=== PATIENT | male | born 1955 | race Caucasian/White ===

== ENCOUNTER 2018-02-09 20:05 | Observation (INO) | payer MEDICAID, SELFPAY ==
[2018-02-09] VITALS (25 sets, daily range): BP systolic 122–152; BP diastolic 63–101; PULSE 97–126; RESP 4–54; TEMP 36.3–37.6; O2SAT 81–98
[2018-02-09] MEDS: Albuterol/Ipratropium 3 ML UPD VIAL UPD (20:19)
[2018-02-09] MEDS: Albuterol 2.5 MG/3 ML INH SOLN VIAL 7.5 MG UPD (20:19)
--- NOTE | 2018-02-09 20:19 | DI.RAD_ITS ---
SYMPTOM/DIAGNOSIS: SHORTNESS OF BREATH PORTABLE AP CHEST: 2043 HOURS 02/09 The heart is not enlarged. There is question of increased radiodensity projected in right lower lung field , question of acute consolidation raised. Follow up PA and lateral chest requested for further evaluation. Otherwise, lungs appear clear. No gross pleural effusion seen on this frontal film. CONCLUSION: Question right lower lobe infiltrate. PA and lateral chest suggested for further evaluation.
--- NOTE | 2018-02-09 20:19 | ED.GENADUL_ITS ---
Discharge Plan Disposition Patient Disposition: [facility] INPATIENT Condition: Poor Discharge Details Chief Complaint: SOB Clinical Impression: Acute exacerbation of chronic obstructive pulmonary disease (COPD), Right lower lobe pneumonia Primary Care Provider: Wyatt Arnett ED Provider: Sameer Ledbetter [place] Meds and New Rx's Prescriptions: No Action aspirin [Aspirin Low-Strength] 81 MG tablet,chewable 81 mg PO DAILY RF: 0 Oxygen EACH Inhalation IN THE DAYTIME Qty: 0.5 RF: 0 Oxygen EACH Inhalation NIGHTLY Qty: 1 RF: 0 albuterol sulfate [ProAir HFA] 8.5 GM HFA aerosol inhaler 2 puff Inhalation Q6H PRN Qty: 3 RF: 3 fluticasone-salmeterol [Advair HFA] 8 GM HFA aerosol inhaler 2 puff Inhalation BID Qty: 3 RF: 4 ipratropium-albuterol [Combivent Respimat] 4 GM mist 1 puff Inhalation QID Qty: 3 RF: 3 ipratropium-albuterol 3 ML solution for nebulization 3 ml UPD QID Qty: 50 RF: 2 omeprazole 20 MG capsule,delayed release(DR/EC) 20 mg PO DAILY Qty: 90 RF: 4 Medical Decision Making Patient arrives in respiratory distress with markedly diminished breath sounds bilaterally and some very faint wheezing. Has history of COPD. Is reporting some streaks of blood in his sputum. He is ordered for a DuoNeb treatment followed by 7.5 mg of albuterol given over an hour. EKG is obtained and shows no acute ischemia. Chest x-ray and laboratory studies ordered. Solu-Medrol ordered. Patient is responding to treatments. His breathing rate is coming down. He is less distressed. He is having increased air movement and wheezes are louder. Laboratory studies are unremarkable. Troponin is negative. Chest x-ray shows COPD changes as well as a right lower infiltrate. Patient has not had a recent hospitalization. He was admitted in the spring of this year for similar presentation. He will be started on cefepime and Levaquin IV here. I have continued albuterol every hour. Case discussed with hospitalist. Patient at this point is doing much better and is lying at a 45 degree angle as opposed to sitting upright. Respiratory rate still a little fast but he is no longer labored. He has been seen by the hospitalist and is admitted for further management of COPD exacerbation and pneumonia. Medical Records Medical records reviewed: Yes I reviewed the patient's medical records. Lab Data Lab results reviewed: Yes I reviewed the patient's lab results. ECG Data Attestation: I personally reviewed and interpreted this ECG (s) as follows: Interpretation: Sinus tachycardia at a rate of 112. Normal axis and intervals. No acute ST elevations or depressions. HPI General Mode of arrival: wheelchair . Date/Time Provider Initiated Documentation: 02/09/18 20:17 . Information obtained by: patient, family and old records reviewed . HPI Narrative: Patient presents with difficulty breathing as well as complaint of coughing up blood. Patient has an old tracheostomy stoma status post laryngectomy. He reports having increasing shortness of breath, cough, hemoptysis since yesterday. He has some left-sided chest discomfort as well as left neck discomfort. He had no fever that he is aware of. He has been using his nebulizer machine at home with some relief. He has gotten progressively worse and presents now for evaluation. Related Data Home Medications Medication Instructions Recorded Confirmed Oxygen l INHALATION IN THE DAYTIME #0.5 05/13/13 08/30/13 Oxygen l INHALATION NIGHTLY #1 05/13/13 08/30/13 aspirin [Aspirin Low-Strength] 81 mg PO DAILY tab-cap 05/13/13 09/08/17 albuterol sulfate [ProAir HFA] 2 puff INHALATION Q6H PRN #3 02/13/17 inhaler fluticasone-salmeterol [Advair HFA] 2 puff INHALATION BID #3 inhaler 05/05/17 ipratropium-albuterol [Combivent 1 puff INHALATION QID #3 inhaler 08/08/17 Respimat] ipratropium-albuterol 3 ml UPD QID #50 vial 11/16/17 omeprazole 20 mg PO DAILY #90 tab-cap 11/16/17 Previous Rx's Medication Instructions Recorded albuterol sulfate [ProAir HFA] 2 puff INHALATION Q6H PRN #3 02/13/17 inhaler fluticasone-salmeterol [Advair HFA] 2 puff INHALATION BID #3 inhaler 05/05/17 ipratropium-albuterol [Combivent 1 puff INHALATION QID #3 inhaler 08/08/17 Respimat] ipratropium-albuterol 3 ml UPD QID #50 vial 11/16/17 omeprazole 20 mg PO DAILY #90 tab-cap 11/16/17 Allergies Allergy/AdvReac Type Severity Reaction Status Date / Time Influenza Virus Vaccines Allergy Severe Unverified 02/09/18 23:03 pneumococcal vaccine Allergy Severe swells up Unverified 02/09/18 23:03 Review of Systems Review of Systems Unobtainable due to (unable to obtain to acuity of situation/respiratory distress) PFSH Family History Mother Neoplasm Cerebrovascular accident Father Diabetes Heart disease Myocardial infarction Cerebrovascular accident Sister Neoplasm Brother Heart disease Asthma Grandfather No problems noted. Grandfather No problems noted. Grandmother Neoplasm Grandmother No problems noted. Brother No problems noted. Sister No problems noted. Sister No problems noted. Son No problems noted. Daughter No problems noted. Medical History GERD (gastroesophageal reflux disease) (Chronic) COPD (chronic obstructive pulmonary disease) Malignant neoplasm of hypopharynx Pulmonary HTN Social History Smoking/Tobacco Use Status: Former Tobacco Use Surgical History History of esophageal surgery (Inactive) Colonoscopy - MAC Status post laryngectomy Exam Const General: acute distress and anxious Nutritional Appearance: obese Orientation: alert and oriented x3 HENMT Head: normocephalic and atraumatic Eyes Conjunctivae: conjunctivae normal Neck Neck: supple and other (trach stoma present) Resp Effort & Inspection: respiratory distress, tachypneic and uses accessory muscles Auscultation: diminished lung sounds (very decreased) bilaterally and wheezes ( very faint) Cardio Rate: tachycardic Rhythm: regular rhythm Heart Sounds: S1 normal and S2 normal GI Palpation: soft and nontender Skin General skin exam: no rashes or lesions noted Neuro General: alert, oriented x3, no focal motor deficits and CN's II-XI intact bilaterally Extrem General: normal to inspection and no edema Critical Care Time Critical Care Time: Yes Total Critical Care Time: 60
[2018-02-09 20:31] LABS: Abs Immature Grans 0.04 k/cumm (0.0-0.09); Absolute Basophil Count 0.01 k/cumm (0.0-0.2); Absolute Lymphocyte Count 1.39 k/cumm (1.2-3.4); Absolute Monocyte Count 0.88 k/cumm (0.11-0.7); Absolute Neutrophil Count 7.75 k/cumm (1.2-6.7); Basophils % 0.1; HCT 44.2 % (40.0-50.0); HGB 14.7 g/dL (13.5-17.5); Immature Grans % 0.4; Lymphocytes % 13.7; Mean Corp. HGB Concentration 33.3 g/dL (32.0-36.0); Mean Corpuscular Hemoglobin 31.5 pg (27.0-33.0); Mean Corpuscular Volume 94.6 fL (80-95); Mean Platelet Volume 8.9 fL (8.0-11.0); Monocytes % 8.7; Neutrophils % 76.1; Platelet Count 264 x1000/uL (130-400); RBC 4.67 m/cumm (4.50-6.00); White Blood Cell Count 10.17 k/cumm (4.4-10.8)
[2018-02-09] MEDS: Normal Saline Flush 10 ML SYR IVP (20:42)
[2018-02-09] MEDS: methylPREDNISolone SUCC 125 MG VIAL IVP (20:42)
[2018-02-09 20:45] LABS: ALT 70 U/L (12-78); AST 36 U/L (15-37); Albumin 3.4 g/dL (3.4-5.0); Alkaline Phosphatase 157 U/L (46-116); Anion Gap 9.4 mmol/L (3-11); BUN 18 mg/dL (7-18); CO2 30.6 mmol/L (21.0-32.0); CREATININE 0.92 mg/dL (0.70-1.30); Calcium 8.9 mg/dL (8.5-10.1); Chloride 99 mmol/L (98-107); Glucose 112 mg/dL (70-100); Magnesium 2.4 mg/dL (1.8-2.4); Sodium 139 mmol/L (136-145)
--- NOTE | 2018-02-09 21:00 | DI.VRAD_ITS ---
EXAM: XR Chest, 1 View CLINICAL HISTORY: 62 years old, male; Signs and symptoms; Shortness of breath TECHNIQUE: Frontal view of the chest. COMPARISON: CR PORTABLE CHEST ONE VIEW 07/11/2017 12:29 PM FINDINGS: Lungs: Pulmonary hyperinflation is again seen consistent with emphysema. Patchy interstitial opacity in the right lung base. Pleural space: Slight blunting of the right costophrenic angle. No pneumothorax. Heart: No focal pathology. No cardiomegaly. Mediastinum: Unremarkable. Bones/joints: Unremarkable. IMPRESSION: 1. Pulmonary hyperinflation is again seen consistent with emphysema. 2. Patchy interstitial opacity in the right lung base. A new infiltrate or aspiration is possible. 3. Slight blunting of the right costophrenic angle. Consider trace effusion versus pleural thickening. Dictated and Authenticated by: Venita Guadarrama MD. Ordering:GABRIELLE ANDERSON MD
[2018-02-09 21:02] LABS: Bilirubin, Total 1.3 mg/dL (0.2-1.0); Total Protein 8.8 g/dL (6.4-8.2)
[2018-02-09 21:05] LABS: Troponin I < 0.02 ng/mL (0.00-0.06)
[2018-02-09] MEDS: CEFEPIME 1 GM in Normal Saline 50 ML IVPB (22:00)
--- NOTE | 2018-02-09 22:12 | W.PM.HP.N ---
Date of service: 02/09/18 Time of Service: 22:12 Assessment and Plan (1) COPD (chronic obstructive pulmonary disease): Current visit: Yes Status: Chronic COPD exacerbation. Unclear that there is in fact pneumonia but at a minimal amount certainly bronchitis. We will continue steroids, updrafts and antibiotics. I think that Levaquin alone is probably sufficient coverage here History of Present Illness Chief Complaint: cough and SOB Narrative: Patient is a 62-year-old male with COPD who comes in with a 2 days of cough and shortness of breath. In the emergency room he was noted to be wheezing and initial evaluation showed possible right lower lobe pneumonia. He was given updrafts, steroids and doses of cefepime and Levaquin. He states he feels much better. He is admitted for further evaluation and management Review of Systems Review of Systems All systems reviewed & are unremarkable except as noted in HPI and below PFSH Family History Mother Neoplasm Cerebrovascular accident Father Diabetes Heart disease Myocardial infarction Cerebrovascular accident Sister Neoplasm Brother Heart disease Asthma Grandfather No problems noted. Grandfather No problems noted. Grandmother Neoplasm Grandmother No problems noted. Brother No problems noted. Sister No problems noted. Sister No problems noted. Son No problems noted. Daughter No problems noted. Medical History COPD (chronic obstructive pulmonary disease) Malignant neoplasm of hypopharynx Pulmonary HTN Status post laryngectomy Social History Smoking/Tobacco Use Status: Former Tobacco Use Surgical History Colonoscopy - MAC Meds Home Medications Medication Instructions Recorded Confirmed Type Oxygen l INHALATION IN THE DAYTIME #0.5 05/13/13 08/30/13 History Oxygen l INHALATION NIGHTLY #1 05/13/13 08/30/13 History aspirin [Aspirin Low-Strength] 81 mg PO DAILY tab-cap 05/13/13 09/08/17 History albuterol sulfate [ProAir HFA] 2 puff INHALATION Q6H PRN #3 02/13/17 Rx inhaler fluticasone-salmeterol [Advair HFA] 2 puff INHALATION BID #3 inhaler 05/05/17 Rx ipratropium-albuterol [Combivent 1 puff INHALATION QID #3 inhaler 08/08/17 Rx Respimat] ipratropium-albuterol 3 ml UPD QID #50 vial 11/16/17 Rx magnesium oxide 400 mg PO HS #90 tab 11/16/17 Rx omeprazole 20 mg PO DAILY #90 tab-cap 11/16/17 Rx Allergies Allergy/AdvReac Type Severity Reaction Status Date / Time Influenza Virus Vaccines Allergy Severe Unverified 09/19/17 06:42 pneumococcal vaccine Allergy Severe swells up Unverified 09/19/17 06:42 Exam Narrative Exam Narrative: Blood pressure 132/73 pulse approximately 116 and record respirations at the time of my exam approximately 24. I am unable to locate a recorded temperature. Patient appears comfortable. HEENT unremarkable neck of note for a tracheostomy. Lungs show diminished breath sounds with faint wheezing. Heart is distant but tachycardic and regular abdomen is soft and nontender extremities without edema neurological patient is alert and oriented. He is unable to speak due to prior laryngectomy but he communicates lucidly with yes and no responses to questions and some hand signals. He moves all 4 extremities. Results Labs : 02/09/18 20:21 02/09/18 20:21 Laboratory Results - last 24 hr 02/09/18 02/09/18 20:21 20:21 WBC 10.17 RBC 4.67 Hgb 14.7 Hct 44.2 MCV 94.6 MCH 31.5 MCHC 33.3 RDW 13.0 Plt Count 264 MPV 8.9 Immature Gran % 0.4 Neutrophils % 76.1 Lymphocytes % 13.7 Monocytes % 8.7 Eosinophils % 1.0 Basophils % 0.1 Absolute Neutrophils 7.75 H Absolute Lymphocytes 1.39 Absolute Monocytes 0.88 H Absolute Eosinophils 0.10 Absolute Basophils 0.01 Sodium 139 Potassium 4.0 Chloride 99 Carbon Dioxide 30.6 Anion Gap 9.4 BUN 18 Creatinine 0.92 Estimated GFR/1.73 m2 >= 60.00 Glucose 112 H Calcium 8.9 Magnesium 2.4 Total Bilirubin 1.3 H AST 36 ALT 70 Alkaline Phosphatase 157 H Troponin I < 0.02 Total Protein 8.8 H Albumin 3.4
[2018-02-09] MEDS: LEVOFLOXACIN 500 MG/100 ML BAG 100 MG IVPB (22:25)
[2018-02-10] VITALS (9 sets, daily range): BP systolic 124–132; BP diastolic 67–79; PULSE 83–86; RESP 2–30; TEMP 36–36.1; O2SAT 93–96
[2018-02-10] MEDS: Albuterol/Ipratropium 3 ML UPD VIAL UPD ×5 (00:32→23:51)
[2018-02-10] MEDS: methylPREDNISolone SUCC 40 MG VIAL IVP ×3 (04:36→21:05)
[2018-02-10] MEDS: Normal Saline Flush 10 ML SYR IVP ×3 (04:37→21:06)
--- NOTE | 2018-02-10 07:06 | PDOC.CMIN ---
- If Service Date Differs Date of service: 02/10/18 Time of Service: 07:06 Care Management Initial Assess REASON FOR HOSPITALIZATION:: COPD. PAST MEDICAL HISTORY/PAST SURGICAL HISTORY:: COPD, GERD, malignant neoplasm of hypopharynx, pulmonary hypertension. Surgical hx: colonoscopy-MAC, esophageal surgery, laryngectomy. CURRENT FUNCTIONAL STATUS:: Hussein is sitting on the edge of his bed when CM visits this morning. Patient has a history of COPD s/p laryngectomy with tracheostomy for malignant neoplasm of the hypopharynx. Hussein does not have a 'voice box' so communicating is difficult. He is able to report that he feels better, is not in need of anything and is comfortable. ADVANCE DIRECTIVES:: On file at [facility]. Has patient been provided with information about the portal?: Yes Did the patient sign up for the portal?: No CODE STATUS:: Full Code INSURANCE COVERAGE / FINANCIAL ISSUES:: Medicaid. PRIMARY CARE PHYSICIAN:: Wyatt Arnett. POTENTIAL DISCHARGE NEEDS:: Follow up appointment with PCP. PATIENT/FAMILY EDUCATION NEEDS:: Discharge education, any limitations, and follow up plan of care. Ask Me Three discussion. ANTICIPATED BARRIERS TO DISCHARGE:: No anticipated barriers to discharge. PLAN:: Hussein will discharge home when medically ready per MD. Anticipate patient will discharge with no services and follow up with PCP. CM will continue to offer support to patient and care team regarding discharge planning and disposition.
--- NOTE | 2018-02-10 07:10 | INITIAL_ITS ---
- If Service Date Differs Date of service: 02/10/18 Time of Service: 07:06 Care Management Initial Assess REASON FOR HOSPITALIZATION:: COPD. PAST MEDICAL HISTORY/PAST SURGICAL HISTORY:: COPD, GERD, malignant neoplasm of hypopharynx, pulmonary hypertension. Surgical hx: colonoscopy-MAC, esophageal surgery, laryngectomy. CURRENT FUNCTIONAL STATUS:: Hussein is sitting on the edge of his bed when CM visits this morning. Patient has a history of COPD s/p laryngectomy with tracheostomy for malignant neoplasm of the hypopharynx. Hussein does not have a ' voice box' so communicating is difficult. He is able to report that he feels better, is not in need of anything and is comfortable. ADVANCE DIRECTIVES:: On file at [facility]. Has patient been provided with information about the portal?: Yes Did the patient sign up for the portal?: No CODE STATUS:: Full Code INSURANCE COVERAGE / FINANCIAL ISSUES:: Medicaid. PRIMARY CARE PHYSICIAN:: Wyatt Arnett. POTENTIAL DISCHARGE NEEDS:: Follow up appointment with PCP. PATIENT/FAMILY EDUCATION NEEDS:: Discharge education, any limitations, and follow up plan of care. Ask Me Three discussion. ANTICIPATED BARRIERS TO DISCHARGE:: No anticipated barriers to discharge. PLAN:: Hussein will discharge home when medically ready per MD. Anticipate patient will discharge with no services and follow up with PCP. CM will continue to offer support to patient and care team regarding discharge planning and disposition.
[2018-02-10] MEDS: Omeprazole 20 MG CAPCR PO (08:24)
[2018-02-10] MEDS: Aspirin 81 MG CHEW PO (08:24)
--- NOTE | 2018-02-10 11:23 | W.PM.PROGNOT ---
Assessment and Plan (1) COPD (chronic obstructive pulmonary disease): Current visit: Yes Status: Chronic Patient states he feels his respiratory status has improved overnight we will continue IV steroids levofloxacin daily scheduled duo nebs. Continue to closely monitor (2) Acute respiratory failure: Current visit: No Status: Acute Improved with oxygen saturations back to his baseline on his home oxygen delivery rate. Will continue to monitor (3) DVT prophylaxis: Current visit: Yes Status: Acute Enoxaparin daily KASIA stockings (4) Discharge planning issues: Current visit: Yes Status: Acute Will discharge to home with no new services once he is medically stable (5) GERD (gastroesophageal reflux disease): Current visit: Yes Status: Chronic Stable continue omeprazole daily (6) Pulmonary hypertension: Current visit: No Status: Chronic Continue oxygen continuous Subjective Patient reports: no new complaints and feels better Interval history since last seen: This is a 62-year-old male patient with a history of COPD 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 Workup in the emergency department was concerning for a possible right lower lobe pneumonia and COPD exacerbation. He has been started on steroids, updrafts and antibiotics. He was admitted to the hospitalist services for inpatient management. Today he states his breathing is slightly improved but not back to baseline. He states he is eating and drinking bowels and bladder are functioning, oxygen sats were in the low 90s on his home flow of oxygen. He denies fever or chills. There are no new complaints Exam Const General: cooperative, healthy appearing, comfortable and no acute distress Nutritional Appearance: average body habitus Orientation: alert, awake and oriented x3 HENMT Head: normal to inspection Mouth: moist mucous membranes abnormal Neck Neck: other (Trach site is intact, stoma edges clear no redness or purulent drainage. Patient self suctions without difficulty) Resp Effort & Inspection: normal respiratory effort, cough, not labored and no respiratory distress Auscultation: diminished lung sounds (Bilaterally no wheezing or coarse breath sounds noted) Cardio Rate: regular rate Rhythm: regular rhythm GI Inspection: normal to inspection Palpation: soft and nontender Skin General skin exam: no rashes or lesions noted Neuro General: alert, awake and oriented x3 Extrem General: normal to inspection and full ROM Objective Objective Clinical Data: Abnormal lab results 02/09/18 02/09/18 Range/Units 20:21 20:21 Absolute Neutrophils 7.75 H (1.2-6.7) k/cumm Absolute Monocytes 0.88 H (0.11-0.7) k/cumm Glucose 112 H (70-100) mg/dL Total Bilirubin 1.3 H (0.2-1.0) mg/dL Alkaline Phosphatase 157 H (46-116) U/L Total Protein 8.8 H (6.4-8.2) g/dL Vital Signs Temperature 36 C L 02/10/18 07:15 Temperature Source Tympanic 02/10/18 07:15 Pulse 86 02/10/18 07:15 Pulse Rhythm Regular 02/09/18 23:22 Pulse 108 H 02/09/18 22:20 Respiratory Rate 18 02/10/18 07:15 Respiratory Effort 02/09/18 23:22 Respiratory Depth Normal 02/09/18 23:22 Respiratory Pattern Normal 02/09/18 23:22 Blood Pressure 132/79 02/10/18 07:15 Blood Pressure Mean 85 02/09/18 22:01 Blood Pressure Position Sitting 02/09/18 20:10 Pulse Oximetry 93 L 02/10/18 07:15 Oxygen Delivery Method Room Air 02/10/18 07:15 Oxygen Flow Rate 0 02/10/18 07:15 Pain Level 3 02/09/18 20:35 Comment 02/09/18 20:10 Intake & Output 02/09/18 02/09/18 02/10/18 11:59 23:59 11:59 Intake Total 110 / 110 900 / 900 Balance 110 / 110 900 / 900 Weight 98.883 kg 98.883 kg Intake: IV 110 / 110 Oral 900 / 900 Laboratory Results WBC 10.17 k/cumm (4.4-10.8) 02/09/18 20:21 RBC 4.67 m/cumm (4.50-6.00) 02/09/18 20:21 Hgb 14.7 g/dL (13.5-17.5) 02/09/18 20:21 Hct 44.2 % (40.0-50.0) 02/09/18 20:21 MCV 94.6 fL (80-95) 02/09/18 20:21 MCH 31.5 pg (27.0-33.0) 02/09/18 20:21 MCHC 33.3 g/dL (32.0-36.0) 02/09/18 20:21 RDW 13.0 % (11.8-14.1) 02/09/18 20:21 Plt Count 264 x1000/uL (130-400) 02/09/18 20:21 MPV 8.9 fL (8.0-11.0) 02/09/18 20:21 Immature Gran % 0.4 02/09/18 20:21 Neutrophils % 76.1 02/09/18 20:21 Lymphocytes % 13.7 02/09/18 20:21 Monocytes % 8.7 02/09/18 20:21 Eosinophils % 1.0 02/09/18 20: Basophils % 0.1 02/09/18 20:21 Absolute Neutrophils 7.75 k/cumm (1.2-6.7) H 02/09/18 20:21 Absolute Lymphocytes 1.39 k/cumm (1.2-3.4) 02/09/18 20:21 Absolute Monocytes 0.88 k/cumm (0.11-0.7) H 02/09/18 20:21 Absolute Eosinophils 0.10 k/cumm (0.0-0.7) 02/09/18 20:21 Absolute Basophils 0.01 k/cumm (0.0-0.2) 02/09/18 20:21 Sodium 139 mmol/L (136-145) 02/09/18 20:21 Potassium 4.0 mmol/L (3.5-5.1) 02/09/18 20:21 Chloride 99 mmol/L (98-107) 02/09/18 20:21 Carbon Dioxide 30.6 mmol/L (21.0-32.0) 02/09/18 20:21 Anion Gap 9.4 mmol/L (3-11) 02/09/18 20:21 BUN 18 mg/dL (7-18) 02/09/18 20:21 Creatinine 0.92 mg/dL (0.70-1.30) 02/09/18 20:21 Estimated GFR/1.73 m2 >= 60.00 (mL/min/1.73m2) 02/09/18 20:21 Glucose 112 mg/dL (70-100) H 02/09/18 20:21 Calcium 8.9 mg/dL (8.5-10.1) 02/09/18 20:21 Magnesium 2.4 mg/dL (1.8-2.4) 02/09/18 20:21 Total Bilirubin 1.3 mg/dL (0.2-1.0) H 02/09/18 20:21 AST 36 U/L (15-37) 02/09/18 20:21 ALT 70 U/L (12-78) 02/09/18 20:21 Alkaline Phosphatase 157 U/L (46-116) H 02/09/18 20:21 Troponin I < 0.02 ng/mL (0.00-0.06) 02/09/18 20:21 Total Protein 8.8 g/dL (6.4-8.2) H 02/09/18 20:21 Albumin 3.4 g/dL (3.4-5.0) 02/09/18 20:21
[2018-02-10] MEDS: LEVOFLOXACIN 750 MG/150 ML BAG 150 MG IVPB (21:07)
[2018-02-11] MEDS: Normal Saline Flush 10 ML SYR IVP (05:00)
[2018-02-11] MEDS: methylPREDNISolone SUCC 40 MG VIAL IVP (05:00)
[2018-02-11] MEDS: Albuterol/Ipratropium 3 ML UPD VIAL UPD (07:13)
[2018-02-11 07:25] VITALS: BP 133/80; PULSE 78; RESP 16; TEMP 36.2; O2SAT 98
[2018-02-11] MEDS: Enoxaparin 40 MG/0.4 ML SYR SC (08:22)
[2018-02-11] MEDS: Aspirin 81 MG CHEW PO (08:22)
[2018-02-11] MEDS: Omeprazole 20 MG CAPCR PO (08:22)
--- NOTE | 2018-02-11 11:33 | PDOC.CMDIS ---
- If Service Date Differs Date of service: 02/11/18 Time of Service: 11:33 LACE Index Scoring Tool - Questions: Length of Stay (in days): 3 Acuity (Admit via E.D.?): Yes Comorbidities: Chronic Pulmonary Disease E.D. Visits: 3 - Answers: Total Score: 11 Risk of Readmission: High Risk Care Management Discharge Reason for Hospitalization: COPD. Discharge Plan: Hussein will discharge home when medically ready per MD. Anticipate patient will discharge with no services and follow up with his PCP. Hussein will need supplemental O2 for transport. Hussein will transport via private vehicle with his sister. Patient/Family Education Needs: Discharge education, any limitations and follow up plan of care. Ask Me Three discussion. Hussein will require supplemental O2 for transport.
--- NOTE | 2018-02-11 12:09 | DSE_ITS ---
Date of service: 02/11/18 DS: Diagnosis Discharge Diagnosis (1) COPD (chronic obstructive pulmonary disease): Status: Chronic (2) Acute respiratory failure: Status: Acute (3) DVT prophylaxis: Status: Acute (4) Discharge planning issues: Status: Acute (5) GERD (gastroesophageal reflux disease): Status: Chronic (6) Pulmonary hypertension: Status: Chronic Discharge Plan Disposition Patient Disposition: HOME Condition: Improving Discharge Details Reason For Visit: COPD Admit Date/Time: 02/09/18 22:21 Admit Provider: Onel Zuñiga Attending Provider: Onel Zuñiga Primary Care Provider: Wyatt Arnett [facility] Course Hospital Course: This is a 62-year-old male patient with a history of COPD 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 Workup in the emergency department was concerning for a possible right lower lobe pneumonia and COPD exacerbation. He has been started on steroids, updrafts and antibiotics. He was admitted to the hospitalist services for inpatient management. His symptoms have continued to improve. He states he is eating and drinking bowels and bladder are functioning, oxygen sats were in the low 90s on his home flow of oxygen. He denies fever or chills. There are no new complaints. Hemodynamically has been stable and is ready for discharge to home. He will be advised to follow-up with his primary care provider this week and to return sooner for new or worsening symptoms. His prescriptions will be called to [facility] [place]. He will complete a steroid taper and 3 more days of levofloxacin to complete a 5-day course Home Meds and New Rx's Prescriptions: New levofloxacin [Levaquin] 750 mg tablet 750 mg PO HS Qty: 3 RF: 0 prednisone 10 mg tablet 10 mg PO DAILY Qty: 40 RF: 0 Continue aspirin [Aspirin Low-Strength] 81 MG tablet,chewable 81 mg PO DAILY RF: 0 Oxygen EACH Inhalation IN THE DAYTIME Qty: 0.5 RF: 0 Oxygen EACH Inhalation NIGHTLY Qty: 1 RF: 0 albuterol sulfate [ProAir HFA] 8.5 GM HFA aerosol inhaler 2 puff Inhalation Q6H PRN Qty: 3 RF: 3 fluticasone-salmeterol [Advair HFA] 8 GM HFA aerosol inhaler 2 puff Inhalation BID Qty: 3 RF: 4 ipratropium-albuterol [Combivent Respimat] 4 GM mist 1 puff Inhalation QID Qty: 3 RF: 3 ipratropium-albuterol 3 ML solution for nebulization 3 ml UPD QID Qty: 50 RF: 2 omeprazole 20 MG capsule,delayed release(DR/EC) 20 mg PO DAILY Qty: 90 RF: 4 Discharge Instructions Instructions: COPD (Chronic Obstructive Pulmonary Disease) (DC) Additional Instructions: Continue your antibiotics Levaquin 750 mg starting tonight for 3 more nights to complete a 5-day course Steroid taper prednisone starting with 40 mg daily for 3 days then 30 mg daily for 3 days then 20 mg daily for 3 days then 10 mg daily for 3 days then 5 mg daily for 3 days then discontinue Stand Alone Forms: Nursing Discharge Form Referrals: Wyatt Arnett MD [Primary Care Provider] - (Please call your PCP on Monday to schedule a follow-up appointment for within two weeks. [phone]) Activity:: Activity as Tolerated Equipment/Supplies:: No Equipment Needed Diet:: As Tolerated Discharge Orders Discharge Orders: Discharge Order (Routine); Ordered 02/11/18 Ordered By: Mony Block Exam Const General: cooperative, healthy appearing, comfortable and no acute distress Nutritional Appearance: average body habitus Orientation: alert, awake and oriented x3 HENMT Head: normal to inspection, normocephalic and atraumatic Mouth: moist mucous membranes Neck Neck: other (trach site clear and intact and patent) Chest Chest: normal inspection of the chest Resp Effort & Inspection: normal respiratory effort Auscultation: diminished lung sounds bilaterally and wheezes expiratory wheezes (faint) Cardio Rate: regular rate Rhythm: regular rhythm GI Inspection: normal to inspection Palpation: soft Auscultation: normal bowel sounds Skin General skin exam: no rashes or lesions noted Neuro General: alert, awake and oriented x3 Extrem General: normal to inspection and full ROM DS: Data Vitals/I&O Vitals and I&O: Vital Signs Temperature 36.2 C L 02/11/18 07:25 Temperature Source Tympanic 02/11/18 07:25 Pulse 78 02/11/18 07:25 Pulse Rhythm Regular 02/11/18 10:05 Pulse 108 H 02/09/18 22:20 Respiratory Rate 16 02/11/18 07:25 Respiratory Effort Non-Labored 02/11/18 10:05 Respiratory Depth Normal 02/11/18 10:05 Respiratory Pattern Normal 02/11/18 10:05 Blood Pressure 133/80 02/11/18 07:25 Blood Pressure Mean 85 02/09/18 22:01 Blood Pressure Position Sitting 02/09/18 20:10 Pulse Oximetry 98 02/11/18 07:25 Oxygen Delivery Method Trach Collar 02/11/18 07:25 Oxygen Flow Rate 5 02/11/18 07:25 Fraction of Inspired Oxygen (FIO2) 02/10/18 23:37 Pain Level 3 02/09/18 20:35 Comment 02/09/18 20:10 Intake & Output 02/10/18 02/11/18 02/11/18 23:59 11:59 23:59 Intake Total 640 / 640 Balance 640 / 640 Intake: IV 150 / 150 Oral 490 / 490 Pending studies at discharge: Insertion of indwelling urinary catheter (07/01/13) Introduction of Other Therapeutic Substance into Respiratory Tract, Via Natural or Artificial Opening (07/11/17) Monitoring of Cardiac Electrical Activity, External Approach (07/11/17) Non-invasive mechanical ventilation (07/01/13) [Endoscopic] polypectomy of rectum (08/30/13) WBC 10.17 k/cumm (4.4-10.8) 02/09/18 20:21 RBC 4.67 m/cumm (4.50-6.00) 02/09/18 20:21 Hgb 14.7 g/dL (13.5-17.5) 02/09/18 20:21 Hct 44.2 % (40.0-50.0) 02/09/18 20:21 MCV 94.6 fL (80-95) 02/09/18 20:21 MCH 31.5 pg (27.0-33.0) 02/09/18 20:21 MCHC 33.3 g/dL (32.0-36.0) 02/09/18 20:21 RDW 13.0 % (11.8-14.1) 02/09/18 20:21 Plt Count 264 x1000/uL (130-400) 02/09/18 20:21 MPV 8.9 fL (8.0-11.0) 02/09/18 20:21 Immature Gran % 0.4 02/09/18 20:21 Neutrophils % 76.1 02/09/18 20:21 Lymphocytes % 13.7 02/09/18 20:21 Monocytes % 8.7 02/09/18 20:21 Eosinophils % 1.0 02/09/18 20:21 Basophils % 0.1 02/09/18 20:21 Absolute Neutrophils 7.75 k/cumm (1.2-6.7) H 02/09/18 20:21 Absolute Lymphocytes 1.39 k/cumm (1.2-3.4) 02/09/18 20:21 Absolute Monocytes 0.88 k/cumm (0.11-0.7) H 02/09/18 20:21 Absolute Eosinophils 0.10 k/cumm (0.0-0.7) 02/09/18 20:21 Absolute Basophils 0.01 k/cumm (0.0-0.2) 02/09/18 20:21 Sodium 139 mmol/L (136-145) 02/09/18 20:21 Potassium 4.0 mmol/L (3.5-5.1) 02/09/18 20:21 Chloride 99 mmol/L (98-107) 02/09/18 20:21 Carbon Dioxide 30.6 mmol/L (21.0-32.0) 02/09/18 20:21 Anion Gap 9.4 mmol/L (3-11) 02/09/18 20:21 BUN 18 mg/dL (7-18) 02/09/18 20:21 Creatinine 0.92 mg/dL (0.70-1.30) 02/09/18 20:21 Estimated GFR/1.73 m2 >= 60.00 (mL/min/1.73m2) 02/09/18 20:21 Glucose 112 mg/dL (70-100) H 02/09/18 20:21 Calcium 8.9 mg/dL (8.5-10.1) 02/09/18 20:21 Magnesium 2.4 mg/dL (1.8-2.4) 02/09/18 20:21 Total Bilirubin 1.3 mg/dL (0.2-1.0) H 02/09/18 20:21 AST 36 U/L (15-37) 02/09/18 20:21 ALT 70 U/L (12-78) 02/09/18 20:21 Alkaline Phosphatase 157 U/L (46-116) H 02/09/18 20:21 Troponin I < 0.02 ng/mL (0.00-0.06) 02/09/18 20:21 Total Protein 8.8 g/dL (6.4-8.2) H 02/09/18 20:21 Albumin 3.4 g/dL (3.4-5.0) 02/09/18 20:21 Labs on day of discharge: Preliminary micro results at discharge 02/09/18 22:48 Blood Culture - Preliminary Blood NO GROWTH 24 HOURS 02/09/18 22:23 Blood Culture - Preliminary Blood NO GROWTH 24 HOURS
== END 2018-02-11 13:44 | disposition home or self-care (01) ==
LOC: ER 23:10 → MS 02-10 07:14
PROVIDERS: Admitting Provider General Practice; Emergency Provider Emergency Medicine; PCP Family Medicine; Visit Provider Family Medicine
DX: J44.1 Chronic obstructive pulmonary disease with (acute) exacerbation (principal); J96.00 Acute respiratory failure, unspecified whether with hypoxia or hypercapnia; K21.9 Gastro-esophageal reflux disease without esophagitis; I27.20 Pulmonary hypertension, unspecified; Z87.891 Personal history of nicotine dependence; Z85.21 Personal history of malignant neoplasm of larynx; Z90.02 Acquired absence of larynx
CPT/HCPCS: 36415; 80053; 87040; 93005; 94640; 96365; 96367; 96375; 99222; 99232; 99238; 99291; J1650; 71045; 83735; 84484; 85025; 93010; 99217; 99219; 99225; G0378; J1956; J2930; J7613; J7620

== ENCOUNTER 2018-02-22 09:53 | Outpatient (CLI) | payer MEDICAID, SELFPAY ==
[2018-02-22 11:16] LABS: Abs Immature Grans 0.08 k/cumm (0.0-0.09); Absolute Basophil Count 0.02 k/cumm (0.0-0.2); Absolute Eosinophil Count 0.08 k/cumm (0.0-0.7); Absolute Lymphocyte Count 0.83 k/cumm (1.2-3.4); Absolute Monocyte Count 0.45 k/cumm (0.11-0.7); Basophils % 0.2; Eosinophils % 0.7; Immature Grans % 0.7; Lymphocytes % 6.9; Mean Corp. HGB Concentration 32.6 g/dL (32.0-36.0); Mean Corpuscular Hemoglobin 31.2 pg (27.0-33.0); Mean Corpuscular Volume 95.6 fL (80-95); Mean Platelet Volume 9.1 fL (8.0-11.0); Monocytes % 3.7; Neutrophils % 87.8; Platelet Count 265 x1000/uL (130-400); RBC 4.81 m/cumm (4.50-6.00); RBC Distribution Width 13.2 % (11.8-14.1); White Blood Cell Count 12.05 k/cumm (4.4-10.8)
[2018-02-22 11:25] LABS: Absolute Neutrophil Count 10.58 k/cumm (1.2-6.7)
[2018-02-22 12:02] LABS: ALT 72 U/L (12-78); AST 28 U/L (15-37); Albumin 3.4 g/dL (3.4-5.0); Alkaline Phosphatase 147 U/L (46-116); Anion Gap 6.7 mmol/L (3-11); BUN 23 mg/dL (7-18); Bilirubin, Total 0.4 mg/dL (0.2-1.0); CO2 31.3 mmol/L (21.0-32.0); CREATININE 0.93 mg/dL (0.70-1.30); Calcium 8.6 mg/dL (8.5-10.1); Chloride 102 mmol/L (98-107); Glucose 112 mg/dL (70-100); Sodium 140 mmol/L (136-145); TSH (W/Ref FT4) 2.01 uIU/mL (0.358-3.74); Total Protein 7.3 g/dL (6.4-8.2)
== END 2018-02-22 10:13 ==
PROVIDERS: PCP Family Medicine; Visit Provider Internal Medicine
DX: J44.9 Chronic obstructive pulmonary disease, unspecified (principal); I27.0 Primary pulmonary hypertension; R60.9 Edema, unspecified; Z90.02 Acquired absence of larynx; E07.9 Disorder of thyroid, unspecified; C13.9 Malignant neoplasm of hypopharynx, unspecified
CPT/HCPCS: 36415; 80053; 84443; 85025

== ENCOUNTER 2018-02-28 01:05 | Outpatient (CLI) | payer MEDICAID, SELFPAY ==
--- NOTE | 2018-02-28 14:41 | DI.CT_ITS ---
SYMPTOMS/DIAGNOSIS: NECK PAIN, THYROID MASS, M54.2, E07.9, TRACH HOLE IN THROAT CT OF THE NECK: The study was carried out with an intravenous administration of 100 cc's of Omnipaque 350. Comparison is made with the prior examination of 07/09/17. The patient is status post laryngectomy. As visualized the park and hypopharynx appear intact or no retropharyngeal soft tissue abnormality. Again noted is a tracheostomy stoma without a endotracheal tube in place. Again noted is tracheal narrowing. The transverse diameter of the trachea measuring 7.4 mm vs 5.2 mm on the prior study. Again noted is an enlarged left thyroid lobe unchanged with absence of the right thyroid lobe. SUMMARY: The left thyroid lobe is somewhat enlarged and is unchanged in size when compared with the prior examination of 07/09/17. The patient has had a laryngectomy. The transverse diameter of the trachea today measures 7.4 mm vs 4- 6 mm on the prior study. No mass or adenopathy is identified. A tracheostomy stoma is well maintained. There is no evidence of an endotracheal tube.
[2018-02-28] MEDS: Omnipaque 350 MG/ML 100 ML BTL IJ (15:39)
== END 2018-02-28 01:25 ==
PROVIDERS: PCP Family Medicine; Visit Provider Internal Medicine
DX: M54.2 Cervicalgia (principal); E07.9 Disorder of thyroid, unspecified; Z90.02 Acquired absence of larynx; Z93.0 Tracheostomy status
CPT/HCPCS: 70491; J3490

== ENCOUNTER 2018-05-16 15:15 | Emergency (ER) | payer MEDICAID, SELFPAY ==
[2018-05-16 15:23] VITALS: BP 138/73; PULSE 109; RESP 26; TEMP 36.5; O2SAT 87
[2018-05-16] MEDS: Albuterol/Ipratropium 3 ML UPD VIAL UPD ×3 (15:32→16:49)
--- NOTE | 2018-05-16 15:36 | DI.RAD_ITS ---
SYMPTOMS/DIAGNOSIS: COUGH, CHILLS, SHORTNESS OF BREATH PA AND LATERAL CHEST: Comparison is made with January,. The heart size is normal. The lungs are mildly hyperinflated. No infiltrate or effusion is seen. IMPRESSION: Negative chest x-ray.
--- NOTE | 2018-05-16 15:41 | ED.GENADUL_ITS ---
Discharge Plan Disposition Patient Disposition: HOME Condition: Improving Discharge Details Chief Complaint: SOB Clinical Impression: Acute exacerbation of chronic obstructive pulmonary disease (COPD) Reason For Visit: SOB Primary Care Provider: Wyatt Arnett ED Provider: Mynor Lopes Home Meds and New Rx's Prescriptions: New prednisone 20 mg tablet 40 mg PO DAILY 5 Days Qty: 10 RF: 0 azithromycin 250 mg tablet 250 mg PO DAILY 4 Days Qty: 4 RF: 0 Continued ProAir HFA 90 mcg/actuation HFA aerosol inhaler 2 puff Inhalation Q6H PRN Qty: 3 RF: 3 Advair HFA 115-21 mcg/actuation HFA aerosol inhaler 2 puff Inhalation BID Qty: 3 RF: 4 aspirin [Aspirin Low-Strength] 81 MG tablet,chewable 81 mg PO DAILY RF: 0 Oxygen EACH Inhalation IN THE DAYTIME Qty: 0.5 RF: 0 Oxygen EACH Inhalation NIGHTLY Qty: 1 RF: 0 Combivent Respimat 4 GM mist 1 puff Inhalation QID Qty: 3 RF: 3 omeprazole 20 MG capsule,delayed release(DR/EC) 20 mg PO DAILY Qty: 90 RF: 4 ipratropium-albuterol 0.5 mg-3 mg(2.5 mg base)/3 mL solution for nebulization 3 ml UPD QID Qty: 50 RF: 2 magnesium oxide 400 mg (241.3 mg magnesium) tablet 400 mg PO HS Qty: 90 RF: 4 Discharge Data Discharge Date/Time-TO BE ENTERED AT DEPARTURE: 05/16/18 17:38 Medical Decision Making 62-year-old male with a history of oxygen dependent COPD, not currently on steroids, presents with 3 days of cough, congestion, fever chills and production of sputum. He arrives to the emergency department with a room air sat of 87% and slightly increased respiratory rate. His exam is notable for diminished breath sounds with end expiratory wheezing. Differential diagnosis includes COPD exacerbation, pneumonia or influenza. Patient had IV access established, given MikeoNegina merrittraft,'s parenteral steroids, referred for chest x-ray, EKG, laboratory testing. Chest x-ray is clear without evidence of infiltrate. Influenza negative. CBC shows white count 10, unremarkable chemistries with normal troponin. Patient improved following beta agonist treatment. Most consistent with COPD exacerbation and bronchitis given his production of sputum. Placed on burst of steroids as well as oral antibiotic. Patient states he feels improved and wishes to be discharged home if you feel is appropriate. Discussed with him follow-up as well as return precautions to the ER Lab Data Lab results reviewed: Yes I reviewed the patient's lab results. Laboratory Results - last 24 hr 05/16/18 05/16/18 15:45 15:45 WBC 10.74 RBC 4.51 Hgb 14.4 Hct 42.8 MCV 94.9 MCH 31.9 MCHC 33.6 RDW 13.1 Plt Count 244 MPV 8.9 Immature Gran % 0.2 Neutrophils % 75.0 Lymphocytes % 11.7 Monocytes % 12.2 Eosinophils % 0.7 Basophils % 0.2 Absolute Neutrophils 8.05 H Absolute Lymphocytes 1.26 Absolute Monocytes 1.31 H Absolute Eosinophils 0.08 Absolute Basophils 0.02 Sodium 138 Potassium 3.9 Chloride 100 Carbon Dioxide 31.6 Anion Gap 6.4 BUN 15 Creatinine 1.06 Estimated GFR/1.73 m2 >= 60.00 Glucose 110 H Calcium 8.7 Magnesium 2.3 Total Bilirubin 0.9 AST 25 ALT 46 Alkaline Phosphatase 147 H Troponin I < 0.02 Total Protein 8.4 H Albumin 3.3 L ECG Data Attestation: I personally reviewed and interpreted this ECG (s) as follows: Interpretation: Sinus tachycardia, the rate is 103, the QRS is narrow, there is no ST segment elevation HPI General Mode of arrival: ambulatory . Date/Time Provider Initiated Documentation: 05/16/18 15:15 . Limitations to Documentation: no limitations . Information obtained by: patient . History of Present Illness 62 year old M presents to the emergency department with the chief complaint of 3 days of cough, congestion, production of green and yellow sputum, described as moderate, Quality is described as dull, and is localized to the chest. Patient reports no radiation. Patient started experiencing this day(s) and it has been constant. No relieving factors improve symptom(s), No exacerbating factors reported . Patient notes cough and fever/chills; denies chest pain. Patient did receive the following treatments prior to arrival, none Related Data Home Medications Medication Instructions Recorded Confirmed Oxygen l INHALATION IN THE DAYTIME #0.5 05/13/13 03/30/18 Oxygen l INHALATION NIGHTLY #1 05/13/13 03/30/18 aspirin [Aspirin Low-Strength] 81 mg PO DAILY tab-cap 05/13/13 03/30/18 Combivent Respimat 1 puff INHALATION QID #3 inhaler 08/08/17 03/30/18 omeprazole 20 mg PO DAILY #90 tab-cap 11/16/17 03/30/18 ipratropium-albuterol 0.5 mg-3 3 ml UPD QID #50 vial 02/25/18 03/30/18 mg(2.5 mg base)/3 mL nebulization soln magnesium oxide 400 mg (241.3 mg 400 mg PO HS #90 tab 03/01/18 03/30/18 magnesium) tablet albuterol sulfate HFA 90 2 puff INHALATION Q6H PRN #3 03/30/18 03/30/18 mcg/actuation aerosol inhaler inhaler fluticasone-salmeterol 115 mcg-21 2 puff INHALATION BID #3 inhaler 03/30/18 03/30/18 mcg/actuation HFA aerosol inhaler azithromycin 250 mg PO DAILY 4 Days #4 tab 05/16/18 prednisone 40 mg PO DAILY 5 Days #10 tab 05/16/18 Previous Rx's Medication Instructions Recorded Combivent Respimat 1 puff INHALATION QID #3 inhaler 08/08/17 omeprazole 20 mg PO DAILY #90 tab-cap 11/16/17 ipratropium-albuterol 0.5 mg-3 3 ml UPD QID #50 vial 02/25/18 mg(2.5 mg base)/3 mL nebulization soln magnesium oxide 400 mg (241.3 mg 400 mg PO HS #90 tab 03/01/18 magnesium) tablet albuterol sulfate HFA 90 2 puff INHALATION Q6H PRN #3 03/30/18 mcg/actuation aerosol inhaler inhaler fluticasone-salmeterol 115 mcg-21 2 puff INHALATION BID #3 inhaler 03/30/18 mcg/actuation HFA aerosol inhaler azithromycin 250 mg PO DAILY 4 Days #4 tab 05/16/18 prednisone 40 mg PO DAILY 5 Days #10 tab 05/16/18 Allergies Allergy/AdvReac Type Severity Reaction Status Date / Time Influenza Virus Vaccines Allergy Severe Unverified 05/16/18 15:46 pneumococcal vaccine Allergy Severe swells up Unverified 05/16/18 15:46 General Stated Complaint: SOB CIERRA: 2 Review of Systems Review of Systems 8 systems reviewed and otherwise neg FOR[facility]LY [facility], [facility] Medical History GERD (gastroesophageal reflux disease) (Chronic) COPD (chronic obstructive pulmonary disease) Malignant neoplasm of hypopharynx Pulmonary HTN Surgical History History of esophageal surgery (Inactive) Colonoscopy - MAC Status post laryngectomy Family History Mother Neoplasm Stroke Father Diabetes Heart disease Myocardial infarction Stroke Sister Neoplasm Brother Heart disease Asthma Grandfather No problems noted. Grandfather No problems noted. Grandmother Neoplasm Grandmother No problems noted. Brother No problems noted. Sister No problems noted. Sister No problems noted. Son No problems noted. Daughter No problems noted. Social History household members: other details: 2 current occupational status: disabled pets and animals: Yes pets and animals: dog(s) Smoking/Tobacco Use Status: Former Tobacco Use alcohol intake: never substance use type: does not use special eulogio needs: No Exam Narrative Exam Narrative: GEN: awake, alert, oriented 3. Pleasant, well groomed, interactive. HEAD: Normocephalic, atraumatic ENT: Mucous membranes moist, oropharynx unremarkable, External ear exam unremarkable. Tracheostomy healed EYES: PERRL, EOMI NECK: Full ROM, no KARNE, no menigismus CHEST/RESP: Nontender, diminished bilaterally with bilateral end expiratory wheeze and slight increased respiratory rate CARDIOVASCULAR: RRR, no murmur, rub deepak. 2+ Rad pulse bilateral ABDOMEN: Soft, nontender, no mass. +Bowel sounds EXT: Full ROM, no edema, no rash Neuro: Grossly normal neurologic exam, conversant, interactive. Psych: Speech fluent, thoughts congruent, affect normal Course Vital Signs Temperature 36.5 C 05/16/18 15:23 Pulse 109 H 05/16/18 15:23 Respiratory Rate 26 H 05/16/18 15:23 Blood Pressure 138/73 05/16/18 15:23 Pulse Oximetry 87 L 05/16/18 15:23 Temperature 36.5 C 05/16/18 15:23 Temperature Source Temporal Artery Scan 05/16/18 15:23 Pulse 109 H 05/16/18 15:23 Respiratory Rate 26 H 05/16/18 15:23 Blood Pressure 138/73 05/16/18 15:23 Blood Pressure Position Sitting 05/16/18 15:23 Pulse Oximetry 87 L 05/16/18 15:23 Oxygen Delivery Method Room Air 05/16/18 15:23 Oxygen Flow Rate 0 05/16/18 15:23 Pain Level 0 05/16/18 15:23
[2018-05-16] MEDS: methylPREDNISolone SUCC 125 MG VIAL IVP (15:43)
--- NOTE | 2018-05-16 16:01 | NUR.NOTE ---
patient to DI on 3lmp trach mask Nursing Note:
[2018-05-16 16:02] LABS: Abs Immature Grans 0.02 k/cumm (0.0-0.09); Absolute Basophil Count 0.02 k/cumm (0.0-0.2); Absolute Eosinophil Count 0.08 k/cumm (0.0-0.7); Absolute Lymphocyte Count 1.26 k/cumm (1.2-3.4); Absolute Monocyte Count 1.31 k/cumm (0.11-0.7); Absolute Neutrophil Count 8.05 k/cumm (1.2-6.7); Basophils % 0.2; Eosinophils % 0.7; HCT 42.8 % (40.0-50.0); HGB 14.4 g/dL (13.5-17.5); Immature Grans % 0.2; Lymphocytes % 11.7; Mean Corp. HGB Concentration 33.6 g/dL (32.0-36.0); Mean Corpuscular Hemoglobin 31.9 pg (27.0-33.0); Mean Corpuscular Volume 94.9 fL (80-95); Mean Platelet Volume 8.9 fL (8.0-11.0); Monocytes % 12.2; Platelet Count 244 x1000/uL (130-400); RBC 4.51 m/cumm (4.50-6.00); RBC Distribution Width 13.1 % (11.8-14.1); White Blood Cell Count 10.74 k/cumm (4.4-10.8)
[2018-05-16 16:13] LABS: ALT 46 U/L (12-78); AST 25 U/L (15-37); Albumin 3.3 g/dL (3.4-5.0); Alkaline Phosphatase 147 U/L (46-116); Anion Gap 6.4 mmol/L (3-11); BUN 15 mg/dL (7-18); Bilirubin, Total 0.9 mg/dL (0.2-1.0); CO2 31.6 mmol/L (21.0-32.0); CREATININE 1.06 mg/dL (0.70-1.30); Calcium 8.7 mg/dL (8.5-10.1); Chloride 100 mmol/L (98-107); Glucose 110 mg/dL (70-100); Magnesium 2.3 mg/dL (1.8-2.4); Potassium 3.9 mmol/L (3.5-5.1); Sodium 138 mmol/L (136-145); Total Protein 8.4 g/dL (6.4-8.2)
[2018-05-16 16:15] LABS: Troponin I < 0.02 ng/mL (0.00-0.06)
[2018-05-16 16:23] VITALS: BP 112/45; PULSE 90; RESP 24; TEMP 37.3; O2SAT 92
[2018-05-16 16:26] VITALS: BP 114/48; PULSE 91; RESP 18; O2SAT 95
[2018-05-16 17:18] VITALS: BP 132/74; PULSE 100; RESP 26; O2SAT 93
[2018-05-16] MEDS: Azithromycin 250 MG TAB 500 MG PO (17:22)
--- NOTE | 2018-05-16 17:23 | NUR.NOTE ---
patient medicated per MD order Nursing Note:
--- NOTE | 2018-05-16 17:48 | NUR.NOTE ---
IV dc'd Nursing Note:
== END 2018-05-16 17:38 | disposition home or self-care (01) ==
PROVIDERS: Emergency Provider Emergency Medicine; PCP Family Medicine
DX: J44.0 Chronic obstructive pulmonary disease with (acute) lower respiratory infection (principal); Z87.891 Personal history of nicotine dependence; Z99.81 Dependence on supplemental oxygen; J20.9 Acute bronchitis, unspecified; Z93.0 Tracheostomy status
CPT/HCPCS: 36415; 80053; 87449; 93005; 94640; 96374; 99285; 71046; 83735; 84484; 85025; 93010; J2930; J7620

== ENCOUNTER 2018-05-20 09:13 | Inpatient (IN) | payer MEDICAID, SELFPAY ==
[2018-05-20] VITALS (13 sets, daily range): BP systolic 128–155; BP diastolic 51–84; PULSE 76–95; RESP 1–35; TEMP 36.3–37; O2SAT 88–99
--- NOTE | 2018-05-20 09:23 | W.ED.GENAD ---
Discharge Plan Disposition Patient Disposition: [facility] INPATIENT Condition: Serious Discharge Details Chief Complaint: Abd Prob Clinical Impression: Cholecystitis, Pancreatitis, acute, Choledocholithiasis Reason For Visit: CHOLEDOCHOLITHIASIS, CHOLANGITIS Admit Date/Time: 05/20/18 13:29 Admit Provider: Tosin Collier Attending Provider: Tosin Collier Primary Care Provider: Wyatt Arnett ED Provider: Margaret Knight Discharge Data Discharge Date/Time-TO BE ENTERED AT DEPARTURE: 05/20/18 15:37 Medical Decision Making <Rajeev Stafford MD - Last Filed: 05/21/18 16:04> 9:28 --62-year-old male with history of COPD on azithromycin and prednisone, prior history of laryngeal mass, status post laryngectomy, ruptured esophagus in the past, here with severe abdominal pain. Tender diffusely with guarding. High concern for acute surgical pathology including AAA versus bowel versus ischemic colitis. Plan to give Dilaudid IV. IV fluid. Plan for stat CT abdomen pelvis. She is normotensive. He is tachypneic which I suspect is secondary to pain. 10:10 --labs reviewed and elevated lactate noted. CBC and chemistry pending. Care signed out to KEENA Knight with plan to follow-up on diagnostics and reassess patient. <KEENA Marino - Last Filed: 05/20/18 19:44> Care transitioned to myself by Dr. Stafford with imaging and labs pending. Patient presented with abdominal pain that began this AM with guarding and rebound tenderness. Labs reviewed by myself. White count is 18.3 neutrophil count of 16.14. Lactate is 2.5. AST is elevated to 71, ALT 124, alk phos 146. Lipase over 15,000 CT reviewed by radiologist: CT Chest: FINDINGS: Lungs: Mild nodular opacities in the right lower lobe, right middle lobe and right upper lobe most consistent with infectious process. 1.8 x 1.9 x 1.2 cm lobular dominant nodule/scar/pneumonia in the anterior segment right upper lobe. Followup according to the staff radiologist's final report. Mild right upper lobe paraseptal emphysema. Mild centrilobular emphysema. Pleural space: Normal. No pneumothorax. No pleural effusion. Heart: Mild calcified coronary artery disease. Aorta: Normal. No aortic aneurysm. Lymph nodes: Unremarkable. No enlarged lymph nodes. Bones/joints: Unremarkable. No acute fracture. Soft tissues: Unremarkable. IMPRESSION: 1. Mild nodular opacities in the right lower lobe, right middle lobe and right upper lobe most consistent with infectious process. 2. 1.8 x 1.9 x 1.2 cm lobular dominant nodule/scar/pneumonia in the anterior segment right upper lobe. Followup according to the staff radiologist's final report. 3. Mild right upper lobe paraseptal emphysema. 4. Mild centrilobular emphysema. Ct abdomen: FINDINGS: Lower thorax: Unremarkable. Liver: Normal. No mass. Gallbladder and bile ducts: Mild to moderate pericholecystic edema and/or fluid most consistent with cholecystitis. Dilated 10 mm common hepatic duct with no dilated intrahepatic biliary tree or dilated distal common bile duct. Possible small choledochocele. Pancreas: Normal. No ductal dilation. Spleen: Normal. No splenomegaly. Adrenals: Normal. No mass. Kidneys and ureters: Normal. No hydronephrosis. Stomach and bowel: Normal. No obstruction. No mucosal thickening. Intraperitoneal space: Unremarkable. No free air. No significant fluid collection. Bones/joints: Multilevel central spinal stenosis. Soft tissues: Unremarkable. Vasculature: 3.8 cm infrarenal abdominal aortic aneurysm without rupture. 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 Lymph nodes: Unremarkable. No enlarged lymph nodes. IMPRESSION: 1. Mild to moderate pericholecystic edema and/or fluid most consistent with cholecystitis. 2. 3.8 cm infrarenal abdominal aortic aneurysm without rupture. 3. 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 4. Dilated 10 mm common hepatic duct with no dilated intrahepatic biliary tree or dilated distal common bile duct. Possible small choledochocele. Consulted with Dr. Iyer regarding the patient. We discussed the patient's medical history current complaints and findings of the labs and imaging. She advised, particularly given the patient's history of laryngectomy, he is not appropriate for this facility . With his lipase level, she is concerned for common duct blockage and advised this patient will likely need ERCP. Ordered blood cultures. Patient is on abx for his pneumonia. Discussed findings and concerns at length with patient and his family. Patient was noted to have complete occlusion of the right common iliac artery. Patient reports that he has chronic coolness to his bilateral lower extremities. Denies any pain in lower extremities. Patient has faint palpable pulses bilaterally. Noted to have partial removal of left great toe, this was secondary to traumatic incident. No acute change in LE per patient report. He was unaware of aortic aneurysm. I did review previous imaging, he has never had abdominal imaging previously. However, on old CT of chest, it does include upper abdomen and superior aneurysm was noted. Consulted with [facility], this is where patient had esophagectomy. Images have been pushed, awaiting call back from GI. Consulted with Dr. Pichardo with GI. They reviewed the images and discussed laboratory evaluation. They advised patient will need an ERCP been unable to accommodate this today. They do not have beds time for admission. Advised that they will be able to go down tomorrow morning for ERCP, likely for a down and back trip. Patient will be given Zosyn we will continue to hydrate. As we also do not have any beds at this time, will reach out to other local facilities for admission for pancreatitis, cholecystitis and plan ERCP tomorrow at [facility]. Bed now available. Spoke with Dr. Iyer once again regarding patient. She advises that this patient is not appropriate for admission here even with plan for ERCP tomorrow. She is concerned that he will also need cholecyectomy and we will not be able to preform this here with patients history. ADvised that this would mean multiple trips for the patient for multiple procedures. Prefers for patient to be transferred to another facility with higher level of care. As [facility] is currently full, will consult with [facility] Images pushed to [facility]. Consulted with [facility]. Spoke with hospitalist Dr. Brandon and GI phsycian Dr. Doty. Reviewed labs, history and imaging findings. He advised that there is no need for an emergentintervention at this time. He did not advised immediate ERCP, advised that patient will first need supportive care with IV fluids and IV antibiotics. Unclear at thsi time if he will be a definiste surgical treatment. ADvised 24-48 hours of supportive care, continueing to follow LFTs for signs of retained stones and +/- ERCP based on this. [facility] does not have beds available at this time. As patient is not surgical at this time, needs supportive care, will consult with hospitalist. Spoke with Dr. Collier who advised that patient needs surgical intervention. She will contact [facility] herself and discuss this with them further. Dr. Collier contacted department, she agrees to admission at this time. HPI <Rajeev Stafford MD - Last Filed: 05/21/18 16:04> General Mode of arrival: ambulatory. Date/Time Provider Initiated Documentation: 05/20/18 09:16. Limitations to Documentation: no limitations. Information obtained by: patient. HPI Narrative: 62yo m with history of COPD, GERD, ruptured esophagus in the past, throat cancer, currently on azithromycin and prednisone, presents with chief complaint of abdominal pain. Pain started this morning a few hours ago and has persisted. Pain is severe. Pain localized to diffuse abdomen. No modifiers. He has no associated vomiting. Related Data Home Medications Medication Instructions Recorded Confirmed Oxygen l INHALATION IN THE DAYTIME #0.5 05/13/13 05/17/18 Oxygen l INHALATION NIGHTLY #1 05/13/13 05/17/18 aspirin [Aspirin Low-Strength] 81 mg PO DAILY tab-cap 05/13/13 05/17/18 omeprazole 20 mg PO DAILY #90 tab-cap 11/16/17 05/17/18 ipratropium-albuterol 0.5 mg-3 3 ml UPD QID #50 vial 02/25/18 05/17/18 mg(2.5 mg base)/3 mL nebulization soln magnesium oxide 400 mg (241.3 mg 400 mg PO HS #90 tab 03/01/18 05/17/18 magnesium) tablet albuterol sulfate HFA 90 2 puff INHALATION Q6H PRN #3 03/30/18 05/17/18 mcg/actuation aerosol inhaler inhaler fluticasone-salmeterol 115 mcg-21 2 puff INHALATION BID #3 inhaler 03/30/18 05/17/18 mcg/actuation HFA aerosol inhaler ipratropium bromide 17 1 puff IH QID #12.9 gm 05/18/18 05/18/18 mcg/actuation HFA aerosol inhaler levofloxacin 500 mg tablet 500 mg PO DAILY #10 tab 05/18/18 05/18/18 Previous Rx's Medication Instructions Recorded omeprazole 20 mg PO DAILY #90 tab-cap 11/16/17 ipratropium-albuterol 0.5 mg-3 3 ml UPD QID #50 vial 02/25/18 mg(2.5 mg base)/3 mL nebulization soln magnesium oxide 400 mg (241.3 mg 400 mg PO HS #90 tab 03/01/18 magnesium) tablet albuterol sulfate HFA 90 2 puff INHALATION Q6H PRN #3 03/30/18 mcg/actuation aerosol inhaler inhaler fluticasone-salmeterol 115 mcg-21 2 puff INHALATION BID #3 inhaler 03/30/18 mcg/actuation HFA aerosol inhaler ipratropium bromide 17 1 puff IH QID #12.9 gm 05/18/18 mcg/actuation HFA aerosol inhaler levofloxacin 500 mg tablet 500 mg PO DAILY #10 tab 05/18/18 Allergies Allergy/AdvReac Type Severity Reaction Status Date / Time Influenza Virus Vaccines Allergy Severe Unverified 05/17/18 13:56 pneumococcal vaccine Allergy Severe swells up Unverified 05/17/18 13:56 General CIERRA: 2 Review of Systems <Rajeev Stafford MD - Last Filed: 05/21/18 16:04> Review of Systems All systems reviewed & are unremarkable except as noted in HPI and below PFSH <Rajeev Stafford MD - Last Filed: 05/21/18 16:04> Medical History GERD (gastroesophageal reflux disease) (Chronic) COPD (chronic obstructive pulmonary disease) Malignant neoplasm of hypopharynx Pulmonary HTN Surgical History History of esophageal surgery (Inactive) Colonoscopy - MAC Status post laryngectomy Family History Mother Neoplasm Stroke Father Diabetes Heart disease Myocardial infarction Stroke Sister Neoplasm Brother Heart disease Asthma Grandfather No problems noted. Grandfather No problems noted. Grandmother Neoplasm Grandmother No problems noted. Brother No problems noted. Sister No problems noted. Sister No problems noted. Son No problems noted. Daughter No problems noted. Social History household members: other details: 2 current occupational status: disabled pets and animals: Yes pets and animals: dog(s) Smoking/Tobacco Use Status: Former Tobacco Use alcohol intake: never substance use type: does not use special eulogio needs: No Exam <Rajeev Stafford MD - Last Filed: 05/21/18 16:04> Const General: cooperative and uncomfortable Orientation: alert and awake HENMT Head: normocephalic and atraumatic Mouth: moist mucous membranes Eyes Conjunctivae: normal conjunctivae Sclera: normal sclerae EOM: EOM intact bilaterally Neck Neck: supple Other: Status post laryngectomy Resp Auscultation: clear to auscultation bilaterally, no rales, no rhonchi and no wheezes Cardio Jugular venous pressure: no JVD Rate: tachycardic Rhythm: regular rhythm GI Palpation: soft, not firm, guarding, no masses, not rigid and tender (Diffuse) Skin General skin exam: no rashes or lesions noted Neuro General: alert, awake, oriented x3 and tone normal Extrem General: no edema Psych Appearance: grossly normal Mental Status: mental status grossly normal Speech and Movement: speech and movement normal Sign Out <Rajeev Stafford MD - Last Filed: 05/21/18 16:04> Sign Out Data: Sign Out Comment: Follow-up on diagnostics and reassess patient for disposition. CT and labs pending. Last updated by Rajeev Stafford MD at 05/20/18 10:15
--- NOTE | 2018-05-20 09:30 | ED.GENADUL_ITS ---
Discharge Plan Disposition Patient Disposition: [facility] INPATIENT Condition: Serious Discharge Details Chief Complaint: Abd Prob Clinical Impression: Cholecystitis, Pancreatitis, acute, Choledocholithiasis Reason For Visit: CHOLEDOCHOLITHIASIS, CHOLANGITIS Admit Date/Time: 05/20/18 13:29 Admit Provider: Tosin Collier Attending Provider: Tosin Collier Primary Care Provider: Wyatt Arnett ED Provider: Margaret Knight Discharge Data Discharge Date/Time-TO BE ENTERED AT DEPARTURE: 05/20/18 15:37 Medical Decision Making <Rajeev Stafford MD - Last Filed: 05/21/18 16:04> 9:28 --62-year-old male with history of COPD on azithromycin and prednisone, prior history of laryngeal mass, status post laryngectomy, ruptured esophagus in the past, here with severe abdominal pain. Tender diffusely with guarding. High concern for acute surgical pathology including AAA versus bowel versus ischemic colitis. Plan to give Dilaudid IV. IV fluid. Plan for stat CT abdomen pelvis. She is normotensive. He is tachypneic which I suspect is secondary to pain. 10:10 --labs reviewed and elevated lactate noted. CBC and chemistry pending. Care signed out to KEENA Knight with plan to follow-up on diagnostics and reassess patient. <KEENA Marino - Last Filed: 05/20/18 19:44> Care transitioned to myself by Dr. Stafford with imaging and labs pending. Patient presented with abdominal pain that began this AM with guarding and rebound tenderness. Labs reviewed by myself. White count is 18.3 neutrophil count of 16.14. Lactate is 2.5. AST is elevated to 71, ALT 124, alk phos 146. Lipase over 15,000 CT reviewed by radiologist: CT Chest: FINDINGS: Lungs: Mild nodular opacities in the right lower lobe, right middle lobe and right upper lobe most consistent with infectious process. 1.8 x 1.9 x 1.2 cm lobular dominant nodule/scar/pneumonia in the anterior segment right upper lobe. Followup according to the staff radiologist's final report. Mild right upper lobe paraseptal emphysema. Mild centrilobular emphysema. Pleural space: Normal. No pneumothorax. No pleural effusion. Heart: Mild calcified coronary artery disease. Aorta: Normal. No aortic aneurysm. Lymph nodes: Unremarkable. No enlarged lymph nodes. Bones/joints: Unremarkable. No acute fracture. Soft tissues: Unremarkable. IMPRESSION: 1. Mild nodular opacities in the right lower lobe, right middle lobe and right upper lobe most consistent with infectious process. 2. 1.8 x 1.9 x 1.2 cm lobular dominant nodule/scar/pneumonia in the anterior segment right upper lobe. Followup according to the staff radiologist's final report. 3. Mild right upper lobe paraseptal emphysema. 4. Mild centrilobular emphysema. Ct abdomen: FINDINGS: Lower thorax: Unremarkable. Liver: Normal. No mass. Gallbladder and bile ducts: Mild to moderate pericholecystic edema and/or fluid most consistent with cholecystitis. Dilated 10 mm common hepatic duct with no dilated intrahepatic biliary tree or dilated distal common bile duct. Possible small choledochocele. Pancreas: Normal. No ductal dilation. Spleen: Normal. No splenomegaly. Adrenals: Normal. No mass. Kidneys and ureters: Normal. No hydronephrosis. Stomach and bowel: Normal. No obstruction. No mucosal thickening. Intraperitoneal space: Unremarkable. No free air. No significant fluid collection. Bones/joints: Multilevel central spinal stenosis. Soft tissues: Unremarkable. Vasculature: 3.8 cm infrarenal abdominal aortic aneurysm without rupture. 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 Lymph nodes: Unremarkable. No enlarged lymph nodes. IMPRESSION: 1. Mild to moderate pericholecystic edema and/or fluid most consistent with cholecystitis. 2. 3.8 cm infrarenal abdominal aortic aneurysm without rupture. 3. 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 4. Dilated 10 mm common hepatic duct with no dilated intrahepatic biliary tree or dilated distal common bile duct. Possible small choledochocele. Consulted with Dr. Iyer regarding the patient. We discussed the patient's medical history current complaints and findings of the labs and imaging. She advised, particularly given the patient's history of laryngectomy, he is not appropriate for this facility . With his lipase level, she is concerned for common duct blockage and advised this patient will likely need ERCP. Ordered blood cultures. Patient is on abx for his pneumonia. Discussed findings and concerns at length with patient and his family. Patient was noted to have complete occlusion of the right common iliac artery. Patient reports that he has chronic coolness to his bilateral lower extremities. Denies any pain in lower extremities. Patient has faint palpable pulses bilaterally. Noted to have partial removal of left great toe, this was secondary to traumatic incident. No acute change in LE per patient report. He was unaware of aortic aneurysm. I did review previous imaging, he has never had abdominal imaging previously. However, on old CT of chest, it does include upper abdomen and superior aneurysm was noted. Consulted with [facility], this is where patient had esophagectomy. Images have been pushed, awaiting call back from GI. Consulted with Dr. Pichardo with GI. They reviewed the images and discussed laboratory evaluation. They advised patient will need an ERCP been unable to accommodate this today. They do not have beds time for admission. Advised that they will be able to go down tomorrow morning for ERCP, likely for a down and back trip. Patient will be given Zosyn we will continue to hydrate. As we also do not have any beds at this time, will reach out to other local facilities for admission for pancreatitis, cholecystitis and plan ERCP tomorrow at [facility]. Bed now available. Spoke with Dr. Iyer once again regarding patient. She advises that this patient is not appropriate for admission here even with plan for ERCP tomorrow. She is concerned that he will also need cholecyectomy and we will not be able to preform this here with patients history. ADvised that this would mean multiple trips for the patient for multiple procedures. Prefers for patient to be transferred to another facility with higher level of care. As [facility] is currently full, will consult with [facility]. Images pushed to [facility]. Consulted with [facility]. Spoke with hospitalist Dr. Brandon and GI phsycian Dr. Doty. Reviewed labs, history and imaging findings. He advised that there is no need for an emergentintervention at this time. He did not advised immediate ERCP, advised that patient will first need supportive care with IV flu ids and IV antibiotics. Unclear at thsi time if he will be a definiste surgical treatment. ADvised 24-48 hours of supportive care, continueing to follow LFTs for signs of retained stones and +/- ERCP based on this. [facility] does not have beds available at this time. As patient is not surgical at this time, needs supportive care, will consult with hospitalist. Spoke with Dr. Collier who advised that patient needs surgical intervention. She will contact [facility] herself and discuss this with them further. Dr. Nando contacted department, she agrees to admission at this time. HPI <Rajeev Stafford MD - Last Filed: 05/21/18 16:04> General Mode of arrival: ambulatory . Date/Time Provider Initiated Documentation: 05/20/18 09:16 . Limitations to Documentation: no limitations . Information obtained by: patient . HPI Narrative: 62yo m with history of COPD, GERD, ruptured esophagus in the past, throat cancer, currently on azithromycin and prednisone, presents with chief complaint of abdominal pain. Pain started this morning a few hours ago and has persisted. Pain is severe. Pain localized to diffuse abdomen. No modifiers. He has no associated vomiting. Related Data Home Medications Medication Instructions Recorded Confirmed Oxygen l INHALATION IN THE DAYTIME #0.5 05/13/13 05/17/18 Oxygen l INHALATION NIGHTLY #1 05/13/13 05/17/18 aspirin [Aspirin Low-Strength] 81 mg PO DAILY tab-cap 05/13/13 05/17/18 omeprazole 20 mg PO DAILY #90 tab-cap 11/16/17 05/17/18 ipratropium-albuterol 0.5 mg-3 3 ml UPD QID #50 vial 02/25/18 05/17/18 mg(2.5 mg base)/3 mL nebulization soln magnesium oxide 400 mg (241.3 mg 400 mg PO HS #90 tab 03/01/18 05/17/18 magnesium) tablet albuterol sulfate HFA 90 2 puff INHALATION Q6H PRN #3 03/30/18 05/17/18 mcg/actuation aerosol inhaler inhaler fluticasone-salmeterol 115 mcg-21 2 puff INHALATION BID #3 inhaler 03/30/18 05/17/18 mcg/actuation HFA aerosol inhaler ipratropium bromide 17 1 puff IH QID #12.9 gm 05/18/18 05/18/18 mcg/actuation HFA aerosol inhaler levofloxacin 500 mg tablet 500 mg PO DAILY #10 tab 05/18/18 05/18/18 Previous Rx's Medication Instructions Recorded omeprazole 20 mg PO DAILY #90 tab-cap 11/16/17 ipratropium-albuterol 0.5 mg-3 3 ml UPD QID #50 vial 02/25/18 mg(2.5 mg base)/3 mL nebulization soln magnesium oxide 400 mg (241.3 mg 400 mg PO HS #90 tab 03/01/18 magnesium) tablet albuterol sulfate HFA 90 2 puff INHALATION Q6H PRN #3 03/30/18 mcg/actuation aerosol inhaler inhaler fluticasone-salmeterol 115 mcg-21 2 puff INHALATION BID #3 inhaler 03/30/18 mcg/actuation HFA aerosol inhaler ipratropium bromide 17 1 puff IH QID #12.9 gm 05/18/18 mcg/actuation HFA aerosol inhaler levofloxacin 500 mg tablet 500 mg PO DAILY #10 tab 05/18/18 Allergies Allergy/AdvReac Type Severity Reaction Status Date / Time Influenza Virus Vaccines Allergy Severe Unverified 05/17/18 13:56 pneumococcal vaccine Allergy Severe swells up Unverified 05/17/18 13:56 General CIERRA: 2 Review of Systems <Rajeev Stafford MD - Last Filed: 05/21/18 16:04> Review of Systems All systems reviewed & are unremarkable except as noted in HPI and below PFSH <Rajeev Stafford MD - Last Filed: 05/21/18 16:04> Medical History GERD (gastroesophageal reflux disease) (Chronic) COPD (chronic obstructive pulmonary disease) Malignant neoplasm of hypopharynx Pulmonary HTN Surgical History History of esophageal surgery (Inactive) Colonoscopy - MAC Status post laryngectomy Family History Mother Neoplasm Stroke Father Diabetes Heart disease Myocardial infarction Stroke Sister Neoplasm Brother Heart disease Asthma Grandfather No problems noted. Grandfather No problems noted. Grandmother Neoplasm Grandmother No problems noted. Brother No problems noted. Sister No problems noted. Sister No problems noted. Son No problems noted. Daughter No problems noted. Social History household members: other details: 2 current occupational status: disabled pets and animals: Yes pets and animals: dog(s) Smoking/Tobacco Use Status: Former Tobacco Use alcohol intake: never substance use type: does not use special eulogio needs: No Exam <Rajeev Stafford MD - Last Filed: 05/21/18 16:04> Const General: cooperative and uncomfortable Orientation: alert and awake HENMT Head: normocephalic and atraumatic Mouth: moist mucous membranes Eyes Conjunctivae: normal conjunctivae Sclera: normal sclerae EOM: EOM intact bilaterally Neck Neck: supple Other: Status post laryngectomy Resp Auscultation: clear to auscultation bilaterally, no rales, no rhonchi and no wheezes Cardio Jugular venous pressure: no JVD Rate: tachycardic Rhythm: regular rhythm GI Palpation: soft, not firm, guarding, no masses, not rigid and tender (Diffuse) Skin General skin exam: no rashes or lesions noted Neuro General: alert, awake, oriented x3 and tone normal Extrem General: no edema Psych Appearance: grossly normal Mental Status: mental status grossly normal Speech and Movement: speech and movement normal Sign Out <Rajeev Stafford MD - Last Filed: 05/21/18 16:04> Sign Out Data: Sign Out Comment: Follow-up on diagnostics and reassess patient for disposition. CT and labs pending. Last updated by Rajeev Stafford MD at 05/20/18 10:15
[2018-05-20] MEDS: HYDROmorphone 2 MG/ML VIAL 1 MG IVP (09:40)
[2018-05-20] MEDS: Lactated Ringers 1,000 ML 125 ML IV ×2 (09:40→15:43)
[2018-05-20 09:48] LABS: Abs Immature Grans 0.38 k/cumm (0.0-0.09); HCT 45.3 % (40.0-50.0); HGB 15.1 g/dL (13.5-17.5); Mean Corp. HGB Concentration 33.3 g/dL (32.0-36.0); Mean Corpuscular Hemoglobin 31.7 pg (27.0-33.0); Mean Platelet Volume 8.8 fL (8.0-11.0); Platelet Count 311 x1000/uL (130-400); RBC 4.77 m/cumm (4.50-6.00); RBC Distribution Width 12.8 % (11.8-14.1); White Blood Cell Count 18.34 k/cumm (4.4-10.8)
[2018-05-20 09:56] LABS: Lactate 2.5 mmol/L (0.6-1.4)
[2018-05-20 09:58] LABS: Prothrombin Time 10.4 sec (9.3-11.0)
[2018-05-20] MEDS: Omnipaque 350 MG/ML 100 ML BTL IJ (10:03)
[2018-05-20 10:07] LABS: ALT 124 U/L (12-78); AST 271 U/L (15-37); Albumin 3.4 g/dL (3.4-5.0); Alkaline Phosphatase 146 U/L (46-116); BUN 16 mg/dL (7-18); Bilirubin, Total 1.3 mg/dL (0.2-1.0); CREATININE 1.07 mg/dL (0.70-1.30); Calcium 8.7 mg/dL (8.5-10.1); Chloride 100 mmol/L (98-107); Glucose 181 mg/dL (70-100); Magnesium 2.3 mg/dL (1.8-2.4); Potassium 4.6 mmol/L (3.5-5.1); Sodium 140 mmol/L (136-145); Total Protein 8.1 g/dL (6.4-8.2)
--- NOTE | 2018-05-20 10:11 | DI.CT_ITS ---
SYMPTOMS/DIAGNOSIS: SEVERE ABD PAIN CT SCAN OF THE CHEST AND ABDOMEN: Comparison is 07/09/17. CT SCAN OF THE ABDOMEN: No discrete hepatic mass is seen. There are a few tiny hypodensities in the liver. They are too small for further characterization but might reflect small cyst. The portal and superior mesenteric veins are patent. There is diffuse decreased attenuation of the liver suggesting hepatic steatosis. The gallbladder shows pericholecystic fluid. The common hepatic duct measures 1 cm. No choledocholithiasis is seen. The pancreas and peripancreatic soft tissues are unremarkable as are the spleen and adrenal glands. The kidneys show no evidence of symmetric enhancement. No solid renal mass or obstruction is present. There is a 3.8 cm infrarenal abdominal aortic aneurysm. No significant abdominal ascites, adenopathy or pneumoperitoneum is seen. The bowel is grossly unremarkable. Degenerative changes are seen in the spine. There is diffuse decreased attenuation seen in the right common iliac artery suspicious for complete occlusion. IMPRESSION: 1. Mild pericholecystic fluid raising the question of acute cholecystitis. Sonographic correlation should be considered. 2. 3.8 cm infrarenal abdominal aortic aneurysm. 3. 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 4. Dilated common hepatic duct up to 1.[address] SCAN OF THE CHEST: There is atherosclerosis of the abdominal aorta but no aneurysmal dilatation is seen. The heart size is within normal limits. Coronary artery calcifications are present. No evidence of thoracic adenopathy is seen. No pleural effusion or pneumothorax is identified. Central lobular emphysematous changes are present in the lungs. Small nodular opacities are seen in the right upper lobe, right middle lobe and right lower lobe suspicious for an infection. There is a 1.8 x 1.9 x 1.2 cm irregular opacity in the anterior aspect of the right upper lobe. This was not present on prior examinations. There is also a 1 cm nodule in the right lung base posteriorly. This was not seen on prior examinations. IMPRESSION: 1. Nodular opacities seen in the right upper, right middle and right lower lobes suspicious for infectious process. 2. Right pulmonary nodules, the largest is in the right upper lobe. These are new compared to prior examinations. The most recent being 07/09/17. Mass/metastatic disease can not be excluded. Rounded atelectasis or pneumonia should also be considered. Follow up is recommended in this patient to exclude a solid mass. A repeat CT may be considered for re-evaluation. 3. Emphysema.
[2018-05-20 10:12] LABS: Absolute Neutrophil Count 16.14 k/cumm (1.2-6.7)
[2018-05-20 10:13] LABS: Atypical Lymphocytes % 3
[2018-05-20 10:14] LABS: Diff Comment Manual Differential; RBC Morphology Normal
[2018-05-20 10:16] LABS: Troponin I < 0.02 ng/mL (0.00-0.06)
[2018-05-20 10:36] LABS: Lipase > 15000 U/L (73-393)
--- NOTE | 2018-05-20 10:37 | DI.VRAD_ITS ---
Addendum created by Jarad Alberts MD on 05/20/2018 10:47:19 AM EST History: Diffuse abdominal pain, elevated serum lipase, no previous imaging of the right common iliac artery. THIS REPORT CONTAINS FINDINGS THAT MAY BE CRITICAL TO PATIENT CARE. The findings were verbally communicated via telephone conference with KEENA Marino at 10:46 AM EST on 05/20/2018. The findings were acknowledged and understood. Initial report created on 05/20/2018 10:37:03 AM EST EXAM: CT Chest With Contrast EXAM DATE/TIME: 05/20/2018 9:33 AM CLINICAL HISTORY: 62 years old, male; Signs and symptoms; Other: Severe abdominal pain; Patient HX: Severe abdomen pain TECHNIQUE: Axial computed tomography images of the chest with intravenous contrast. All CT scans at this facility use at least one of these dose optimization techniques: automated exposure control; mA and/or kV adjustment per patient size (includes targeted exams where dose is matched to clinical indication); or iterative reconstruction. Coronal and sagittal reformatted images were created and reviewed. CONTRAST: 100 ml of OMNI-PAQUE 350 administered intravenously. COMPARISON: No relevant prior studies available. FINDINGS: Lungs: Mild nodular opacities in the right lower lobe, right middle lobe and right upper lobe most consistent with infectious process. 1.8 x 1.9 x 1.2 cm lobular dominant nodule/scar/pneumonia in the anterior segment right upper lobe. Followup according to the staff radiologist's final report. Mild right upper lobe paraseptal emphysema. Mild centrilobular emphysema. Pleural space: Normal. No pneumothorax. No pleural effusion. Heart: Mild calcified coronary artery disease. Aorta: Normal. No aortic aneurysm. Lymph nodes: Unremarkable. No enlarged lymph nodes. Bones/joints: Unremarkable. No acute fracture. Soft tissues: Unremarkable. IMPRESSION: 1. Mild nodular opacities in the right lower lobe, right middle lobe and right upper lobe most consistent with infectious process. 2. 1.8 x 1.9 x 1.2 cm lobular dominant nodule/scar/pneumonia in the anterior segment right upper lobe. Followup according to the staff radiologist's final report. 3. Mild right upper lobe paraseptal emphysema. 4. Mild centrilobular emphysema. EXAM: CT Abdomen With Contrast EXAM DATE/TIME: 05/20/2018 9:33 AM CLINICAL HISTORY: 62 years old, male; Signs and symptoms; Other: Severe abdominal pain; Patient HX: Severe abdomen pain TECHNIQUE: Axial computed tomography images of the abdomen with intravenous contrast. All CT scans at this facility use at least one of these dose optimization techniques: automated exposure control; mA and/or kV adjustment per patient size (includes targeted exams where dose is matched to clinical indication); or iterative reconstruction. Coronal and sagittal reformatted images were created and reviewed. CONTRAST: 100 ml of OMNI-PAQUE 350 administered intravenously. COMPARISON: No relevant prior studies available. FINDINGS: Lower thorax: Unremarkable. Liver: Normal. No mass. Gallbladder and bile ducts: Mild to moderate pericholecystic edema and/or fluid most consistent with cholecystitis. Dilated 10 mm common hepatic duct with no dilated intrahepatic biliary tree or dilated distal common bile duct. Possible small choledochocele. Pancreas: Normal. No ductal dilation. Spleen: Normal. No splenomegaly. Adrenals: Normal. No mass. Kidneys and ureters: Normal. No hydronephrosis. Stomach and bowel: Normal. No obstruction. No mucosal thickening. Intraperitoneal space: Unremarkable. No free air. No significant fluid collection. Bones/joints: Multilevel central spinal stenosis. Soft tissues: Unremarkable. Vasculature: 3.8 cm infrarenal abdominal aortic aneurysm without rupture. 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 Lymph nodes: Unremarkable. No enlarged lymph nodes. IMPRESSION: 1. Mild to moderate pericholecystic edema and/or fluid most consistent with cholecystitis. 2. 3.8 cm infrarenal abdominal aortic aneurysm without rupture. 3. 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 4. Dilated 10 mm common hepatic duct with no dilated intrahepatic biliary tree or dilated distal common bile duct. Possible small choledochocele. Dictated and Authenticated by: Jarad Alberts MD. Ordering:BC Boo MD
--- NOTE | 2018-05-20 10:52 | NUR.NOTE ---
Nursing Note: Pt awake and alert, reports abdomen pain is improved after dilaudid. IVF infusing. 98% oxygen via trach mask at 28% humidified oxygen. son in room. sitting at edge of bed. plan for ERCP.
[2018-05-20] MEDS: Lactated Ringers 1,000 ML 1000 ML IV (12:26)
[2018-05-20] MEDS: PIPERACILLIN/TAZO 3.375 GM in Normal Saline 50 ML IVPB ×3 (12:27→23:49)
--- NOTE | 2018-05-20 14:26 | NUR.NOTE ---
Nursing Note: Pt sleeping in bed, awaiting call from med surg for report/bed placement. will continue to monitor. no acute changes
[2018-05-20 15:23] LABS: Lactate-non-spesis 2.1 mmol/L (0.6-1.4)
[2018-05-20] MEDS: Normal Saline Flush 10 ML SYR IVP (15:44)
--- NOTE | 2018-05-20 16:31 | W.PM.HP.N ---
Date of service: 05/20/18 Time of Service: 16:31 Assessment and Plan (1) Choledocholithiasis: Current visit: Yes Status: Acute ideally should go for timely ERCP, case was discussed with GI at [facility] and they have no beds available. Inpatient surgical consult, Dr Iyer who agrees with admission plan while awaiting procedure will admit to med/surg, NPO, IV fluids, pain management, and zosyn. plan for outpatient ERCP tomorrow at [facility]. repeat labs in am. lactate remains slightly elevated at 2.1 after fluid resuscitation in the ED, due to repeat at 2100, Is also in setting of acute CAP with COPD exacerbation, white count elevated at 18 but patient is currently taking a steroid burst. (2) Community acquired pneumonia: Current visit: Yes Status: Acute His symptoms improved with current treatment, it was abdominal pain that brought him to the eD today. He has completed 5 days of azithromycin today, needs one more dose of steroids tomorrow to complete a 5 day burst. Zosyn added for choledocholithiasis, day 1, should be adequate coverage for CAP. schedule duoneb, albuterol as needed. mucinex. lactate remains slightly elevated at 2.1, continue receiving IV fluids, repeat lactate at 2100. blood cultures pending. oxygen to maintain sats above 92%. (3) COPD with acute exacerbation: Current visit: Yes Status: Acute Patient reports respiratory status improved on current regimen. continue steroid burst due to be completed tomorrow, duonebs scheduled, and albuterol as needed. continue oxygen. (4) Status post laryngectomy: Current visit: No Status: Acute stable with chronic trach (5) Primary pulmonary hypertension: Current visit: No Status: Acute chronic, continue oxygen continuously (6) GERD (gastroesophageal reflux disease): Current visit: No Status: Chronic stable, pantoprazole daily (7) Discharge planning issues: Current visit: No Status: Acute will likely be discharged to home with no services once medically stable. (8) DVT prophylaxis: Current visit: No Status: Acute heparin subcutaneous. TEDS and SCD's (9) Insomnia: Current visit: Yes Status: Acute has not slept in past 4 nights d/t respiratory illness, can have melatonin and ambien if needed. History of Present Illness Chief Complaint: abdominal pain Narrative: 62yo m with history of COPD, GERD, ruptured esophagus in the past, throat cancer, currently on azithromycin and prednisone for COPD exacerbation, presents to the emergency department with chief complaint of abdominal pain. Pain started this morning a few hours ago and has persisted. Pain is severe. Pain localized to diffuse abdomen. No modifiers. He has no associated vomiting. Work up in the emergency department concerning for choledocholithiasis. Phone consult with [facility] GI is recommendation for admission here on IV antibiotics, IV fluids, pain management. He will be admitted to hospitalist services with surgical consult. Plan for outpatient ERCP tomorrow at [facility], transfer sooner for deterioration. Review of Systems Review of Systems All systems reviewed & are unremarkable except as noted in HPI and below Constitutional Reports difficulty sleeping (last 4 nights) ENT Denies dizziness Cardiovascular Denies chest pain and Denies syncope Respiratory Reports cough Gastrointestinal Reports abdominal pain (epigastric) Neurologic Denies dizziness and Denies syncope [facility] Medical History GERD (gastroesophageal reflux disease) (Chronic) COPD (chronic obstructive pulmonary disease) Malignant neoplasm of hypopharynx Pulmonary HTN Surgical History History of esophageal surgery (Inactive) Colonoscopy - MAC Status post laryngectomy Family History Mother Neoplasm Stroke Father Diabetes Heart disease Myocardial infarction Stroke Sister Neoplasm Brother Heart disease Asthma Grandfather No problems noted. Grandfather No problems noted. Grandmother Neoplasm Grandmother No problems noted. Brother No problems noted. Sister No problems noted. Sister No problems noted. Son No problems noted. Daughter No problems noted. Social History household members: other details: 2 current occupational status: disabled pets and animals: Yes pets and animals: dog(s) Smoking/Tobacco Use Status: Former Tobacco Use alcohol intake: never substance use type: does not use special eulogio needs: No Meds Home Medications Medication Instructions Recorded Confirmed Type Oxygen l INHALATION IN THE DAYTIME #0.5 05/13/13 05/17/18 History Oxygen l INHALATION NIGHTLY #1 05/13/13 05/17/18 History aspirin [Aspirin Low-Strength] 81 mg PO DAILY tab-cap 05/13/13 05/17/18 History omeprazole 20 mg PO DAILY #90 tab-cap 11/16/17 05/17/18 Rx ipratropium-albuterol 0.5 mg-3 3 ml UPD QID #50 vial 02/25/18 05/17/18 Rx mg(2.5 mg base)/3 mL nebulization soln magnesium oxide 400 mg (241.3 mg 400 mg PO HS #90 tab 03/01/18 05/17/18 Rx magnesium) tablet albuterol sulfate HFA 90 2 puff INHALATION Q6H PRN #3 03/30/18 05/17/18 Rx mcg/actuation aerosol inhaler inhaler fluticasone-salmeterol 115 mcg-21 2 puff INHALATION BID #3 inhaler 03/30/18 05/17/18 Rx mcg/actuation HFA aerosol inhaler prednisone 40 mg PO DAILY 5 Days #10 tab 05/16/18 05/17/18 Rx ipratropium bromide 17 1 puff IH QID #12.9 gm 05/18/18 05/18/18 Rx mcg/actuation HFA aerosol inhaler levofloxacin 500 mg tablet 500 mg PO DAILY #10 tab 05/18/18 05/18/18 Rx Allergies Allergy/AdvReac Type Severity Reaction Status Date / Time Influenza Virus Vaccines Allergy Severe Unverified 05/17/18 13:56 pneumococcal vaccine Allergy Severe swells up Unverified 05/17/18 13:56 Exam Chest Chest: normal inspection of the chest Resp Effort & Inspection: normal respiratory effort Auscultation: diminished lung sounds bilaterally throughout, rhonchi (scattered coarse) and wheezes (scattered) Cardio Rate: regular rate Rhythm: regular rhythm GI Inspection: distended Palpation: firm and tender in the epigastrum, in the LUQ and in the RUQ Auscultation: normal bowel sounds Skin General skin exam: no rashes or lesions noted and other (trach intact) Neuro General: alert and oriented x3 Cranial Nerves: CN's II-XI intact bilaterally Extrem General: normal to inspection and full ROM Psych Appearance: grossly normal Mood: congruent mood Affect: normal affect Attitude: cooperative Thought Process: normal Results Labs : 05/20/18 09:30 05/20/18 09:30 Laboratory Results - last 24 hr 05/20/18 05/20/18 05/20/18 09:30 09:30 09:30 WBC RBC Hgb Hct MCV MCH MCHC RDW Plt Count MPV Immature Gran % Neutrophils % Lymphocytes % Monocytes % Eosinophils % Basophils % Absolute Neutrophils Band Neutrophils Absolute Lymphocytes Absolute Monocytes Absolute Eosinophils Absolute Basophils Differential Comment Atypical Lymphocytes RBC Morphology PT 10.4 INR 1.0 Sodium Potassium Chloride Carbon Dioxide Anion Gap BUN Creatinine Estimated GFR/1.73 m2 Glucose Lactate 2.5 H* Calcium Magnesium Total Bilirubin AST ALT Alkaline Phosphatase Troponin I Total Protein Albumin Lipase > 87719 H Patient ABO/Rh O Negative Antibody Screen Negative 05/20/18 05/20/18 05/20/18 09:30 09:30 15:00 WBC 18.34 H RBC 4.77 Hgb 15.1 Hct 45.3 MCV 95.0 MCH 31.7 MCHC 33.3 RDW 12.8 Plt Count 311 MPV 8.8 Immature Gran % See Differential Neutrophils % 84.0 Lymphocytes % 3.0 Monocytes % 6.0 Eosinophils % 0.0 Basophils % 0.0 Absolute Neutrophils 16.14 H Band Neutrophils 4.0 Absolute Lymphocytes 1.10 L Absolute Monocytes 1.10 H Absolute Eosinophils 0.00 Absolute Basophils 0.00 Differential Comment Manual differential Atypical Lymphocytes 3 RBC Morphology Normal PT INR Sodium 140 Potassium 4.6 Chloride 100 Carbon Dioxide 34.0 H Anion Gap 6.0 BUN 16 Creatinine 1.07 Estimated GFR/1.73 m2 >= 60.00 Glucose 181 H Lactate 2.1 H Calcium 8.7 Magnesium 2.3 Total Bilirubin 1.3 H AST 271 H ALT 124 H Alkaline Phosphatase 146 H Troponin I < 0.02 Total Protein 8.1 Albumin 3.4 Lipase Patient ABO/Rh Antibody Screen Last Vital Signs Temp 36.5 C 05/20/18 15:47 Pulse 84 05/20/18 15:47 Resp 32 H 05/20/18 15:47 BP 132/84 05/20/18 15:47 Pulse Ox 96 05/20/18 14:26
--- NOTE | 2018-05-20 16:37 | HPE_ITS ---
Date of service: 05/20/18 Time of Service: 16:31 Assessment and Plan (1) Choledocholithiasis: Current visit: Yes Status: Acute ideally should go for timely ERCP, case was discussed with GI at [facility] and they have no beds available. Inpatient surgical consult, Dr Iyer who agrees with admission plan while awaiting procedure will admit to med/surg, NPO, IV fluids, pain management, and zosyn. plan for outpatient ERCP tomorrow at [facility]. repeat labs in am. lactate remains slightly elevated at 2.1 after fluid resuscitation in the ED, due to repeat at 2100, Is also in setting of acute CAP with COPD exacerbation, white count elevated at 18 but patient is currently taking a steroid burst. (2) Community acquired pneumonia: Current visit: Yes Status: Acute His symptoms improved with current treatment, it was abdominal pain that brought him to the eD today. He has completed 5 days of azithromycin today, needs one more dose of steroids tomorrow to complete a 5 day burst. Zosyn added for choledocholithiasis, day 1, should be adequate coverage for CAP. schedule duoneb, albuterol as needed. mucinex. lactate remains slightly elevated at 2.1, continue receiving IV fluids, repeat lactate at 2100. blood cultures pending. oxygen to maintain sats above 92%. (3) COPD with acute exacerbation: Current visit: Yes Status: Acute Patient reports respiratory status improved on current regimen. continue steroid burst due to be completed tomorrow, duonebs scheduled, and albuterol as needed. continue oxygen. (4) Status post laryngectomy: Current visit: No Status: Acute stable with chronic trach (5) Primary pulmonary hypertension: Current visit: No Status: Acute chronic, continue oxygen continuously (6) GERD (gastroesophageal reflux disease): Current visit: No Status: Chronic stable, pantoprazole daily (7) Discharge planning issues: Current visit: No Status: Acute will likely be discharged to home with no services once medically stable. (8) DVT prophylaxis: Current visit: No Status: Acute heparin subcutaneous. TEDS and SCD's (9) Insomnia: Current visit: Yes Status: Acute has not slept in past 4 nights d/t respiratory illness, can have melatonin and ambien if needed. History of Present Illness Chief Complaint: abdominal pain Narrative: 62yo m with history of COPD, GERD, ruptured esophagus in the past, throat cancer, currently on azithromycin and prednisone for COPD exacerbation, presents to the emergency department with chief complaint of abdominal pain. Pain started this morning a few hours ago and has persisted. Pain is severe. Pain localized to diffuse abdomen. No modifiers. He has no associated vomiting. Work up in the emergency department concerning for choledocholithiasis. Phone consult with [facility] GI is recommendation for admission here on IV antibiotics, IV fluids, pain management. He will be admitted to hospitalist services with surgical consult. Plan for outpatient ERCP tomorrow at [facility], transfer sooner for deterioration. Review of Systems Review of Systems All systems reviewed & are unremarkable except as noted in HPI and below Constitutional Reports difficulty sleeping (last 4 nights) ENT Denies dizziness Cardiovascular Denies chest pain and Denies syncope Respiratory Reports cough Gastrointestinal Reports abdominal pain (epigastric) Neurologic Denies dizziness and Denies syncope [facility] Medical History GERD (gastroesophageal reflux disease) (Chronic) COPD (chronic obstructive pulmonary disease) Malignant neoplasm of hypopharynx Pulmonary HTN Surgical History History of esophageal surgery (Inactive) Colonoscopy - MAC Status post laryngectomy Family History Mother Neoplasm Stroke Father Diabetes Heart disease Myocardial infarction Stroke Sister Neoplasm Brother Heart disease Asthma Grandfather No problems noted. Grandfather No problems noted. Grandmother Neoplasm Grandmother No problems noted. Brother No problems noted. Sister No problems noted. Sister No problems noted. Son No problems noted. Daughter No problems noted. Social History household members: other details: 2 current occupational status: disabled pets and animals: Yes pets and animals: dog(s) Smoking/Tobacco Use Status: Former Tobacco Use alcohol intake: never substance use type: does not use special eulogio needs: No Meds Home Medications Medication Instructions Recorded Confirmed Type Oxygen l INHALATION IN THE DAYTIME #0.5 05/13/13 05/17/18 History Oxygen l INHALATION NIGHTLY #1 05/13/13 05/17/18 History aspirin [Aspirin Low-Strength] 81 mg PO DAILY tab-cap 05/13/13 05/17/18 History omeprazole 20 mg PO DAILY #90 tab-cap 11/16/17 05/17/18 Rx ipratropium-albuterol 0.5 mg-3 3 ml UPD QID #50 vial 02/25/18 05/17/18 Rx mg(2.5 mg base)/3 mL nebulization soln magnesium oxide 400 mg (241.3 mg 400 mg PO HS #90 tab 03/01/18 05/17/18 Rx magnesium) tablet albuterol sulfate HFA 90 2 puff INHALATION Q6H PRN #3 03/30/18 05/17/18 Rx mcg/actuation aerosol inhaler inhaler fluticasone-salmeterol 115 mcg-21 2 puff INHALATION BID #3 inhaler 03/30/18 05/17/18 Rx mcg/actuation HFA aerosol inhaler prednisone 40 mg PO DAILY 5 Days #10 tab 05/16/18 05/17/18 Rx ipratropium bromide 17 1 puff IH QID #12.9 gm 05/18/18 05/18/18 Rx mcg/actuation HFA aerosol inhaler levofloxacin 500 mg tablet 500 mg PO DAILY #10 tab 05/18/18 05/18/18 Rx Allergies Allergy/AdvReac Type Severity Reaction Status Date / Time Influenza Virus Vaccines Allergy Severe Unverified 05/17/18 13:56 pneumococcal vaccine Allergy Severe swells up Unverified 05/17/18 13:56 Exam Chest Chest: normal inspection of the chest Resp Effort & Inspection: normal respiratory effort Auscultation: diminished lung sounds bilaterally throughout, rhonchi (scattered coarse) and wheezes (scattered) Cardio Rate: regular rate Rhythm: regular rhythm GI Inspection: distended Palpation: firm and tender in the epigastrum, in the LUQ and in the RUQ Auscultation: normal bowel sounds Skin General skin exam: no rashes or lesions noted and other (trach intact) Neuro General: alert and oriented x3 Cranial Nerves: CN's II-XI intact bilaterally Extrem General: normal to inspection and full ROM Psych Appearance: grossly normal Mood: congruent mood Affect: normal affect Attitude: cooperative Thought Process: normal Results Labs : 05/20/18 09:30 05/20/18 09:30 Laboratory Results - last 24 hr 05/20/18 05/20/18 05/20/18 09:30 09:30 09:30 WBC RBC Hgb Hct MCV MCH MCHC RDW Plt Count MPV Immature Gran % Neutrophils % Lymphocytes % Monocytes % Eosinophils % Basophils % Absolute Neutrophils Band Neutrophils Absolute Lymphocytes Absolute Monocytes Absolute Eosinophils Absolute Basophils Differential Comment Atypical Lymphocytes RBC Morphology PT 10.4 INR 1.0 Sodium Potassium Chloride Carbon Dioxide Anion Gap BUN Creatinine Estimated GFR/1.73 m2 Glucose Lactate 2.5 H* Calcium Magnesium Total Bilirubin AST ALT Alkaline Phosphatase Troponin I Total Protein Albumin Lipase > 49920 H Patient ABO/Rh O Negative Antibody Screen Negative 05/20/18 05/20/18 05/20/18 09:30 09:30 15:00 WBC 18.34 H RBC 4.77 Hgb 15.1 Hct 45.3 MCV 95.0 MCH 31.7 MCHC 33.3 RDW 12.8 Plt Count 311 MPV 8.8 Immature Gran % See Differential Neutrophils % 84.0 Lymphocytes % 3.0 Monocytes % 6.0 Eosinophils % 0.0 Basophils % 0.0 Absolute Neutrophils 16.14 H Band Neutrophils 4.0 Absolute Lymphocytes 1.10 L Absolute Monocytes 1.10 H Absolute Eosinophils 0.00 Absolute Basophils 0.00 Differential Comment Manual differential Atypical Lymphocytes 3 RBC Morphology Normal PT INR Sodium 140 Potassium 4.6 Chloride 100 Carbon Dioxide 34.0 H Anion Gap 6.0 BUN 16 Creatinine 1.07 Estimated GFR/1.73 m2 >= 60.00 Glucose 181 H Lactate 2.1 H Calcium 8.7 Magnesium 2.3 Total Bilirubin 1.3 H AST 271 H ALT 124 H Alkaline Phosphatase 146 H Troponin I < 0.02 Total Protein 8.1 Albumin 3.4 Lipase Patient ABO/Rh Antibody Screen Last Vital Signs Temp 36.5 C 05/20/18 15:47 Pulse 84 05/20/18 15:47 Resp 32 H 05/20/18 15:47 BP 132/84 05/20/18 15:47 Pulse Ox 96 05/20/18 14:26
--- NOTE | 2018-05-20 16:58 | W.SURGCON ---
Date of service: 05/20/18 Time of Service: 16:58 Assessment and Plan (1) Pancreatitis, acute: Current visit: Yes Status: Acute 62 y/o male with markedly elevated lipase > 15,000 and epigastric pain consistent with acute pancreatitis. Agree with NPO/IVF/bowel rest. (2) Choledocholithiasis: Current visit: Yes Status: Acute Marked elevation of lipase indicates probable distal CBD obstruction. No gallstones or CBD stones identified on CT. Suspect possible sludge or tiny stones. Possible small choledochocele also noted on CT. Agree with ERCP 05/21/18. If ERCP cannot be done 05/21/18, then would recommend MRCP. (3) Cholecystitis: Current visit: Yes Status: Acute Pericholecystic fluid/edema suggestive of acute cholecystitis noted on CT. Agree with Zosyn for antibiotic coverage. WBC 18k - unclear if this is related to cholecystitis/pancreratitis vs. steroids vs. pneumonia/bronchitis. Patient has multiple comorbid issues with his COPD/ pulmonary infection/ vascular disease. Would still recommend considering surgery at tertiary center for cholecystectomy pending additional workup and clearance. (4) COPD with acute exacerbation: Current visit: Yes Status: Acute Management per primary service. (5) Community acquired pneumonia: Current visit: Yes Status: Acute Management per primary service. History of Present Illness Chief Complaint: Abdominal pain Narrative: 62 y/o male who was admitted through the ED with acute pancreatitis, possible choledocholithiasis. Patient has a history of COPD, laryngeal cancer, s/p total laryngectomy with tracheostomy, esophageal perforation attributed to acid, and esophageal repair. He was seen in the ED on 05/16/18 for shortness of breath. Patient states that he had a cough with some bloody sputum and chest pain. He was diagnosed with COPD exacerbation and possible bronchitis. He was treated with steroids and also started on Azithromycin. He did follow-up with his PCP, Dr. Arnett on 05/17/18. Patient notes that this morning, he had sudden onset of severe epigastric pain after drinking 1/2 cup of coffee. He had sweats with the pain but denies fevers, chills, nausea, vomiting, or diarrhea. He has not had similar pain in the past. His pain is actually much improved at this time and he is feeling better. He denies any chest pain or shortness of breath at this time. WBC in the ED was 18k. Lipase > 15,000. Total bili - 1.3. AST/ALT - 271/124. Alk phos - 146. Initial lactate - 2.5, 2.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 Patient does note that his right leg is chronically cooler than his left. CT chest was also obtained and demonstrated mild nodular opacities in the right lower lobe, right middle lobe and right upper lobe most consistent with infectious process, a 1.8 x 1.9 x 1.2 cm lobular dominant nodule/scar/pneumonia in the anterior segment right upper lobe, and emphysema. Patient discussed with KEENA Marino in the ED this am. Transfer initially recommended due to patient's multiple comorbid conditions making him a higher risk for surgery/anesthesia as well as likely need for ERCP. [place] [facility] admitted to hospitalist service with [place] [facility]. Also discussed patient with Dr. Collier, who spoke with [place] [facility] Consults Consult date: 05/20/18 Requesting physician: Tosin Collier Review of Systems Review of Systems All systems reviewed & are unremarkable except as noted in HPI and below Constitutional Denies chills, Denies fever(s) and Reports other (sweats associated with pain) Cardiovascular Denies chest pain, Denies rapid heart rate and Denies dyspnea Respiratory Reports cough and Denies dyspnea Gastrointestinal Reports abdominal pain, Denies nausea and Denies vomiting PFSH Medical History GERD (gastroesophageal reflux disease) (Chronic) COPD (chronic obstructive pulmonary disease) Malignant neoplasm of hypopharynx Pulmonary HTN Surgical History History of esophageal surgery (Inactive) Colonoscopy - MAC Status post laryngectomy Family History Mother Neoplasm Stroke Father Diabetes Heart disease Myocardial infarction Stroke Sister Neoplasm Brother Heart disease Asthma Grandfather No problems noted. Grandfather No problems noted. Grandmother Neoplasm Grandmother No problems noted. Brother No problems noted. Sister No problems noted. Sister No problems noted. Son No problems noted. Daughter No problems noted. Social History household members: other details: 2 current occupational status: disabled pets and animals: Yes pets and animals: dog(s) Smoking/Tobacco Use Status: Former Tobacco Use alcohol intake: never substance use type: does not use special eulogio needs: No Exam Const General: cooperative, comfortable, no acute distress and well developed Nutritional Appearance: well nourished Orientation: alert and oriented x3 HENMT Head: normocephalic and atraumatic Eyes Sclera: sclerae normal Neck Neck: no JVD Other: (+) tracheostomy with trach collar Resp Effort & Inspection: normal respiratory effort and able to speak in complete sentences Auscultation: clear to auscultation bilaterally Cardio Jugular venous pressure: no JVD Rate: regular rate Rhythm: regular rhythm GI Inspection: non-distended and obesity Palpation: soft, not firm, no guarding, no masses, not rigid and tender (moderately tender to palpation in epigastrium) in the epigastrum Skin General skin exam: no rashes or lesions noted and no jaundice Results Last Vital Signs Temp 36.5 C 05/20/18 15:47 Pulse 84 05/20/18 15:47 Resp 32 H 05/20/18 15:47 BP 132/84 05/20/18 15:47 Pulse Ox 96 05/20/18 14:26 Labs : 05/20/18 09:30 05/20/18 09:30 Laboratory Results - last 24 hr 05/20/18 05/20/18 05/20/18 09:30 09:30 09:30 WBC RBC Hgb Hct MCV MCH MCHC RDW Plt Count MPV Immature Gran % Neutrophils % Lymphocytes % Monocytes % Eosinophils % Basophils % Absolute Neutrophils Band Neutrophils Absolute Lymphocytes Absolute Monocytes Absolute Eosinophils Absolute Basophils Differential Comment Atypical Lymphocytes RBC Morphology PT 10.4 INR 1.0 Sodium Potassium Chloride Carbon Dioxide Anion Gap BUN Creatinine Estimated GFR/1.73 m2 Glucose Lactate 2.5 H* Calcium Magnesium Total Bilirubin AST ALT Alkaline Phosphatase Troponin I Total Protein Albumin Lipase > 99493 H Patient ABO/Rh O Negative Antibody Screen Negative 05/20/18 05/20/18 05/20/18 09:30 09:30 15:00 WBC 18.34 H RBC 4.77 Hgb 15.1 Hct 45.3 MCV 95.0 MCH 31.7 MCHC 33.3 RDW 12.8 Plt Count 311 MPV 8.8 Immature Gran % See Differential Neutrophils % 84.0 Lymphocytes % 3.0 Monocytes % 6.0 Eosinophils % 0.0 Basophils % 0.0 Absolute Neutrophils 16.14 H Band Neutrophils 4.0 Absolute Lymphocytes 1.10 L Absolute Monocytes 1.10 H Absolute Eosinophils 0.00 Absolute Basophils 0.00 Differential Comment Manual differential Atypical Lymphocytes 3 RBC Morphology Normal PT INR Sodium 140 Potassium 4.6 Chloride 100 Carbon Dioxide 34.0 H Anion Gap 6.0 BUN 16 Creatinine 1.07 Estimated GFR/1.73 m2 >= 60.00 Glucose 181 H Lactate 2.1 H Calcium 8.7 Magnesium 2.3 Total Bilirubin 1.3 H AST 271 H ALT 124 H Alkaline Phosphatase 146 H Troponin I < 0.02 Total Protein 8.1 Albumin 3.4 Lipase Patient ABO/Rh Antibody Screen Imaging Abdomen CT scan report/results: report reviewed and image reviewed CT scan - pelvis: report reviewed and image reviewed Imaging Studies: Patient Name: SANGEETHA BAUER #: [id number]: ER Ordering Provider: : [facility] Primary Care Provider: Wyatt Anrett M.D.Date of Exam: 05/20/18Sex: M : 4Age: 62 Exam(s) Addendum created by Jarad Alberts MD on 05/20/2018 10:47:19 AM EST History: Diffuse abdominal pain, elevated serum lipase, no previous imaging of the right common iliac artery. THIS REPORT CONTAINS FINDINGS THAT MAY BE CRITICAL TO PATIENT CARE. The findings were verbally communicated via telephone conference with KEENA Marino at 10:46 AM EST on 05/20/2018. The findings were acknowledged and understood. Initial report created on 05/20/2018 10:37:03 AM EST EXAM: CT Chest With Contrast EXAM DATE/TIME: 05/20/2018 9:33 AM CLINICAL HISTORY: 62 years old, male; Signs and symptoms; Other: Severe abdominal pain; Patient HX: Severe abdomen pain TECHNIQUE: Axial computed tomography images of the chest with intravenous contrast. All CT scans at this facility use at least one of these dose optimization techniques: automated exposure control; mA and/or kV adjustment per patient size (includes targeted exams where dose is matched to clinical indication); or iterative reconstruction. Coronal and sagittal reformatted images were created and reviewed. CONTRAST: 100 ml of OMNI-PAQUE 350 administered intravenously. COMPARISON: No relevant prior studies available. FINDINGS: Lungs: Mild nodular opacities in the right lower lobe, right middle lobe and right upper lobe most consistent with infectious process. 1.8 x 1.9 x 1.2 cm lobular dominant nodule/scar/pneumonia in the anterior segment right upper lobe. Followup according to the staff radiologist's final report. Mild right upper lobe paraseptal emphysema. Mild centrilobular emphysema. Pleural space: Normal. No pneumothorax. No pleural effusion. Heart: Mild calcified coronary artery disease. Aorta: Normal. No aortic aneurysm. Lymph nodes: Unremarkable. No enlarged lymph nodes. Bones/joints: Unremarkable. No acute fracture. Soft tissues: Unremarkable. IMPRESSION: 1. Mild nodular opacities in the right lower lobe, right middle lobe and right upper lobe most consistent with infectious process. 2. 1.8 x 1.9 x 1.2 cm lobular dominant nodule/scar/pneumonia in the anterior segment right upper lobe. Followup according to the staff radiologist's final report. 3. Mild right upper lobe paraseptal emphysema. 4. Mild centrilobular emphysema. EXAM: CT Abdomen With Contrast EXAM DATE/TIME: 05/20/2018 9:33 AM CLINICAL HISTORY: 62 years old, male; Signs and symptoms; Other: Severe abdominal pain; Patient HX: Severe abdomen pain TECHNIQUE: Axial computed tomography images of the abdomen with intravenous contrast. All CT scans at this facility use at least one of these dose optimization techniques: automated exposure control; mA and/or kV adjustment per patient size (includes targeted exams where dose is matched to clinical indication); or iterative reconstruction. Coronal and sagittal reformatted images were created and reviewed. CONTRAST: 100 ml of OMNI-PAQUE 350 administered intravenously. COMPARISON: No relevant prior studies available. FINDINGS: Lower thorax: Unremarkable. Liver: Normal. No mass. Gallbladder and bile ducts: Mild to moderate pericholecystic edema and/or fluid most consistent with cholecystitis. Dilated 10 mm common hepatic duct with no dilated intrahepatic biliary tree or dilated distal common bile duct. Possible small choledochocele. Pancreas: Normal. No ductal dilation. Spleen: Normal. No splenomegaly. Adrenals: Normal. No mass. Kidneys and ureters: Normal. No hydronephrosis. Stomach and bowel: Normal. No obstruction. No mucosal thickening. Intraperitoneal space: Unremarkable. No free air. No significant fluid collection. Bones/joints: Multilevel central spinal stenosis. Soft tissues: Unremarkable. Vasculature: 3.8 cm infrarenal abdominal aortic aneurysm without rupture. 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 Lymph nodes: Unremarkable. No enlarged lymph nodes. IMPRESSION: 1. Mild to moderate pericholecystic edema and/or fluid most consistent with cholecystitis. 2. 3.8 cm infrarenal abdominal aortic aneurysm without rupture. 3. 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 4. Dilated 10 mm common hepatic duct with no dilated intrahepatic biliary tree or dilated distal common bile duct. Possible small choledochocele. Dictated and Authenticated by: Jarad Alberts MD. Ordering:BC Boo MD Ordered By: CC: Dictated By: Reports vrad 05/20/18 0933 05/20/18 1047 Transcribed By: Berna Marques This is privileged, confidential information intended only for the provider named. Any use or distribution by any person other than this provider is strictly prohibited. If you receive this report in error, please notify us immediately at [phone] and return the original report to us at the address above. Thank-you.
--- NOTE | 2018-05-20 17:03 | SCONE_ITS ---
Date of service: 05/20/18 Time of Service: 16:58 Assessment and Plan (1) Pancreatitis, acute: Current visit: Yes Status: Acute 62 y/o male with markedly elevated lipase > 15,000 and epigastric pain consistent with acute pancreatitis. Agree with NPO/IVF/bowel rest. (2) Choledocholithiasis: Current visit: Yes Status: Acute Marked elevation of lipase indicates probable distal CBD obstruction. No gallstones or CBD stones identified on CT. Suspect possible sludge or tiny stones. Possible small choledochocele also noted on CT. Agree with ERCP 05/21/18. If ERCP cannot be done 05/21/18, then would recommend MRCP. (3) Cholecystitis: Current visit: Yes Status: Acute Pericholecystic fluid/edema suggestive of acute cholecystitis noted on CT. Agree with Zosyn for antibiotic coverage. WBC 18k - unclear if this is related to cholecystitis/pancreratitis vs. steroids vs. pneumonia/bronchitis. Patient has multiple comorbid issues with his COPD/ pulmonary infection/ vascular disease. Would still recommend considering surgery at tertiary center for laura cystectomy pending additional workup and clearance. (4) COPD with acute exacerbation: Current visit: Yes Status: Acute Management per primary service. (5) Community acquired pneumonia: Current visit: Yes Status: Acute Management per primary service. History of Present Illness Chief Complaint: Abdominal pain Narrative: 62 y/o male who was admitted through the ED with acute pancreatitis, possible choledocholithiasis. Patient has a history of COPD, laryngeal cancer, s/p total laryngectomy with tracheostomy, esophageal perforation attributed to acid, and esophageal repair. He was seen in the ED on 05/16/18 for shortness of breath. Patient states that he had a cough with some bloody sputum and chest pain. He was diagnosed with COPD exacerbation and possible bronchitis. He was treated with steroids and also started on Azithromycin. He did follow-up with his PCP, Dr. Arnett on 05/17/18. Patient notes that this morning, he had sudden on set of severe epigastric pain after drinking 1/2 cup of coffee. He had sweats with the pain but denies fevers, chills, nausea, vomiting, or diarrhea. He has not had similar pain in the past. His pain is actually much improved at this time and he is feeling better. He denies any chest pain or shortness of breath at this time. WBC in the ED was 18k. Lipase > 15,000. Total bili - 1.3. AST/ALT - 271/124. Alk phos - 146. Initial lactate - 2.5, 2.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 Patient does note that his right leg is chronically cooler than his left. CT chest was also obtained and demonstrated mild nodular opacities in the right lower lobe, right middle lobe and right upper lobe most consistent with infectious process, a 1.8 x 1.9 x 1.2 cm lobular dominant nodule/scar/pneumonia in the anterior segment right upper lobe, and emphysema. Patient discussed with KEENA Marino in the ED this am. Transfer initially recommended due to patient's multiple comorbid conditions making him a higher risk for surgery/anesthesia as well as likely need for ERCP. No beds available [place] [facility] Patient admitted to hospitalist service with plans for transfer to [facility] for ERCP 05/21/18. Also discussed patient with Dr. Collier, who spoke with GI at [facility] as well. Consults Consult date: 05/20/18 Requesting physician: Tosin Collier Review of Systems Review of Systems All systems reviewed & are unremarkable except as noted in HPI and below Constitutional Denies chills, Denies fever(s) and Reports other (sweats associated with pain) Cardiovascular Denies chest pain, Denies rapid heart rate and Denies dyspnea Respiratory Reports cough and Denies dyspnea Gastrointestinal Reports abdominal pain, Denies nausea and Denies vomiting PFSH Medical History GERD (gastroesophageal reflux disease) (Chronic) COPD (chronic obstructive pulmonary disease) Malignant neoplasm of hypopharynx Pulmonary HTN Surgical History History of esophageal surgery (Inactive) Colonoscopy - MAC Status post laryngectomy Family History Mother Neoplasm Stroke Father Diabetes Heart disease Myocardial infarction Stroke Sister Neoplasm Brother Heart disease Asthma Grandfather No problems noted. Grandfather No problems noted. Grandmother Neoplasm Grandmother No problems noted. Brother No problems noted. Sister No problems noted. Sister No problems noted. Son No problems noted. Daughter No problems noted. Social History household members: other details: 2 current occupational status: disabled pets and animals: Yes pets and animals: dog(s) Smoking/Tobacco Use Status: Former Tobacco Use alcohol intake: never substance use type: does not use special eulogio needs: No Exam Const General: cooperative, comfortable, no acute distress and well developed Nutritional Appearance: well nourished Orientation: alert and oriented x3 HENMT Head: normocephalic and atraumatic Eyes Sclera: sclerae normal Neck Neck: no JVD Other: (+) tracheostomy with trach collar Resp Effort & Inspection: normal respiratory effort and able to speak in complete sentences Auscultation: clear to auscultation bilaterally Cardio Jugular venous pressure: no JVD Rate: regular rate Rhythm: regular rhythm GI Inspection: non-distended and obesity Palpation: soft, not firm, no guarding, no masses, not rigid and tender (moderately tender to palpation in epigastrium) in the epigastrum Skin General skin exam: no rashes or lesions noted and no jaundice Results Last Vital Signs Temp 36.5 C 05/20/18 15:47 Pulse 84 05/20/18 15:47 Resp 32 H 05/20/18 15:47 BP 132/84 05/20/18 15:47 Pulse Ox 96 05/20/18 14:26 Labs : 05/20/18 09:30 05/20/18 09:30 Laboratory Results - last 24 hr 05/20/18 05/20/18 05/20/18 09:30 09:30 09:30 WBC RBC Hgb Hct MCV MCH MCHC RDW Plt Count MPV Immature Gran % Neutrophils % Lymphocytes % Monocytes % Eosinophils % Basophils % Absolute Neutrophils Band Neutrophils Absolute Lymphocytes Absolute Monocytes Absolute Eosinophils Absolute Basophils Differential Comment Atypical Lymphocytes RBC Morphology PT 10.4 INR 1.0 Sodium Potassium Chloride Carbon Dioxide Anion Gap BUN Creatinine Estimated GFR/1.73 m2 Glucose Lactate 2.5 H* Calcium Magnesium Total Bilirubin AST ALT Alkaline Phosphatase Troponin I Total Protein Albumin Lipase > 25287 H Patient ABO/Rh O Negative Antibody Screen Negative 05/20/18 05/20/18 05/20/18 09:30 09:30 15:00 WBC 18.34 H RBC 4.77 Hgb 15.1 Hct 45.3 MCV 95.0 MCH 31.7 MCHC 33.3 RDW 12.8 Plt Count 311 MPV 8.8 Immature Gran % See Differential Neutrophils % 84.0 Lymphocytes % 3.0 Monocytes % 6.0 Eosinophils % 0.0 Basophils % 0.0 Absolute Neutrophils 16.14 H Band Neutrophils 4.0 Absolute Lymphocytes 1.10 L Absolute Monocytes 1.10 H Absolute Eosinophils 0.00 Absolute Basophils 0.00 Differential Comment Manual differential Atypical Lymphocytes 3 RBC Morphology Normal PT INR Sodium 140 Potassium 4.6 Chloride 100 Carbon Dioxide 34.0 H Anion Gap 6.0 BUN 16 Creatinine 1.07 Estimated GFR/1.73 m2 >= 60.00 Glucose 181 H Lactate 2.1 H Calcium 8.7 Magnesium 2.3 Total Bilirubin 1.3 H AST 271 H ALT 124 H Alkaline Phosphatase 146 H Troponin I < 0.02 Total Protein 8.1 Albumin 3.4 Lipase Patient ABO/Rh Antibody Screen Imaging Abdomen CT scan report/results: report reviewed and image reviewed CT scan - pelvis: report reviewed and image reviewed Imaging Studies: Patient Name: SANGEETHA BAUER #: [id number]: ER Ordering Provider: : [facility] ER Primary Care Provider: Wyatt Arnett M.D.Date of Exam: 05/20/18Sex: M : 4Age: 62 Exam(s) Addendum created by Jarad Alberts MD on 05/20/2018 10:47:19 AM EST History: Diffuse abdominal pain, elevated serum lipase, no previous imaging of the right common iliac artery. THIS REPORT CONTAINS FINDINGS THAT MAY BE CRITICAL TO PATIENT CARE. The findings were verbally communicated via telephone conference with KEENA Marino at 10:46 AM EST on 05/20/2018. The findings were acknowledged and understood. Initial report created on 05/20/2018 10:37:03 AM EST EXAM: CT Chest With Contrast EXAM DATE/TIME: 05/20/2018 9:33 AM CLINICAL HISTORY: 62 years old, male; Signs and symptoms; Other: Severe abdominal pain; Patient HX: Severe abdomen pain TECHNIQUE: Axial computed tomography images of the chest with intravenous contrast. All CT scans at this facility use at least one of these dose optimization techniques: automated exposure control; mA and/or kV adjustment per patient size (includes targeted exams where dose is matched to clinical indication); or iterative reconstruction. Coronal and sagittal reformatted images were created and reviewed. CONTRAST: 100 ml of OMNI-PAQUE 350 administered intravenously. COMPARISON: No relevant prior studies available. FINDINGS: Lungs: Mild nodular opacities in the right lower lobe, right middle lobe and right upper lobe most consistent with infectious process. 1.8 x 1.9 x 1.2 cm lobular dominant nodule/scar/pneumonia in the anterior segment right upper lobe. Followup according to the staff radiologist's final report. Mild right upper lobe paraseptal emphysema. Mild centrilobular emphysema. Pleural space: Normal. No pneumothorax. No pleural effusion. Heart: Mild calcified coronary artery disease. Aorta: Normal. No aortic aneurysm. Lymph nodes: Unremarkable. No enlarged lymph nodes. Bones/joints: Unremarkable. No acute fracture. Soft tissues: Unremarkable. IMPRESSION: 1. Mild nodular opacities in the right lower lobe, right middle lobe and right upper lobe most consistent with infectious process. 2. 1.8 x 1.9 x 1.2 cm lobular dominant nodule/scar/pneumonia in the anterior segment right upper lobe. Followup according to the staff radiologist's final report. 3. Mild right upper lobe paraseptal emphysema. 4. Mild centrilobular emphysema. EXAM: CT Abdomen With Contrast EXAM DATE/TIME: 05/20/2018 9:33 AM CLINICAL HISTORY: 62 years old, male; Signs and symptoms; Other: Severe abdominal pain; Patient HX: Severe abdomen pain TECHNIQUE: Axial computed tomography images of the abdomen with intravenous contrast. All CT scans at this facility use at least one of these dose optimization techniques: automated exposure control; mA and/or kV adjustment per patient size (includes targeted exams where dose is matched to clinical indication); or iterative reconstruction. Coronal and sagittal reformatted images were created and reviewed. CONTRAST: 100 ml of OMNI-PAQUE 350 administered intravenously. COMPARISON: No relevant prior studies available. FINDINGS: Lower thorax: Unremarkable. Liver: Normal. No mass. Gallbladder and bile ducts: Mild to moderate pericholecystic edema and/or fluid most consistent with cholecystitis. Dilated 10 mm common hepatic duct with no dilated intrahepatic biliary tree or dilated distal common bile duct. Possible small choledochocele. Pancreas: Normal. No ductal dilation. Spleen: Normal. No splenomegaly. Adrenals: Normal. No mass. Kidneys and ureters: Normal. No hydronephrosis. Stomach and bowel: Normal. No obstruction. No mucosal thickening. Intraperitoneal space: Unremarkable. No free air. No significant fluid collection. Bones/joints: Multilevel central spinal stenosis. Soft tissues: Unremarkable. Vasculature: 3.8 cm infrarenal abdominal aortic aneurysm without rupture. 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 Lymph nodes: Unremarkable. No enlarged lymph nodes. IMPRESSION: 1. Mild to moderate pericholecystic edema and/or fluid most consistent with cholecystitis. 2. 3.8 cm infrarenal abdominal aortic aneurysm without rupture. 3. 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 4. Dilated 10 mm common hepatic duct with no dilated intrahepatic biliary tree or dilated distal common bile duct. Possible small choledochocele. Dictated and Authenticated by: Jarad Alberts MD. Ordering:BC Boo MD Ordered By: CC: Dictated By: Reports vrad 05/20/18 0933 05/20/18 1047 Transcribed By: Berna Marques This is privileged, confidential information intended only for the provider named. Any use or distribution by any person other than this provider is strictly prohibited. If you receive this report in error, please notify us immed iately at [phone] and return the original report to us at the address above. Thank-you.
[2018-05-20] MEDS: Heparin 5,000 UNITS/ML VIAL 5000 UNITS SC ×2 (17:28→23:49)
[2018-05-20] MEDS: Normal Saline 1,000 ML 200 ML IV ×3 (17:36→22:18)
[2018-05-20 21:42] LABS: Lactate-non-spesis 1.2 mmol/L (0.6-1.4)
[2018-05-20] MEDS: guaiFENesin 600 MG TABCR PO (22:10)
[2018-05-20] MEDS: Melatonin 3 MG TAB 6 MG PO (22:11)
[2018-05-20] MEDS: Magnesium Oxide 400 MG TAB PO (22:11)
[2018-05-20] MEDS: Albuterol/Ipratropium 3 ML UPD VIAL UPD (22:11)
[2018-05-21] VITALS (9 sets, daily range): BP systolic 116–145; BP diastolic 66–88; PULSE 72–96; RESP 4–28; TEMP 36.4–38.2; O2SAT 28–98
[2018-05-21] MEDS: Normal Saline 1,000 ML 200 ML IV ×3 (03:48→16:21)
[2018-05-21] MEDS: PIPERACILLIN/TAZO 3.375 GM in Normal Saline 50 ML IVPB ×3 (05:28→18:17)
[2018-05-21 07:24] LABS: Lactate-non-spesis 0.6 mmol/L (0.6-1.4)
[2018-05-21 07:27] LABS: Abs Immature Grans 0.06 k/cumm (0.0-0.09); HCT 39.6 % (40.0-50.0); HGB 12.9 g/dL (13.5-17.5); Mean Corp. HGB Concentration 32.6 g/dL (32.0-36.0); Mean Corpuscular Hemoglobin 31.5 pg (27.0-33.0); Mean Corpuscular Volume 96.8 fL (80-95); Mean Platelet Volume 8.5 fL (8.0-11.0); Platelet Count 192 x1000/uL (130-400); RBC 4.09 m/cumm (4.50-6.00); RBC Distribution Width 12.6 % (11.8-14.1); White Blood Cell Count 7.64 k/cumm (4.4-10.8)
[2018-05-21 07:36] LABS: Prothrombin Time 11.5 sec (9.3-11.0)
[2018-05-21 07:37] LABS: INR 1.1 (0.9-1.1)
[2018-05-21 07:38] LABS: ALT 207 U/L (12-78); AST 171 U/L (15-37); Albumin 2.7 g/dL (3.4-5.0); Alkaline Phosphatase 130 U/L (46-116); Anion Gap 4.7 mmol/L (3-11); BUN 11 mg/dL (7-18); Bilirubin, Direct 0.25 mg/dL (0.00-0.20); Bilirubin, Total 0.7 mg/dL (0.2-1.0); CO2 33.3 mmol/L (21.0-32.0); CREATININE 0.91 mg/dL (0.70-1.30); Calcium 7.7 mg/dL (8.5-10.1); Chloride 103 mmol/L (98-107); Glucose 123 mg/dL (70-100); Magnesium 2.2 mg/dL (1.8-2.4); Potassium 3.8 mmol/L (3.5-5.1); Sodium 141 mmol/L (136-145); Total Protein 6.6 g/dL (6.4-8.2)
[2018-05-21 08:03] LABS: Absolute Eosinophil Count 0.23 k/cumm (0.0-0.7); Absolute Lymphocyte Count 1.07 k/cumm (1.2-3.4); Absolute Monocyte Count 0.46 k/cumm (0.11-0.7); Absolute Neutrophil Count 5.88 k/cumm (1.2-6.7); Atypical Lymphocytes % 4; Diff Comment Manual Differential; RBC Morphology Normal
[2018-05-21] MEDS: Budesonide/Formoterol 160/4.5 6 GM 60 PUFF INH IH (08:03)
[2018-05-21] MEDS: Pantoprazole 40 MG VIAL IVP (09:12)
[2018-05-21] MEDS: Normal Saline Flush 10 ML SYR IVP (09:12)
[2018-05-21] MEDS: guaiFENesin 600 MG TABCR PO (09:37)
[2018-05-21] MEDS: predniSONE 20 MG TAB 40 MG PO (09:38)
[2018-05-21] MEDS: Heparin 5,000 UNITS/ML VIAL 5000 UNITS SC ×2 (09:39→16:21)
--- NOTE | 2018-05-21 12:42 | PDOC.CMIN ---
- If Service Date Differs Date of service: 05/21/18 Time of Service: 12:42 Care Management Initial Assess REASON FOR HOSPITALIZATION:: Choledocholithiasis, cholangitis. PAST MEDICAL HISTORY/PAST SURGICAL HISTORY:: Medical: COPD on home O2, laryngeal Ca, nocturnal leg cramps, H/O pneumonia, chronic hypoxia, distant H/O ETOH abuse, H/O tobacco abuse, GERD. Surgical: s/p laryngectomy 2013, esophageal surgery due to ruptured esophagus. PREVIOUS FUNCTIONAL STATUS/SOCIAL/FAMILY SUPPORTS:: He is 61 yo man who lives in [place]. A female friend lives in [facility]. He is . He has 1 adult son and 1 adult daughter, 5 grandchildren and 2 great grandchildren. He is usually independent at home and he sometimes drives, but usually his sister Christine takes him to appts and shopping. CURRENT FUNCTIONAL STATUS:: Hussein is siting up in bed he is alert and engaged during assessment. Hussein is easy to understand although he has a trach. He is able to whisper. He states there have been no changes since his last admission at home. Hussein is awating bed at [facility] or [facility]. [facility] has accepted pending bed availability. ADVANCE DIRECTIVES:: On file at [facility] sister is his DPOA. Has patient been provided with information about the portal?: Yes Did the patient sign up for the portal?: No CODE STATUS:: Full Code INSURANCE COVERAGE / FINANCIAL ISSUES:: Medicaid CURRENT HOME/COMMUNITY SERVICES/EQUIPMENT:: Oxygen, nebulizer, suction equipment, through [employer]. PRIMARY CARE PHYSICIAN:: POTENTIAL DISCHARGE NEEDS:: Transfer to [facility] pending bed availability. PATIENT/FAMILY EDUCATION NEEDS:: Anticipate transition to [facility] vs [facility] ANTICIPATED BARRIERS TO DISCHARGE:: None identified at this time. TRANSPORTATION:: Pending disposition Hussein will transfer via ambulance. PLAN:: Anticipate that Hussein will be transfered to tertiary center once a bed becomes available. [facility] has accpeted pending bed availability.
--- NOTE | 2018-05-21 13:21 | DI.MRI_ITS ---
SYMPTOMS/DIAGNOSIS: SEVERE ABDOMINAL PAIN, ? CHOLEDOCHOLITHIASIS MRCP: Routine examination. Comparison CT scan is from 05/20/18. There are stones seen within the gallbladder. No stones are seen in the common duct. The common duct measures 0.7 cm in diameter. There is no evidence of a pancreatic mass. No significant abdominal ascites is noted. IMPRESSION: 1. Cholelithiasis. 2. No evidence of choledocholithiasis or biliary ductal dilatation.
--- NOTE | 2018-05-21 13:42 | INITIAL_ITS ---
- If Service Date Differs Date of service: 05/21/18 Time of Service: 12:42 Care Management Initial Assess REASON FOR HOSPITALIZATION:: Choledocholithiasis, cholangitis. PAST MEDICAL HISTORY/PAST SURGICAL HISTORY:: Medical: COPD on home O2, laryngeal Ca, nocturnal leg cramps, H/O pneumonia, chronic hypoxia, distant H/O ETOH abuse, H/O tobacco abuse, GERD. Surgical: s/p laryngectomy 2013, esophageal surgery due to ruptured esophagus. PREVIOUS FUNCTIONAL STATUS/SOCIAL/FAMILY SUPPORTS:: He is 61 yo man who lives in [place]. A female friend lives in [facility]. He is . He has 1 adult son and 1 adult daughter, 5 grandchildren and 2 great grandchildren. He is usually independent at home and he sometimes drives, but usually his sister Christine takes him to appts and shopping. CURRENT FUNCTIONAL STATUS:: Hussein is siting up in bed he is alert and engaged during assessment. Hussein is easy to understand although he has a trach. He is able to whisper. He states there have been no changes since his last admission at home. Hussein is awating bed at [facility] or [facility]. [facility] has accepted pending bed availability. ADVANCE DIRECTIVES:: On file at [facility] sister is his DPOA. Has patient been provided with information about the portal?: Yes Did the patient sign up for the portal?: No CODE STATUS:: Full Code INSURANCE COVERAGE / FINANCIAL ISSUES:: Medicaid CURRENT HOME/COMMUNITY SERVICES/EQUIPMENT:: Oxygen, nebulizer, suction equipment, through [employer]. PRIMARY CARE PHYSICIAN:: POTENTIAL DISCHARGE NEEDS:: Transfer to [facility] pending bed availability. PATIENT/FAMILY EDUCATION NEEDS:: Anticipate transition to [facility] vs [facility] ANTICIPATED BARRIERS TO DISCHARGE:: None identified at this time. TRANSPORTATION:: Pending disposition Hussein will transfer via ambulance. PLAN:: Anticipate that Hussein will be transfered to tertiary center once a bed becomes available. [facility] has accpeted pending bed availability.
[2018-05-21] MEDS: Albuterol/Ipratropium 3 ML UPD VIAL UPD ×2 (13:43→17:28)
--- NOTE | 2018-05-21 14:52 | CHAPLAIN ---
Hussein was sitting up on the edge of his bed when I visited. I had some difficulty hearing him speak with his tach but we easily engaged in a conversation and was pleasant. He is waiting for a bed to open up at [facility] [[email or web address] or [facility].
--- NOTE | 2018-05-21 17:48 | PGE_ITS ---
Date of Service Date of service: 05/21/18 Time of Service: 16:20 Assessment and Plan (1) Pancreatitis, acute: Current visit: Yes Status: Acute [place] pancreatitis improving He is medically very complex. [facility] has accepted in [facility] so he will be going there tonight to continue treatment for his gallstones and pneumonia Qualifiers: Pancreatitis type: biliary Acute pancreatitis complication: no infection or necrosis Qualified Code(s): K85.10 - Biliary acute pancreatitis without necrosis or infection Subjective Interval history since last seen: Feeling better then he did on admission. No N/V he is complaining of blood tinged discharge from his tracheostomy which is new for him. Exam GI Inspection: normal to inspection Palpation: soft, no guarding and tender in the epigastrum and in the RLQ Auscultation: normal bowel sounds Objective Objective Clinical Data: Abnormal lab results 05/21/18 05/21/18 05/21/18 Range/Units 07:10 07:10 07:10 RBC 4.09 L (4.50-6.00) m/cumm Hgb 12.9 L D (13.5-17.5) g/dL Hct 39.6 L (40.0-50.0) % MCV 96.8 H (80-95) fL Absolute Lymphocytes 1.07 L (1.2-3.4) k/cumm PT 11.5 H (9.3-11.0) sec Carbon Dioxide 33.3 H (21.0-32.0) mmol/L Glucose 123 H (70-100) mg/dL Calcium 7.7 L (8.5-10.1) mg/dL Conjugated Bilirubin 0.25 H (0.00-0.20) mg/dL AST 171 H (15-37) U/L ALT 207 H (12-78) U/L Alkaline Phosphatase 130 H (46-116) U/L Albumin 2.7 L (3.4-5.0) g/dL Vital Signs Temperature 97.5 F L 05/21/18 16:45 Temperature Source Tympanic 05/21/18 16:45 Pulse 96 H 05/21/18 17:28 Pulse Rhythm Regular 05/21/18 16:00 Respiratory Rate 18 05/21/18 17:28 Respiratory Effort 05/21/18 16:00 Respiratory Depth Normal 05/21/18 16:00 Respiratory Pattern Tachypnea 05/21/18 16:00 Blood Pressure 145/88 H 05/21/18 16:45 Pulse Oximetry 98 05/21/18 17:28 Oxygen Delivery Method Trach Collar 05/21/18 17:28 Oxygen Flow Rate 0 05/21/18 16:45 Fraction of Inspired Oxygen (FIO2) 28 05/21/18 17:28 Pain Level 0 05/20/18 15:47 Comment 05/21/18 11:17 Intake & Output 05/20/18 05/21/18 05/21/18 23:59 11:59 23:59 Intake Total 3232.916 / 3232.916 2630 / 3150.000 520.000 / 3150.000 Output Total 1075 / 1075 2300 / 2300 Balance 2157.916 / 2157.916 330 / 850.000 520.000 / 850.000 Weight 219 lb 0.009 oz Intake: IV 3157.916 / 3157.916 2630 / 3150.000 520.000 / 3150.000 Oral 75 / 75 0 / 0 Output: Urine 1075 / 1075 2300 / 2300 Other: Urine Color Yellow Yellow Urine Appearance Clear Clear Urine Odor None Voiding Methods Urinal Urinal Laboratory Results WBC 7.64 k/cumm (4.4-10.8) D 05/21/18 07:10 RBC 4.09 m/cumm (4.50-6.00) L 05/21/18 07:10 Hgb 12.9 g/dL (13.5-17.5) L D 05/21/18 07:10 Hct 39.6 % (40.0-50.0) L 05/21/18 07:10 MCV 96.8 fL (80-95) H 05/21/18 07:10 MCH 31.5 pg (27.0-33.0) 05/21/18 07:10 MCHC 32.6 g/dL (32.0-36.0) 05/21/18 07:10 RDW 12.6 % (11.8-14.1) 05/21/18 07:10 Plt Count 192 x1000/uL (130-400) D 05/21/18 07:10 MPV 8.5 fL (8.0-11.0) 05/21/18 07:10 Immature Gran % 0.0 05/21/18 07:10 Neutrophils % 77.0 05/21/18 07:10 Lymphocytes % 10.0 05/21/18 07:10 Monocytes % 6.0 05/21/18 07:10 Eosinophils % 3.0 05/21/18 07:10 Basophils % 0.0 05/21/18 07:10 Absolute Neutrophils 5.88 k/cumm (1.2-6.7) 05/21/18 07:10 Band Neutrophils 4.0 % 05/20/18 09:30 Absolute Lymphocytes 1.07 k/cumm (1.2-3.4) L 05/21/18 07:10 Absolute Monocytes 0.46 k/cumm (0.11-0.7) 05/21/18 07:10 Absolute Eosinophils 0.23 k/cumm (0.0-0.7) 05/21/18 07:10 Absolute Basophils 0.00 k/cumm (0.0-0.2) 05/21/18 07:10 Differential Comment Manual differential 05/21/18 07:10 Atypical Lymphocytes 4 05/21/18 07:10 RBC Morphology Normal 05/21/18 07:10 PT 11.5 sec (9.3-11.0) H 05/21/18 07:10 INR 1.1 (0.9-1.1) 05/21/18 07:10 Sodium 141 mmol/L (136-145) 05/21/18 07:10 Potassium 3.8 mmol/L (3.5-5.1) 05/21/18 07:10 Chloride 103 mmol/L (98-107) 05/21/18 07:10 Carbon Dioxide 33.3 mmol/L (21.0-32.0) H 05/21/18 07:10 Anion Gap 4.7 mmol/L (3-11) 05/21/18 07:10 BUN 11 mg/dL (7-18) 05/21/18 07:10 Creatinine 0.91 mg/dL (0.70-1.30) 05/21/18 07:10 Estimated GFR/1.73 m2 >= 60.00 (mL/min/1.73m2) 05/21/18 07:10 Glucose 123 mg/dL (70-100) H 05/21/18 07:10 Lactate 0.6 mmol/L (0.6-1.4) 05/21/18 07:10 Calcium 7.7 mg/dL (8.5-10.1) L 05/21/18 07:10 Magnesium 2.2 mg/dL (1.8-2.4) 05/21/18 07:10 Total Bilirubin 0.7 mg/dL (0.2-1.0) 05/21/18 07:10 Conjugated Bilirubin 0.25 mg/dL (0.00-0.20) H 05/21/18 07:10 AST 171 U/L (15-37) H 05/21/18 07:10 ALT 207 U/L (12-78) H 05/21/18 07:10 Alkaline Phosphatase 130 U/L (46-116) H 05/21/18 07:10 Troponin I < 0.02 ng/mL (0.00-0.06) 05/20/18 09:30 Total Protein 6.6 g/dL (6.4-8.2) 05/21/18 07:10 Albumin 2.7 g/dL (3.4-5.0) L 05/21/18 07:10 Lipase > 36430 U/L (73-393) H 05/20/18 09:30 Patient ABO/Rh O Negative 05/20/18 09:30 Antibody Screen Negative 05/20/18 09:30
--- NOTE | 2018-05-21 18:26 | W.PM.DS.N ---
Date of service: 05/21/18 Time of Service: 18:26 DS: Diagnosis Discharge Diagnosis (1) Choledocholithiasis: Status: Acute (2) Pancreatitis, acute: Status: Acute (3) Cholecystitis: Status: Acute (4) COPD with acute exacerbation: Status: Acute (5) Community acquired pneumonia: Status: Acute (6) Hemoptysis: Status: Acute (7) Status post laryngectomy: Status: Acute (8) Primary pulmonary hypertension: Status: Acute (9) GERD (gastroesophageal reflux disease): Status: Chronic (10) AAA (abdominal aortic aneurysm): Status: Acute (11) PAD (peripheral artery disease): Status: Acute Asessment and Plan: R common iliac artery occlusion (12) Chronic respiratory failure with hypoxia: Status: Acute Discharge Plan Disposition Patient Disposition: [facility] [place] Condition: Serious Discharge Details Reason For Visit: CHOLEDOCHOLITHIASIS, CHOLANGITIS Admit Date/Time: 05/20/18 13:29 Admit Provider: Tosin Collier Attending Provider: Tosin Collier Primary Care Provider: Wyatt Arnett Hospital Course Hospital Course: Mr Barbosa is a 62 year old male with PMHx of laryngeal mass s/p tracheotomy, chronic hypoxic respiratory failure on 28% FiO2 via mist collar, AAA, COPD, pulmonary hypertension, who was admitted to [facility] on 05/20/18 while pending a bed at [facility] for choledocholithiasis, suspected impending cholangitis, cholecystitis, gallstone pancreatitis, CAP with hemoptysis and acute exacerbation of COPD. Neither [facility] nor [facility] did not have any medical beds, but GI at [facility] was consulted, and the case was discussed several times with Dr Aldridge. At the time, it was felt that the patient likely already passed the stone as his total bilirubin was only marginally elevated, but his clinical course would need to be monitored overnight. He was initiated on zosyn for treatment of both his choledocholithiasis/cholecystitis and the pneumonia (in addition to steroids), and we were asked to admit the patient. Concurrently, the patient was accepted at [facility] by Dr Columba Brandon, pending a bed. Overnight, the patient improved significantly, with T bili normalizing, leucocytosis improving and abdominal pain nearly resolving. The patient was evaluated by general surgery at [facility] and, it was felt, that this patient would require a cholecystectomy, for which he would be considered too high of a surgical risk at [facility] due to presence of a AAA as well as with his history of tracheotomy and pulmonary hypertension. He would benefit from a pulmonary consultation for his pneumonia with mild hemoptysis upon arrival to [facility]. 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 It is recommended that he have a vascular surgery evaluation for this finding while at [facility]. Patient is hemodynamically stable for transfer and consents. Home Meds and New Rx's Prescriptions: New acetaminophen [Tylenol] 325 mg Tablet 650 mg PO Q4H PRN PRNQty: 0 RF: 0 albuterol sulfate 2.5 mg /3 mL (0.083 %) Solution For Nebulization 2.5 mg UPD Q2H PRN PRNQty: 0 RF: 0 docusate sodium [Colace] 100 mg Capsule 100 mg PO TID PRN PRNQty: 0 RF: 0 alum-mag hydroxide-simeth [Mag-Al Plus] 200-200-20 mg/5 mL Suspension 30 ml PO Q2H PRN PRNQty: 0 RF: 0 heparin (porcine) 5,000 unit/mL Solution 5,000 units subcut Q8H Qty: 0 RF: 0 melatonin 3 mg Tablet Extended Release 6 mg PO HS Qty: 0 RF: 0 guaifenesin [Mucinex] 600 mg Tablet Extended Release 12hr 600 mg PO BID Qty: 0 RF: 0 morphine 4 mg/mL Solution 3 mg IVP Q4H PRN PRNQty: 0 RF: 0 pantoprazole [Protonix] 40 mg Recon Soln 40 mg IVP 0800 Qty: 0 RF: 0 ondansetron HCl (PF) 4 mg/2 mL Solution 4 mg IVP Q6H PRN PRNQty: 0 RF: 0 zolpidem 5 mg Tablet 5 mg PO HS PRN MAY REPEAT X1 PRNQty: 0 RF: 0 piperacillin-tazobactam [Zosyn] 3.375 gram recon soln 3.375 gm IV Q6H Qty: 10 RF: 0 Continued ProAir HFA 90 mcg/actuation HFA aerosol inhaler 2 puff Inhalation Q6H PRN Qty: 3 RF: 3 Advair HFA 115-21 mcg/actuation HFA aerosol inhaler 2 puff Inhalation BID Qty: 3 RF: 4 Oxygen EACH Inhalation IN THE DAYTIME Qty: 0.5 RF: 0 omeprazole 20 MG capsule,delayed release(DR/EC) 20 mg PO DAILY Qty: 90 RF: 4 ipratropium-albuterol 0.5 mg-3 mg(2.5 mg base)/3 mL solution for nebulization 3 ml UPD QID Qty: 50 RF: 2 magnesium oxide 400 mg (241.3 mg magnesium) tablet 400 mg PO HS Qty: 90 RF: 4 Discontinued levofloxacin 500 mg tablet 500 mg PO DAILY Qty: 10 RF: 0 Atrovent HFA 17 mcg/actuation HFA aerosol inhaler 1 puff IH QID Qty: 12.9 RF: 5 aspirin [Aspirin Low-Strength] 81 MG tablet,chewable 81 mg PO DAILY RF: 0 No Action Oxygen EACH Inhalation NIGHTLY Qty: 1 RF: 0 Discharge Instructions Activity:: Activity as Tolerated Equipment/Supplies:: 28% FiO2 via mist collar Diet:: NPO Discharge Orders Discharge Orders: Discharge Order (Routine); Ordered 05/21/18 Ordered By: Tosin Collier Exam Narrative Exam Narrative: General: A&Ox3, NAD HEENT: Tracheotomy patent; no obvious discharge seen, MMM Heart: RRR, no m/r/g Lungs: Quiet wheezing R posterior lung field on expiration GI: abdomen soft, minimally tender in epigastrium/RUQ Extremities; no e/c/c BLE's; both LE's are cool, trace pedal pulses in BLE's DS: Data Vitals/I&O Vitals and I&O: Vital Signs Temperature 36.4 C L 05/21/18 16:45 Temperature Source Tympanic 05/21/18 16:45 Pulse 96 H 05/21/18 17:28 Pulse Rhythm Regular 05/21/18 16:00 Respiratory Rate 18 05/21/18 17:28 Respiratory Effort 05/21/18 16:00 Respiratory Depth Normal 05/21/18 16:00 Respiratory Pattern Tachypnea 05/21/18 16:00 Blood Pressure 145/88 H 05/21/18 16:45 Pulse Oximetry 98 05/21/18 17:28 Oxygen Delivery Method Trach Collar 05/21/18 17:28 Oxygen Flow Rate 0 05/21/18 16:45 Fraction of Inspired Oxygen (FIO2) 28 05/21/18 17:28 Pain Level 0 05/20/18 15:47 Comment 05/21/18 11:17 Intake & Output 05/20/18 05/21/18 05/21/18 23:59 11:59 23:59 Intake Total 3232.916 / 3232.916 2630 / 3150.000 520.000 / 3150.000 Output Total 1075 / 1075 2300 / 2300 Balance 2157.916 / 2157.916 330 / 850.000 520.000 / 850.000 Weight 99.337 kg Intake: IV 3157.916 / 3157.916 2630 / 3150.000 520.000 / 3150.000 Oral 75 / 75 0 / 0 Output: Urine 1075 / 1075 2300 / 2300 Other: Urine Color Yellow Yellow Urine Appearance Clear Clear Urine Odor None Voiding Methods Urinal Urinal Completed studies during hospitalization [Text1]: CT Chest: IMPRESSION: 1. Nodular opacities seen in the right upper, right middle and right lower lobes suspicious for infectious process. 2. Right pulmonary nodules, the largest is in the right upper lobe. These are new compared to prior examinations. The most recent being 07/09/17. Mass/metastatic disease can not be excluded. Rounded atelectasis or pneumonia should also be considered. Follow up is recommended in this patient to exclude a solid mass. A repeat CT may be considered for re-evaluation. 3. Emphysema. CT abdomen/pelvis: IMPRESSION: 1. Mild pericholecystic fluid raising the question of acute cholecystitis. Sonographic correlation should be considered. 2. 3.8 cm infrarenal abdominal aortic aneurysm. 3. 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 4. Dilated common hepatic duct up to 1.0 cm. MRI abdomen: 1. Cholelithiasis. 2. No evidence of choledocholithiasis or biliary ductal dilatation. Labs on day of discharge: Labs from last 24 hours 05/21/18 05/21/18 05/21/18 07:10 07:10 07:10 WBC 7.64 D RBC 4.09 L Hgb 12.9 L D Hct 39.6 L MCV 96.8 H MCH 31.5 MCHC 32.6 RDW 12.6 Plt Count 192 D MPV 8.5 Immature Gran % 0.0 Neutrophils % 77.0 Lymphocytes % 10.0 Monocytes % 6.0 Eosinophils % 3.0 Basophils % 0.0 Absolute Neutrophils 5.88 Absolute Lymphocytes 1.07 L Absolute Monocytes 0.46 Absolute Eosinophils 0.23 Absolute Basophils 0.00 Differential Comment Manual differential Atypical Lymphocytes 4 RBC Morphology Normal PT 11.5 H INR 1.1 Sodium Potassium Chloride Carbon Dioxide Anion Gap BUN Creatinine Estimated GFR/1.73 m2 Glucose Lactate 0.6 Calcium Magnesium Total Bilirubin Conjugated Bilirubin AST ALT Alkaline Phosphatase Total Protein Albumin 05/21/18 05/20/18 07:10 21:05 WBC RBC Hgb Hct MCV MCH MCHC RDW Plt Count MPV Immature Gran % Neutrophils % Lymphocytes % Monocytes % Eosinophils % Basophils % Absolute Neutrophils Absolute Lymphocytes Absolute Monocytes Absolute Eosinophils Absolute Basophils Differential Comment Atypical Lymphocytes RBC Morphology PT INR Sodium 141 Potassium 3.8 Chloride 103 Carbon Dioxide 33.3 H Anion Gap 4.7 BUN 11 Creatinine 0.91 Estimated GFR/1.73 m2 >= 60.00 Glucose 123 H Lactate 1.2 Calcium 7.7 L Magnesium 2.2 Total Bilirubin 0.7 Conjugated Bilirubin 0.25 H AST 171 H ALT 207 H Alkaline Phosphatase 130 H Total Protein 6.6 Albumin 2.7 L Preliminary micro results at discharge 05/20/18 11:20 Blood Culture - Preliminary Blood NO GROWTH 24 HOURS 05/20/18 11:05 Blood Culture - Preliminary Blood NO GROWTH 24 HOURS [facility] Medical History GERD (gastroesophageal reflux disease) (Chronic) COPD (chronic obstructive pulmonary disease) Malignant neoplasm of hypopharynx Pulmonary HTN Surgical History History of esophageal surgery (Inactive) Colonoscopy - MAC Status post laryngectomy Family History Mother Neoplasm Stroke Father Diabetes Heart disease Myocardial infarction Stroke Sister Neoplasm Brother Heart disease Asthma Grandfather No problems noted. Grandfather No problems noted. Grandmother Neoplasm Grandmother No problems noted. Brother No problems noted. Sister No problems noted. Sister No problems noted. Son No problems noted. Daughter No problems noted. Social History household members: other details: 2 current occupational status: disabled pets and animals: Yes pets and animals: dog(s) Smoking/Tobacco Use Status: Former Tobacco Use alcohol intake: never substance use type: does not use special eulogio needs: No
--- NOTE | 2018-05-21 18:37 | DSE_ITS ---
Date of service: 05/21/18 Time of Service: 18:26 DS: Diagnosis Discharge Diagnosis (1) Choledocholithiasis: Status: Acute (2) Pancreatitis, acute: Status: Acute (3) Cholecystitis: Status: Acute (4) COPD with acute exacerbation: Status: Acute (5) Community acquired pneumonia: Status: Acute (6) Hemoptysis: Status: Acute (7) Status post laryngectomy: Status: Acute (8) Primary pulmonary hypertension: Status: Acute (9) GERD (gastroesophageal reflux disease): Status: Chronic (10) AAA (abdominal aortic aneurysm): Status: Acute (11) PAD (peripheral artery disease): Status: Acute Asessment and Plan: R common iliac artery occlusion (12) Chronic respiratory failure with hypoxia: Status: Acute Discharge Plan Disposition Patient Disposition: [facility] [place] Condition: Serious Discharge Details Reason For Visit: CHOLEDOCHOLITHIASIS, CHOLANGITIS Admit Date/Time: 05/20/18 13:29 Admit Provider: Tosin Collier Attending Provider: Tosin Collier Primary Care Provider: Wyatt Arnett Hospital Course Hospital Course: Mr Barbosa is a 62 year old male with PMHx of laryngeal mass s/p tracheotomy, chronic hypoxic respiratory failure on 28% FiO2 via mist collar, AAA, COPD, pulmonary hypertension, who was admitted to [facility] on 05/20/18 while pending a bed at [facility] for choledocholithiasis, suspected impending cholangitis, cholecystitis, gallstone pancreatitis, CAP with hemoptysis and acute exacerbation of COPD. Neither [facility] nor [facility] did [place] have any medical beds, but GI at [facility] was consulted, and the case was discussed several times with Dr Aldridge. At the time, it was felt that the patient likely already passed the stone as his total bilirubin was only marginally elevated, but his clinical course would need to be monitored overnight. He was initiated on zosyn for treatment of both his choledocholithiasis/cholecystitis and the pneumonia (in addition to steroids), and we were asked to admit the patient. Concurrently, the patient was accepted at [facility] by Dr Columba Brandon, pending a bed. Overnight, the patient improved significantly, with T bili normalizing, leucocytosis improving and abdominal pain nearly resolving. The patient was evaluated by general surgery at [facility] and, it was felt, that this patient would require a cholecystectomy, for which he would be considered too high of a surgical risk at [facility] due to presence of a AAA as well as with his history of tracheotomy and pulmonary hypertension. He would benefit from a pulmonary consultation for his pneumonia with mild hemoptysis upon arrival to [facility]. 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 It is recommended that he have a vascular surgery evaluation for this finding while at [facility]. Patient is hemo dynamically stable for transfer and consents. Home Meds and New Rx's Prescriptions: New acetaminophen [Tylenol] 325 mg Tablet 650 mg PO Q4H PRN PRNQty: 0 RF: 0 albuterol sulfate 2.5 mg /3 mL (0.083 %) Solution For Nebulization 2.5 mg UPD Q2H PRN PRNQty: 0 RF: 0 docusate sodium [Colace] 100 mg Capsule 100 mg PO TID PRN PRNQty: 0 RF: 0 alum-mag hydroxide-simeth [Mag-Al Plus] 200-200-20 mg/5 mL Suspension 30 ml PO Q2H PRN PRNQty: 0 RF: 0 heparin (porcine) 5,000 unit/mL Solution 5,000 units subcut Q8H Qty: 0 RF: 0 melatonin 3 mg Tablet Extended Release 6 mg PO HS Qty: 0 RF: 0 guaifenesin [Mucinex] 600 mg Tablet Extended Release 12hr 600 mg PO BID Qty: 0 RF: 0 morphine 4 mg/mL Solution 3 mg IVP Q4H PRN PRNQty: 0 RF: 0 pantoprazole [Protonix] 40 mg Recon Soln 40 mg IVP 0800 Qty: 0 RF: 0 ondansetron HCl (PF) 4 mg/2 mL Solution 4 mg IVP Q6H PRN PRNQty: 0 RF: 0 zolpidem 5 mg Tablet 5 mg PO HS PRN MAY REPEAT X1 PRNQty: 0 RF: 0 piperacillin-tazobactam [Zosyn] 3.375 gram recon soln 3.375 gm IV Q6H Qty: 10 RF: 0 Continued ProAir HFA 90 mcg/actuation HFA aerosol inhaler 2 puff Inhalation Q6H PRN Qty: 3 RF: 3 Advair HFA 115-21 mcg/actuation HFA aerosol inhaler 2 puff Inhalation BID Qty: 3 RF: 4 Oxygen EACH Inhalation IN THE DAYTIME Qty: 0.5 RF: 0 omeprazole 20 MG capsule,delayed release(DR/EC) 20 mg PO DAILY Qty: 90 RF: 4 ipratropium-albuterol 0.5 mg-3 mg(2.5 mg base)/3 mL solution for nebulization 3 ml UPD QID Qty: 50 RF: 2 magnesium oxide 400 mg (241.3 mg magnesium) tablet 400 mg PO HS Qty: 90 RF: 4 Discontinued levofloxacin 500 mg tablet 500 mg PO DAILY Qty: 10 RF: 0 Atrovent HFA 17 mcg/actuation HFA aerosol inhaler 1 puff IH QID Qty: 12.9 RF: 5 aspirin [Aspirin Low-Strength] 81 MG tablet,chewable 81 mg PO DAILY RF: 0 No Action Oxygen EACH Inhalation NIGHTLY Qty: 1 RF: 0 Discharge Instructions Activity:: Activity as Tolerated Equipment/Supplies:: 28% FiO2 via mist collar Diet:: NPO Discharge Orders Discharge Orders: Discharge Order (Routine); Ordered 05/21/18 Ordered By: Tosin Collier Exam Narrative Exam Narrative: General: A&Ox3, NAD HEENT: Tracheotomy patent; no obvious discharge seen, MMM Heart: RRR, no m/r/g Lungs: Quiet wheezing R posterior lung field on expiration GI: abdomen soft, minimally tender in epigastrium/RUQ Extremities; no e/c/c BLE's; both LE's are cool, trace pedal pulses in BLE's DS: Data Vitals/I&O Vitals and I&O: Vital Signs Temperature 36.4 C L 05/21/18 16:45 Temperature Source Tympanic 05/21/18 16:45 Pulse 96 H 05/21/18 17:28 Pulse Rhythm Regular 05/21/18 16:00 Respiratory Rate 18 05/21/18 17:28 Respiratory Effort 05/21/18 16:00 Respiratory Depth Normal 05/21/18 16:00 Respiratory Pattern Tachypnea 05/21/18 16:00 Blood Pressure 145/88 H 05/21/18 16:45 Pulse Oximetry 98 05/21/18 17:28 Oxygen Delivery Method Trach Collar 05/21/18 17:28 Oxygen Flow Rate 0 05/21/18 16:45 Fraction of Inspired Oxygen (FIO2) 28 05/21/18 17:28 Pain Level 0 05/20/18 15:47 Comment 05/21/18 11:17 Intake & Output 05/20/18 05/21/18 05/21/18 23:59 11:59 23:59 Intake Total 3232.916 / 3232.916 2630 / 3150.000 520.000 / 3150.000 Output Total 1075 / 1075 2300 / 2300 Balance 2157.916 / 2157.916 330 / 850.000 520.000 / 850.000 Weight 99.337 kg Intake: IV 3157.916 / 3157.916 2630 / 3150.000 520.000 / 3150.000 Oral 75 / 75 0 / 0 Output: Urine 1075 / 1075 2300 / 2300 Other: Urine Color Yellow Yellow Urine Appearance Clear Clear Urine Odor None Voiding Methods Urinal Urinal Completed studies during hospitalization [Text1]: CT Chest: IMPRESSION: 1. Nodular opacities seen in the right upper, right middle and right lower lobes suspicious for infectious process. 2. Right pulmonary nodules, the largest is in the right upper lobe. These are new compared to prior examinations. The most recent being 07/09/17. Mass/metastatic disease can not be excluded. Rounded atelectasis or pneumonia should also be considered. Follow up is recommended in this patient to exclude a solid mass. A repeat CT may be considered for re-evaluation. 3. Emphysema. CT abdomen/pelvis: IMPRESSION: 1. Mild pericholecystic fluid raising the question of acute cholecystitis. Sonographic correlation should be considered. 2. 3.8 cm infrarenal abdominal aortic aneurysm. 3. 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 4. Dilated common hepatic duct up to 1.0 cm. MRI abdomen: 1. Cholelithiasis. 2. No evidence of choledocholithiasis or biliary ductal dilatation. Labs on day of discharge: Labs from last 24 hours 05/21/18 05/21/18 05/21/18 07:10 07:10 07:10 WBC 7.64 D RBC 4.09 L Hgb 12.9 L D Hct 39.6 L MCV 96.8 H MCH 31.5 MCHC 32.6 RDW 12.6 Plt Count 192 D MPV 8.5 Immature Gran % 0.0 Neutrophils % 77.0 Lymphocytes % 10.0 Monocytes % 6.0 Eosinophils % 3.0 Basophils % 0.0 Absolute Neutrophils 5.88 Absolute Lymphocytes 1.07 L Absolute Monocytes 0.46 Absolute Eosinophils 0.23 Absolute Basophils 0.00 Differential Comment Manual differential Atypical Lymphocytes 4 RBC Morphology Normal PT 11.5 H INR 1.1 Sodium Potassium Chloride Carbon Dioxide Anion Gap BUN Creatinine Estimated GFR/1.73 m2 Glucose Lactate 0.6 Calcium Magnesium Total Bilirubin Conjugated Bilirubin AST ALT Alkaline Phosphatase Total Protein Albumin 05/21/18 05/20/18 07:10 21:05 WBC RBC Hgb Hct MCV MCH MCHC RDW Plt Count MPV Immature Gran % Neutrophils % Lymphocytes % Monocytes % Eosinophils % Basophils % Absolute Neutrophils Absolute Lymphocytes Absolute Monocytes Absolute Eosinophils Absolute Basophils Differential Comment Atypical Lymphocytes RBC Morphology PT INR Sodium 141 Potassium 3.8 Chloride 103 Carbon Dioxide 33.3 H Anion Gap 4.7 BUN 11 Creatinine 0.91 Estimated GFR/1.73 m2 >= 60.00 Glucose 123 H Lactate 1.2 Calcium 7.7 L Magnesium 2.2 Total Bilirubin 0.7 Conjugated Bilirubin 0.25 H AST 171 H ALT 207 H Alkaline Phosphatase 130 H Total Protein 6.6 Albumin 2.7 L Preliminary micro results at discharge 05/20/18 11:20 Blood Culture - Preliminary Blood NO GROWTH 24 HOURS 05/20/18 11:05 Blood Culture - Preliminary Blood NO GROWTH 24 HOURS [facility] Medical History GERD (gastroesophageal reflux disease) (Chronic) COPD (chronic obstructive pulmonary disease) Malignant neoplasm of hypopharynx Pulmonary HTN Surgical History History of esophageal surgery (Inactive) Colonoscopy - MAC Status post laryngectomy Family History Mother Neoplasm Stroke Father Diabetes Heart disease Myocardial infarction Stroke Sister Neoplasm Brother Heart disease Asthma Grandfather No problems noted. Grandfather No problems noted. Grandmother Neoplasm Grandmother No problems noted. Brother No problems noted. Sister No problems noted. Sister No problems noted. Son No problems noted. Daughter No problems noted. Social History household members: other details: 2 current occupational status: disabled pets and animals: Yes pets and animals: dog(s) Smoking/Tobacco Use Status: Former Tobacco Use alcohol intake: never substance use type: does not use special eulogio needs: No
== END 2018-05-21 19:05 | DRG 444 ==
LOC: ER 14:03 → MS 15:27
PROVIDERS: Nurse Practitioner Acute Care; Student in an Organized Health Care Education/Training Program; Admitting Provider Internal Medicine; Emergency Provider Physician Assistant; PCP Family Medicine; Visit Provider Internal Medicine
DX: K80.40 Calculus of bile duct with cholecystitis, unspecified, without obstruction (principal); K85.10 Biliary acute pancreatitis without necrosis or infection; J18.9 Pneumonia, unspecified organism; J44.0 Chronic obstructive pulmonary disease with (acute) lower respiratory infection; R04.2 Hemoptysis; I27.0 Primary pulmonary hypertension; I73.9 Peripheral vascular disease, unspecified; K21.9 Gastro-esophageal reflux disease without esophagitis; I74.5 Embolism and thrombosis of iliac artery; J96.11 Chronic respiratory failure with hypoxia; I71.4 Abdominal aortic aneurysm, without rupture; Z87.891 Personal history of nicotine dependence; Z90.02 Acquired absence of larynx; Z93.0 Tracheostomy status
CPT/HCPCS: 36415; 80048; 80053; 80076; 83690; 86850; 86900; 86901; 87040; 94640; 96361; 96365; 96375; 99223; 99232; 99239; 99254; 99285; 71260; 74160; 74181; 83605; 83735; 84484; 85025; 85610; J1644; J2543; J3490; J7512; J7620

== ENCOUNTER 2018-09-15 09:22 | Emergency (ER) | payer MEDICAID, SELFPAY ==
[2018-09-15] VITALS (39 sets, daily range): BP systolic 90–146; BP diastolic 56–84; PULSE 86–111; RESP 4–29; TEMP 36.8; O2SAT 91–99
--- NOTE | 2018-09-15 09:27 | NUR.NOTE ---
pt states that he has been experiencing shortness of breath for the past 2 days. pt states history of COPD and exacerbations in the past o2 on room air at admit was 77
--- NOTE | 2018-09-15 09:42 | ED.GENADUL_ITS ---
Discharge Plan Disposition Patient Disposition: HOME Discharge Details Chief Complaint: SOB Clinical Impression: COPD (chronic obstructive pulmonary disease), Pneumonia Primary Care Provider: Wyatt Arnett ED Provider: Isiah Mcdaniels Home Meds and New Rx's Prescriptions: New azithromycin 250 mg tablet 250 mg PO DAILY 4 Days Qty: 4 RF: 0 prednisone 20 mg tablet 60 mg PO DAILY 5 Days Qty: 15 RF: 0 Continued omeprazole 40 mg capsule,delayed release(DR/EC) 40 mg PO DAILY RF: 0 Atrovent HFA 17 mcg/actuation HFA aerosol inhaler 1 puff IH QID PRN (Reason: shortness of breath or wheezing) Qty: 12.9 RF: 4 ipratropium-albuterol 0.5 mg-3 mg(2.5 mg base)/3 mL solution for nebulization 3 ml UPD QID Qty: 50 RF: 4 albuterol sulfate [ProAir HFA] 90 mcg/actuation HFA aerosol inhaler 2 puff Inhalation Q6H PRN Qty: 3 RF: 3 Advair HFA 115-21 mcg/actuation HFA aerosol inhaler 2 puff Inhalation BID Qty: 3 RF: 4 Oxygen EACH Inhalation IN THE DAYTIME Qty: 0.5 RF: 0 Oxygen EACH Inhalation NIGHTLY Qty: 1 RF: 0 magnesium oxide 400 mg (241.3 mg magnesium) tablet 400 mg PO HS Qty: 90 RF: 4 acetaminophen [Tylenol] 325 mg Tablet 650 mg PO Q4H PRN PRNQty: 0 RF: 0 albuterol sulfate 2.5 mg /3 mL (0.083 %) Solution For Nebulization 2.5 mg UPD Q2H PRN PRNQty: 0 RF: 0 docusate sodium [Colace] 100 mg Capsule 100 mg PO TID PRN PRNQty: 0 RF: 0 alum-mag hydroxide-simeth [Mag-Al Plus] 200-200-20 mg/5 mL Suspension 30 ml PO Q2H PRN PRNQty: 0 RF: 0 melatonin 3 mg Tablet Extended Release 6 mg PO HS Qty: 0 RF: 0 guaifenesin [Mucinex] 600 mg Tablet Extended Release 12hr 600 mg PO BID Qty: 0 RF: 0 morphine 4 mg/mL Solution 3 mg IVP Q4H PRN PRNQty: 0 RF: 0 zolpidem 5 mg Tablet 5 mg PO HS PRN MAY REPEAT X1 PRNQty: 0 RF: 0 Discharge Instructions Instructions: Pneumonia (ED) Additional Instructions: He was seen in the emergency department for COPD exacerbation with suspected pneumonia. Antibiotics were given here however a prescription for both antibiotics and steroids sent with you today. You must fill these and take them to their completion. You must return to the emergency department should your symptoms worsen or you find that you are requiring more oxygen at home. Referrals: Wyatt Arnett MD [Primary Care Provider] - 5 days Medical Decision Making <KEENA Barksdale - Last Filed: 09/15/18 13:51> Patient is a 62-year-old male presenting to the emergency department for apparent COPD exacerbation along with possible right lower lobe pneumonia. Initial sats were 77% on room air. He is on 3 L O2 at baseline. Symptoms improved dramatically status post DuoNeb followed by 1 hour continuous albuterol neb here. Chest x-ray concerning for right lower lobe infiltrate. Blood cultures x2 sent followed by azithromycin 500 mg and ceftriaxone 1 g IV. VBG shows mild hypercapnia at 58. Respiratory rate has reduced to 18 breaths/min. Lungs sounds cleared with post residual expiratory wheeze. Ambulatory sats on baseline 3 L oxygen maintained at 92%. Port score based on clinical presentation and labs here is 74. We discussed admission versus outpatient therapy with strict return precautions outlined. He would prefer discharge at this time. Plan will be to send home with a 5-day course of azithromycin. He will return should symptoms worsen Lab Data 09/15/18 11:10 Blood Blood Culture - Pending 09/15/18 11:00 Blood Blood Culture - Pending Laboratory Tests Range/Units 09/15/18 09/15/18 09/15/18 09:38 09:38 09:38 WBC (4.4-10.8) k/cumm 8.68 RBC (4.50-6.00) m/cumm 4.51 Hgb (13.5-17.5) g/dL 13.9 Hct (40.0-50.0) % 41.4 MCV (80-95) fL 91.8 MCH (27.0-33.0) pg 30.8 MCHC (32.0-36.0) g/dL 33.6 RDW (11.8-14.1) % 13.7 Plt Count (130-400) x1000/uL 197 MPV (8.0-11.0) fL 8.9 Immature Gran % See Differential Neutrophils % 78.0 Lymphocytes % 12.0 Atypical Lymphs % 3 Monocytes % 7.0 Eosinophils % 0.0 Basophils % 0.0 Absolute Neutrophils (1.2-6.7) k/cumm 6.77 H Absolute Lymphocytes (1.2-3.4) k/cumm 1.30 Absolute Monocytes (0.11-0.7) k/cumm 0.61 Absolute Eosinophils (0.0-0.7) k/cumm 0.00 Absolute Basophils (0.0-0.2) k/cumm 0.00 Differential Comment Manual differential RBC Morphology Normal VBG pH (7.32-7.43) VBG pCO2 (34-47) mm/Hg VBG pO2 (28-44) mm/Hg VBG HCO3 (22-28) mmol/L VBG Total CO2 (22-29) mmol/L VBG O2 Saturation (70-80) % VBG Base Excess (-3-3) mmol/L Sodium (136-145) mmol/L 136 Potassium (3.5-5.1) mmol/L 3.4 L Chloride (98-107) mmol/L 96 L Carbon Dioxide (21.0-32.0) mmol/L 32.9 H Anion Gap (3-11) mmol/L 7.1 BUN (7-18) mg/dL 17 Creatinine (0.70-1.30) mg/dL 0.92 Estimated GFR/1.73 m2 (mL/min/1.73m2) >= 60.00 Glucose (70-100) mg/dL 134 H Lactate (0.6-1.4) mmol/l 1.4 Calcium (8.5-10.1) mg/dL 8.4 L Magnesium (1.8-2.4) mg/dL 2.4 Total Bilirubin (0.2-1.0) mg/dL 1.1 H AST (15-37) U/L 37 ALT (12-78) U/L 58 Alkaline Phosphatase (46-116) U/L 150 H Troponin I (0.00-0.06) ng/mL < 0.02 Total Protein (6.4-8.2) g/dL 8.4 H Albumin (3.4-5.0) g/dL 3.2 L Range/Units 09/15/18 09:38 WBC (4.4-10.8) k/cumm RBC (4.50-6.00) m/cumm Hgb (13.5-17.5) g/dL Hct (40.0-50.0) % MCV (80-95) fL MCH (27.0-33.0) pg MCHC (32.0-36.0) g/dL RDW (11.8-14.1) % Plt Count (130-400) x1000/uL MPV (8.0-11.0) fL Immature Gran % Neutrophils % Lymphocytes % Atypical Lymphs % Monocytes % Eosinophils % Basophils % Absolute Neutrophils (1.2-6.7) k/cumm Absolute Lymphocytes (1.2-3.4) k/cumm Absolute Monocytes (0.11-0.7) k/cumm Absolute Eosinophils (0.0-0.7) k/cumm Absolute Basophils (0.0-0.2) k/cumm Differential Comment RBC Morphology VBG pH (7.32-7.43) 7.38 VBG pCO2 (34-47) mm/Hg 58 H VBG pO2 (28-44) mm/Hg 27 L VBG HCO3 (22-28) mmol/L 34 H VBG Total CO2 (22-29) mmol/L 31 H VBG O2 Saturation (70-80) % 49 L VBG Base Excess (-3-3) mmol/L 9.4 H Sodium (136-145) mmol/L Potassium (3.5-5.1) mmol/L Chloride (98-107) mmol/L Carbon Dioxide (21.0-32.0) mmol/L Anion Gap (3-11) mmol/L BUN (7-18) mg/dL Creatinine (0.70-1.30) mg/dL Estimated GFR/1.73 m2 (mL/min/1.73m2) Glucose (70-100) mg/dL Lactate (0.6-1.4) mmol/l Calcium (8.5-10.1) mg/dL Magnesium (1.8-2.4) mg/dL Total Bilirubin (0.2-1.0) mg/dL AST (15-37) U/L ALT (12-78) U/L Alkaline Phosphatase (46-116) U/L Troponin I (0.00-0.06) ng/mL Total Protein (6.4-8.2) g/dL Albumin (3.4-5.0) g/dL ECG Data Interpretation: Sinus rhythm with a heart rate of 95. Negative for ST elevation SD. <Jarad Murillo MD - Last Filed: 09/15/18 09:49> ECG Data Attestation: I personally reviewed and interpreted this ECG (s) as follows: Prior ECG tracings: not available for review Interpretation: sinus rhythm, rate of 96, pr 154, qtc 435 HPI <KEENA Barksdale - Last Filed: 09/15/18 13:51> General Date/Time Provider Initiated Documentation: 09/15/18 09:28 . 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 He admits to a 2-day history of shortness of breath. Brown/bloody sputum production. Room air sats here on arrival were 77%. He is on home oxygen. He admits to doing a nebulizer treatment at home prior to arrival. He denies any chest pain. No fevers here. Related Data Home Medications Medication Instructions Recorded Confirmed Oxygen l INHALATION IN THE DAYTIME #0.5 05/13/13 09/07/18 Oxygen l INHALATION NIGHTLY #1 05/13/13 09/07/18 magnesium oxide 400 mg (241.3 mg 400 mg PO HS #90 tab 03/01/18 09/07/18 magnesium) tablet albuterol sulfate HFA 90 2 puff INHALATION Q6H PRN #3 03/30/18 09/07/18 mcg/actuation aerosol inhaler inhaler fluticasone propionate-salmeterol 2 puff INHALATION BID #3 inhaler 03/30/18 09/07/18 115 mcg-21 mcg/actuation HFA inhaler acetaminophen [Tylenol] 650 mg PO Q4H PRN PRN #0 tab 05/21/18 09/07/18 albuterol sulfate 2.5 mg UPD Q2H PRN PRN #0 ml 05/21/18 09/07/18 alum-mag hydroxide-simeth [Mag-Al 30 ml PO Q2H PRN PRN #0 ml 05/21/18 09/07/18 Plus] docusate sodium [Colace] 100 mg PO TID PRN PRN #0 cap 05/21/18 09/07/18 guaifenesin [Mucinex] 600 mg PO BID #0 tab 05/21/18 09/07/18 melatonin 6 mg PO HS #0 tab 05/21/18 09/07/18 morphine 3 mg IVP Q4H PRN PRN #0 ml 05/21/18 09/07/18 zolpidem 5 mg PO HS PRN MAY REPEAT X1 PRN 05/21/18 09/07/18 #0 tab ipratropium bromide 17 1 puff IH QID PRN #12.9 gm 09/07/18 09/07/18 mcg/actuation HFA aerosol inhaler ipratropium-albuterol 0.5 mg-3 3 ml UPD QID #50 vial 09/07/18 09/07/18 mg(2.5 mg base)/3 mL nebulization soln omeprazole 40 mg capsule,delayed 40 mg PO DAILY 09/07/18 09/07/18 release azithromycin 250 mg PO DAILY 4 Days #4 tab 09/15/18 prednisone 60 mg PO DAILY 5 Days #15 tab 09/15/18 Previous Rx's Medication Instructions Recorded magnesium oxide 400 mg (241.3 mg 400 mg PO HS #90 tab 03/01/18 magnesium) tablet albuterol sulfate HFA 90 2 puff INHALATION Q6H PRN #3 03/30/18 mcg/actuation aerosol inhaler inhaler fluticasone propionate-salmeterol 2 puff INHALATION BID #3 inhaler 03/30/18 115 mcg-21 mcg/actuation HFA inhaler acetaminophen [Tylenol] 650 mg PO Q4H PRN PRN #0 tab 05/21/18 albuterol sulfate 2.5 mg UPD Q2H PRN PRN #0 ml 05/21/18 alum-mag hydroxide-simeth [Mag-Al 30 ml PO Q2H PRN PRN #0 ml 05/21/18 Plus] docusate sodium [Colace] 100 mg PO TID PRN PRN #0 cap 05/21/18 guaifenesin [Mucinex] 600 mg PO BID #0 tab 05/21/18 melatonin 6 mg PO HS #0 tab 05/21/18 morphine 3 mg IVP Q4H PRN PRN #0 ml 05/21/18 zolpidem 5 mg PO HS PRN MAY REPEAT X1 PRN 05/21/18 #0 tab ipratropium bromide 17 1 puff IH QID PRN #12.9 gm 09/07/18 mcg/actuation HFA aerosol inhaler ipratropium-albuterol 0.5 mg-3 3 ml UPD QID #50 vial 09/07/18 mg(2.5 mg base)/3 mL nebulization soln azithromycin 250 mg PO DAILY 4 Days #4 tab 09/15/18 prednisone 60 mg PO DAILY 5 Days #15 tab 09/15/18 Allergies Allergy/AdvReac Type Severity Reaction Status Date / Time Influenza Virus Vaccines Allergy Severe Verified 09/07/18 15:04 pneumococcal vaccine Allergy Severe swells up Verified 09/07/18 15:04 General Stated Complaint: SOB CIERRA: 3 Review of Systems <KEENA Barksdale - Last Filed: 09/15/18 13:51> Constitutional Denies body ache(s), Denies chills, Denies fever(s), Reports malaise and Denies night sweats Eyes Reports as per HPI ENT Denies sinus pain, Denies sore throat and Denies throat swelling Cardiovascular Denies chest pain, Denies chest pain at rest, Denies chest pain with activity, Denies diaphoresis, Denies syncope, Denies rapid heart rate, Denies pedal edema, Denies leg edema, Denies lightheadedness, Denies palpitations, Reports dyspnea, Reports dyspnea on exertion, Denies orthopnea and Denies paroxysmal nocturnal dyspnea Respiratory Reports dyspnea and Reports dyspnea on exertion Gastrointestinal Denies nausea and Denies vomiting Musculoskeletal Denies back pain, Denies myalgias and Denies deformity Neurologic Denies syncope Endocrine Denies palpitations Allergic/Immunologic Denies throat swelling PFSH <KEENA Barksdale - Last Filed: 09/15/18 13:51> Medical History GERD (gastroesophageal reflux disease) (Chronic) Acute respiratory failure (Resolved 07/01/13) Cholecystitis (Resolved) Choledocholithiasis (Resolved) Community acquired pneumonia (Resolved) Hemoptysis (Resolved) Pancreatitis, acute (Resolved) Tobacco use (Resolved) COPD (chronic obstructive pulmonary disease) Malignant neoplasm of hypopharynx Pulmonary HTN Surgical History History of esophageal surgery (Inactive) Colonoscopy - MAC Status post laryngectomy Family History Mother Neoplasm Stroke Father Diabetes Heart disease Myocardial infarction Stroke Sister Neoplasm Brother Heart disease Asthma Grandfather No problems noted. Grandfather No problems noted. Grandmother Neoplasm Grandmother No problems noted. Brother No problems noted. Sister No problems noted. Sister No problems noted. Son No problems noted. Daughter No problems noted. Social History Smoking/Tobacco Use Status: Former Tobacco Use Alcohol Intake: never Drug use: Never Substance use type: does not use Household members: other Details: 2 Pets and animals: Yes Pets and animals: dog(s) What type of physical activity do you participate in: none Special eulogio needs: No Do you feel safe at home: Yes Do you feel safe in your relationship?: Yes Exam <KEENA Barksdale - Last Filed: 09/15/18 13:51> Const General: cooperative and in distress mild and respiratory Nutritional Appearance: average body habitus Orientation: alert and awake [facility] Head: normal to inspection General nose exam: external nose normal Face and sinus: normal facial exam Mouth: lip normal Throat: other (Small tracheostomy present) Eyes General: appearance normal, both eyes and all related structures Pupils: PERRL EOM: EOM intact bilaterally Neck Other: Small patent tracheostomy noted Chest Chest: normal inspection of the chest and normal palpation of entire chest wall Resp Effort & Inspection: audible wheezes Auscultation: diminished lung sounds and wheezes expiratory wheezes and scattered wheezes Cardio Jugular venous pressure: no JVD Palpation: normal PMI Rate: tachycardic Rhythm: regular rhythm Heart Sounds: S1 normal and S2 normal Pulses: normal peripheral pulses GI Inspection: normal to inspection Palpation: soft and no hepatosplenomegaly Back/Spine/Pelvis Back: no CVA tenderness Skin General skin exam: no rashes or lesions noted and pallor Neuro General: alert, awake and oriented x3 Course <KEENA Barksdale - Last Filed: 09/15/18 13:51> Vital Signs Temperature 36.8 C 09/15/18 09:29 Pulse 94 H 09/15/18 09:29 Respiratory Rate 29 H 09/15/18 09:29 Blood Pressure 135/84 09/15/18 09:29 Pulse Oximetry 98 09/15/18 09:29 Temperature 36.8 C 09/15/18 09:29 Temperature Source Skin 09/15/18 09:29 Pulse 94 H 09/15/18 09:29 Respiratory Rate 29 H 09/15/18 09:29 Blood Pressure 135/84 09/15/18 09:29 Blood Pressure Position Sitting 09/15/18 09:29 Pulse Oximetry 98 09/15/18 09:29 Oxygen Delivery Method OxyMask 09/15/18 09:29 Oxygen Flow Rate 10 09/15/18 09:29 Pain Level 0 09/15/18 09:29
[2018-09-15 09:50] LABS: BE (Venous) 9.4 mmol/L (-3-3); HCO3 (Venous) 34 mmol/L (22-28); O2 Sat (Venous) 49 % (70-80); TCO2 (Venous) 31 mmol/L (22-29); pCO2 (Venous) 58 mm/Hg (34-47); pH (Venous) 7.38 (7.32-7.43); pO2 (Venous) 27 mm/Hg (28-44)
[2018-09-15] MEDS: Albuterol/Ipratropium 3 ML UPD VIAL UPD (09:50)
[2018-09-15] MEDS: methylPREDNISolone SUCC 125 MG VIAL IVP (09:50)
[2018-09-15] MEDS: Lactated Ringers 500 ML IV (09:50)
[2018-09-15 09:53] LABS: Lactate-non-spesis 1.4 mmol/l (0.6-1.4)
[2018-09-15 09:56] LABS: Abs Immature Grans 0.03 k/cumm (0.0-0.09); HCT 41.4 % (40.0-50.0); HGB 13.9 g/dL (13.5-17.5); Mean Corp. HGB Concentration 33.6 g/dL (32.0-36.0); Mean Corpuscular Hemoglobin 30.8 pg (27.0-33.0); Mean Corpuscular Volume 91.8 fL (80-95); Mean Platelet Volume 8.9 fL (8.0-11.0); Platelet Count 197 x1000/uL (130-400); RBC 4.51 m/cumm (4.50-6.00); RBC Distribution Width 13.7 % (11.8-14.1); White Blood Cell Count 8.68 k/cumm (4.4-10.8)
[2018-09-15 10:10] LABS: ALT 58 U/L (12-78); AST 37 U/L (15-37); Albumin 3.2 g/dL (3.4-5.0); Alkaline Phosphatase 150 U/L (46-116); Anion Gap 7.1 mmol/L (3-11); BUN 17 mg/dL (7-18); Bilirubin, Total 1.1 mg/dL (0.2-1.0); CO2 32.9 mmol/L (21.0-32.0); CREATININE 0.92 mg/dL (0.70-1.30); Calcium 8.4 mg/dL (8.5-10.1); Chloride 96 mmol/L (98-107); Glucose 134 mg/dL (70-100); Magnesium 2.4 mg/dL (1.8-2.4); Potassium 3.4 mmol/L (3.5-5.1); Sodium 136 mmol/L (136-145); Total Protein 8.4 g/dL (6.4-8.2)
[2018-09-15 10:11] LABS: Troponin I < 0.02 ng/mL (0.00-0.06)
[2018-09-15 10:23] LABS: Absolute Monocyte Count 0.61 k/cumm (0.11-0.7); Absolute Neutrophil Count 6.77 k/cumm (1.2-6.7); Atypical Lymphocytes % 3
[2018-09-15 10:24] LABS: Diff Comment Manual Differential; RBC Morphology Normal
--- NOTE | 2018-09-15 10:27 | DI.RAD_ITS ---
SYMPTOM/DIAGNOSIS: SOB, SPUTUM PRODUCTION, WHEEZING PA AND LATERAL CHEST: The examination is compared with previous examination of 05/16/18. Heart is enlarged. There is apparent slight increase in pulmonary interstitial markings in comparison with the previous examination raising the possibility of mild CHF. No pleural effusion is seen. There is also some question of asymmetry of intrapulmonary radiodensities which could represent superimposed pneumonia, left perihilar and right basilar. CONCLUSION: Question of CHF and/or infectious process. Appropriate follow up studies requested.
--- NOTE | 2018-09-15 11:16 | DI.VRAD_ITS ---
EXAM: XR Chest, 2 Views EXAM DATE/TIME: 09/15/2018 9:32 AM CLINICAL HISTORY: 62 years old, male; Signs and symptoms; Other: SOB, sputum production, wheezing TECHNIQUE: Imaging protocol: XR of the chest, 2 views. COMPARISON: CR XR CHEST 2V PA LATERAL 05/16/2018 3:57 PM FINDINGS: Lungs: Left perihilar opacity and right basilar opacity may represent atelectasis or pneumonia. Pleural space: Unremarkable. No pleural effusion. No pneumothorax. Heart/Mediastinum: Cardiomegaly and mild vascular prominence may represent interstitial edema. Bones/joints: Stable IMPRESSION: 1. Cardiomegaly and mild vascular prominence may represent interstitial edema. 2. Left perihilar opacity and right basilar opacity may represent atelectasis or pneumonia. Dictated and Authenticated by: Reji Smith MD. Ordering:MARYAN Joyce MD
[2018-09-15] MEDS: AZITHROMYCIN 500 MG in Normal Saline 250 ML 250 MG IVPB (11:38)
[2018-09-15] MEDS: cefTRIAXone 1 GM/50 ML BAG IVPB (12:50)
--- NOTE | 2018-09-15 13:38 | ED.GENADUL_ITS ---
Discharge Plan Disposition Patient Disposition: HOME Discharge Details Chief Complaint: SOB Clinical Impression: COPD (chronic obstructive pulmonary disease), Pneumonia Primary Care Provider: Wyatt Arnett ED Provider: Isiah Mcdaniels Home Meds and New Rx's Prescriptions: New azithromycin 250 mg tablet 250 mg PO DAILY 4 Days Qty: 4 RF: 0 prednisone 20 mg tablet 60 mg PO DAILY 5 Days Qty: 15 RF: 0 Continued omeprazole 40 mg capsule,delayed release(DR/EC) 40 mg PO DAILY RF: 0 Atrovent HFA 17 mcg/actuation HFA aerosol inhaler 1 puff IH QID PRN (Reason: shortness of breath or wheezing) Qty: 12.9 RF: 4 ipratropium-albuterol 0.5 mg-3 mg(2.5 mg base)/3 mL solution for nebulization 3 ml UPD QID Qty: 50 RF: 4 albuterol sulfate [ProAir HFA] 90 mcg/actuation HFA aerosol inhaler 2 puff Inhalation Q6H PRN Qty: 3 RF: 3 Advair HFA 115-21 mcg/actuation HFA aerosol inhaler 2 puff Inhalation BID Qty: 3 RF: 4 Oxygen EACH Inhalation IN THE DAYTIME Qty: 0.5 RF: 0 Oxygen EACH Inhalation NIGHTLY Qty: 1 RF: 0 magnesium oxide 400 mg (241.3 mg magnesium) tablet 400 mg PO HS Qty: 90 RF: 4 acetaminophen [Tylenol] 325 mg Tablet 650 mg PO Q4H PRN PRNQty: 0 RF: 0 albuterol sulfate 2.5 mg /3 mL (0.083 %) Solution For Nebulization 2.5 mg UPD Q2H PRN PRNQty: 0 RF: 0 docusate sodium [Colace] 100 mg Capsule 100 mg PO TID PRN PRNQty: 0 RF: 0 alum-mag hydroxide-simeth [Mag-Al Plus] 200-200-20 mg/5 mL Suspension 30 ml PO Q2H PRN PRNQty: 0 RF: 0 melatonin 3 mg Tablet Extended Release 6 mg PO HS Qty: 0 RF: 0 guaifenesin [Mucinex] 600 mg Tablet Extended Release 12hr 600 mg PO BID Qty: 0 RF: 0 morphine 4 mg/mL Solution 3 mg IVP Q4H PRN PRNQty: 0 RF: 0 zolpidem 5 mg Tablet 5 mg PO HS PRN MAY REPEAT X1 PRNQty: 0 RF: 0 Discharge Instructions Instructions: Pneumonia (ED) Additional Instructions: He was seen in the emergency department for COPD exacerbation with suspected pneumonia. Antibiotics were given here however a prescription for both antibiotics and steroids sent with you today. You must fill these and take them to their completion. You must return to the emergency department should your symptoms worsen or you find that you are requiring more oxygen at home. Referrals: Wyatt Arnett MD [Primary Care Provider] - 5 days Medical Decision Making Patient is a 62-year-old male presenting to the emergency department for apparent COPD exacerbation along with possible right lower lobe pneumonia. Initial sats were 77% on room air. He is on 3 L O2 at baseline. Symptoms improved dramatically status post DuoNeb followed by 1 hour continuous albuterol neb here. Chest x-ray concerning for right lower lobe infiltrate. Blood cultures x2 sent followed by azithromycin 500 mg and ceftriaxone 1 g IV. VBG shows mild hypercapnia at 58. Respiratory rate has reduced to 18 breaths/min. Lungs sounds cleared with post residual expiratory wheeze. Ambulatory sats on baseline 3 L oxygen maintained at 92%. Port score based on clinical presentation and labs here is 74. We discussed admission versus outpatient therapy with strict return precautions outlined. He would prefer discharge at this time. Plan will be to send home with a 5-day course of azithromycin. He will return should symptoms worsen. Lab Data 09/15/18 11:10 Blood Blood Culture - Pending 09/15/18 11:00 Blood Blood Culture - Pending Laboratory Tests Range/Units 09/15/18 09/15/18 09/15/18 09:38 09:38 09:38 WBC (4.4-10.8) k/cumm 8.68 RBC (4.50-6.00) m/cumm 4.51 Hgb (13.5-17.5) g/dL 13.9 Hct (40.0-50.0) % 41.4 MCV (80-95) fL 91.8 MCH (27.0-33.0) pg 30.8 MCHC (32.0-36.0) g/dL 33.6 RDW (11.8-14.1) % 13.7 Plt Count (130-400) x1000/uL 197 MPV (8.0-11.0) fL 8.9 Immature Gran % See Differential Neutrophils % 78.0 Lymphocytes % 12.0 Atypical Lymphs % 3 Monocytes % 7.0 Eosinophils % 0.0 Basophils % 0.0 Absolute Neutrophils (1.2-6.7) k/cumm 6.77 H Absolute Lymphocytes (1.2-3.4) k/cumm 1.30 Absolute Monocytes (0.11-0.7) k/cumm 0.61 Absolute Eosinophils (0.0-0.7) k/cumm 0.00 Absolute Basophils (0.0-0.2) k/cumm 0.00 Differential Comment Manual differential RBC Morphology Normal VBG pH (7.32-7.43) VBG pCO2 (34-47) mm/Hg VBG pO2 (28-44) mm/Hg VBG HCO3 (22-28) mmol/L VBG Total CO2 (22-29) mmol/L VBG O2 Saturation (70-80) % VBG Base Excess (-3-3) mmol/L Sodium (136-145) mmol/L 136 Potassium (3.5-5.1) mmol/L 3.4 L Chloride (98-107) mmol/L 96 L Carbon Dioxide (21.0-32.0) mmol/L 32.9 H Anion Gap (3-11) mmol/L 7.1 BUN (7-18) mg/dL 17 Creatinine (0.70-1.30) mg/dL 0.92 Estimated GFR/1.73 m2 (mL/min/1.73m2) >= 60.00 Glucose (70-100) mg/dL 134 H Lactate (0.6-1.4) mmol/l 1.4 Calcium (8.5-10.1) mg/dL 8.4 L Magnesium (1.8-2.4) mg/dL 2.4 Total Bilirubin (0.2-1.0) mg/dL 1.1 H AST (15-37) U/L 37 ALT (12-78) U/L 58 Alkaline Phosphatase (46-116) U/L 150 H Troponin I (0.00-0.06) ng/mL < 0.02 Total Protein (6.4-8.2) g/dL 8.4 H Albumin (3.4-5.0) g/dL 3.2 L Range/Units 09/15/18 09:38 WBC (4.4-10.8) k/cumm RBC (4.50-6.00) m/cumm Hgb (13.5-17.5) g/dL Hct (40.0-50.0) % MCV (80-95) fL MCH (27.0-33.0) pg MCHC (32.0-36.0) g/dL RDW (11.8-14.1) % Plt Count (130-400) x1000/uL MPV (8.0-11.0) fL Immature Gran % Neutrophils % Lymphocytes % Atypical Lymphs % Monocytes % Eosinophils % Basophils % Absolute Neutrophils (1.2-6.7) k/cumm Absolute Lymphocytes (1.2-3.4) k/cumm Absolute Monocytes (0.11-0.7) k/cumm Absolute Eosinophils (0.0-0.7) k/cumm Absolute Basophils (0.0-0.2) k/cumm Differential Comment RBC Morphology VBG pH (7.32-7.43) 7.38 VBG pCO2 (34-47) mm/Hg 58 H VBG pO2 (28-44) mm/Hg 27 L VBG HCO3 (22-28) mmol/L 34 H VBG Total CO2 (22-29) mmol/L 31 H VBG O2 Saturation (70-80) % 49 L VBG Base Excess (-3-3) mmol/L 9.4 H Sodium (136-145) mmol/L Potassium (3.5-5.1) mmol/L Chloride (98-107) mmol/L Carbon Dioxide (21.0-32.0) mmol/L Anion Gap (3-11) mmol/L BUN (7-18) mg/dL Creatinine (0.70-1.30) mg/dL Estimated GFR/1.73 m2 (mL/min/1.73m2) Glucose (70-100) mg/dL Lactate (0.6-1.4) mmol/l Calcium (8.5-10.1) mg/dL Magnesium (1.8-2.4) mg/dL Total Bilirubin (0.2-1.0) mg/dL AST (15-37) U/L ALT (12-78) U/L Alkaline Phosphatase (46-116) U/L Troponin I (0.00-0.06) ng/mL Total Protein (6.4-8.2) g/dL Albumin (3.4-5.0) g/dL ECG Data Interpretation: Sinus tach with a heart rate of 100. Negative for ST elevation HPI General Date/Time Provider Initiated Documentation: 09/15/18 09:28 . Related Data Home Medications Medication Instructions Recorded Confirmed Oxygen l INHALATION IN THE DAYTIME #0.5 05/13/13 09/07/18 Oxygen l INHALATION NIGHTLY #1 05/13/13 09/07/18 magnesium oxide 400 mg (241.3 mg 400 mg PO HS #90 tab 03/01/18 09/07/18 magnesium) tablet albuterol sulfate HFA 90 2 puff INHALATION Q6H PRN #3 03/30/18 09/07/18 mcg/actuation aerosol inhaler inhaler fluticasone propionate-salmeterol 2 puff INHALATION BID #3 inhaler 03/30/18 09/07/18 115 mcg-21 mcg/actuation HFA inhaler acetaminophen [Tylenol] 650 mg PO Q4H PRN PRN #0 tab 05/21/18 09/07/18 albuterol sulfate 2.5 mg UPD Q2H PRN PRN #0 ml 05/21/18 09/07/18 alum-mag hydroxide-simeth [Mag-Al 30 ml PO Q2H PRN PRN #0 ml 05/21/18 09/07/18 Plus] docusate sodium [Colace] 100 mg PO TID PRN PRN #0 cap 05/21/18 09/07/18 guaifenesin [Mucinex] 600 mg PO BID #0 tab 05/21/18 09/07/18 melatonin 6 mg PO HS #0 tab 05/21/18 09/07/18 morphine 3 mg IVP Q4H PRN PRN #0 ml 05/21/18 09/07/18 zolpidem 5 mg PO HS PRN MAY REPEAT X1 PRN 05/21/18 09/07/18 #0 tab ipratropium bromide 17 1 puff IH QID PRN #12.9 gm 09/07/18 09/07/18 mcg/actuation HFA aerosol inhaler ipratropium-albuterol 0.5 mg-3 3 ml UPD QID #50 vial 09/07/18 09/07/18 mg(2.5 mg base)/3 mL nebulization soln omeprazole 40 mg capsule,delayed 40 mg PO DAILY 09/07/18 09/07/18 release azithromycin 250 mg PO DAILY 4 Days #4 tab 09/15/18 prednisone 60 mg PO DAILY 5 Days #15 tab 09/15/18 Previous Rx's Medication Instructions Recorded magnesium oxide 400 mg (241.3 mg 400 mg PO HS #90 tab 03/01/18 magnesium) tablet albuterol sulfate HFA 90 2 puff INHALATION Q6H PRN #3 03/30/18 mcg/actuation aerosol inhaler inhaler fluticasone propionate-salmeterol 2 puff INHALATION BID #3 inhaler 03/30/18 115 mcg-21 mcg/actuation HFA inhaler acetaminophen [Tylenol] 650 mg PO Q4H PRN PRN #0 tab 05/21/18 albuterol sulfate 2.5 mg UPD Q2H PRN PRN #0 ml 05/21/18 alum-mag hydroxide-simeth [Mag-Al 30 ml PO Q2H PRN PRN #0 ml 05/21/18 Plus] docusate sodium [Colace] 100 mg PO TID PRN PRN #0 cap 05/21/18 guaifenesin [Mucinex] 600 mg PO BID #0 tab 05/21/18 melatonin 6 mg PO HS #0 tab 05/21/18 morphine 3 mg IVP Q4H PRN PRN #0 ml 05/21/18 zolpidem 5 mg PO HS PRN MAY REPEAT X1 PRN 05/21/18 #0 tab ipratropium bromide 17 1 puff IH QID PRN #12.9 gm 09/07/18 mcg/actuation HFA aerosol inhaler ipratropium-albuterol 0.5 mg-3 3 ml UPD QID #50 vial 09/07/18 mg(2.5 mg base)/3 mL nebulization soln azithromycin 250 mg PO DAILY 4 Days #4 tab 09/15/18 prednisone 60 mg PO DAILY 5 Days #15 tab 09/15/18 Allergies Allergy/AdvReac Type Severity Reaction Status Date / Time Influenza Virus Vaccines Allergy Severe Verified 09/07/18 15:04 pneumococcal vaccine Allergy Severe swells up Verified 09/07/18 15:04 General Stated Complaint: SOB CIERRA: 3 PFSH Medical History GERD (gastroesophageal reflux disease) (Chronic) Acute respiratory failure (Resolved 07/01/13) Cholecystitis (Resolved) Choledocholithiasis (Resolved) Community acquired pneumonia (Resolved) Hemoptysis (Resolved) Pancreatitis, acute (Resolved) Tobacco use (Resolved) COPD (chronic obstructive pulmonary disease) Malignant neoplasm of hypopharynx Pulmonary HTN Surgical History History of esophageal surgery (Inactive) Colonoscopy - MAC Status post laryngectomy Family History Mother Neoplasm Stroke Father Diabetes Heart disease Myocardial infarction Stroke Sister Neoplasm Brother Heart disease Asthma Grandfather No problems noted. Grandfather No problems noted. Grandmother Neoplasm Grandmother No problems noted. Brother No problems noted. Sister No problems noted. Sister No problems noted. Son No problems noted. Daughter No problems noted. Social History Smoking/Tobacco Use Status: Former Tobacco Use Alcohol Intake: never Drug use: Never Substance use type: does not use Household members: other Details: 2 Pets and animals: Yes Pets and animals: dog(s) What type of physical activity do you participate in: none Special eulogio needs: No Do you feel safe at home: Yes Do you feel safe in your relationship?: Yes Course Vital Signs Temperature 36.8 C 09/15/18 09:29 Pulse 94 H 09/15/18 09:29 Respiratory Rate 29 H 09/15/18 09:29 Blood Pressure 135/84 09/15/18 09:29 Pulse Oximetry 98 09/15/18 09:29 Temperature 36.8 C 09/15/18 09:29 Temperature Source Skin 09/15/18 09:29 Pulse 86 09/15/18 11:16 Respiratory Rate 24 09/15/18 11:16 Respiratory Effort 09/15/18 09:56 Respiratory Depth Deep 09/15/18 09:56 Respiratory Pattern Tachypnea 09/15/18 09:56 Blood Pressure 135/84 09/15/18 09:29 Blood Pressure Position Sitting 09/15/18 09:29 Pulse Oximetry 95 09/15/18 11:16 Oxygen Delivery Method OxyMask 09/15/18 11:16 Oxygen Flow Rate 6 09/15/18 11:16 Pain Level 0 09/15/18 09:29 Lab/Test Results Lab/Test Results: 09/15/18 11:10 Blood Blood Culture - Pending 09/15/18 11:00 Blood Blood Culture - Pending Laboratory Tests Range/Units 09/15/18 09/15/18 09/15/18 09:38 09:38 09:38 WBC (4.4-10.8) k/cumm 8.68 RBC (4.50-6.00) m/cumm 4.51 Hgb (13.5-17.5) g/dL 13.9 Hct (40.0-50.0) % 41.4 MCV (80-95) fL 91.8 MCH (27.0-33.0) pg 30.8 MCHC (32.0-36.0) g/dL 33.6 RDW (11.8-14.1) % 13.7 Plt Count (130-400) x1000/uL 197 MPV (8.0-11.0) fL 8.9 Immature Gran % See Differential Neutrophils % 78.0 Lymphocytes % 12.0 Atypical Lymphs % 3 Monocytes % 7.0 Eosinophils % 0.0 Basophils % 0.0 Absolute Neutrophils (1.2-6.7) k/cumm 6.77 H Absolute Lymphocytes (1.2-3.4) k/cumm 1.30 Absolute Monocytes (0.11-0.7) k/cumm 0.61 Absolute Eosinophils (0.0-0.7) k/cumm 0.00 Absolute Basophils (0.0-0.2) k/cumm 0.00 Differential Comment Manual differential RBC Morphology Normal VBG pH (7.32-7.43) VBG pCO2 (34-47) mm/Hg VBG pO2 (28-44) mm/Hg VBG HCO3 (22-28) mmol/L VBG Total CO2 (22-29) mmol/L VBG O2 Saturation (70-80) % VBG Base Excess (-3-3) mmol/L Sodium (136-145) mmol/L 136 Potassium (3.5-5.1) mmol/L 3.4 L Chloride (98-107) mmol/L 96 L Carbon Dioxide (21.0-32.0) mmol/L 32.9 H Anion Gap (3-11) mmol/L 7.1 BUN (7-18) mg/dL 17 Creatinine (0.70-1.30) mg/dL 0.92 Estimated GFR/1.73 m2 (mL/min/1.73m2) >= 60.00 Glucose (70-100) mg/dL 134 H Lactate (0.6-1.4) mmol/l 1.4 Calcium (8.5-10.1) mg/dL 8.4 L Magnesium (1.8-2.4) mg/dL 2.4 Total Bilirubin (0.2-1.0) mg/dL 1.1 H AST (15-37) U/L 37 ALT (12-78) U/L 58 Alkaline Phosphatase (46-116) U/L 150 H Troponin I (0.00-0.06) ng/mL < 0.02 Total Protein (6.4-8.2) g/dL 8.4 H Albumin (3.4-5.0) g/dL 3.2 L Range/Units 09/15/18 09:38 WBC (4.4-10.8) k/cumm RBC (4.50-6.00) m/cumm Hgb (13.5-17.5) g/dL Hct (40.0-50.0) % MCV (80-95) fL MCH (27.0-33.0) pg MCHC (32.0-36.0) g/dL RDW (11.8-14.1) % Plt Count (130-400) x1000/uL MPV (8.0-11.0) fL Immature Gran % Neutrophils % Lymphocytes % Atypical Lymphs % Monocytes % Eosinophils % Basophils % Absolute Neutrophils (1.2-6.7) k/cumm Absolute Lymphocytes (1.2-3.4) k/cumm Absolute Monocytes (0.11-0.7) k/cumm Absolute Eosinophils (0.0-0.7) k/cumm Absolute Basophils (0.0-0.2) k/cumm Differential Comment RBC Morphology VBG pH (7.32-7.43) 7.38 VBG pCO2 (34-47) mm/Hg 58 H VBG pO2 (28-44) mm/Hg 27 L VBG HCO3 (22-28) mmol/L 34 H VBG Total CO2 (22-29) mmol/L 31 H VBG O2 Saturation (70-80) % 49 L VBG Base Excess (-3-3) mmol/L 9.4 H Sodium (136-145) mmol/L Potassium (3.5-5.1) mmol/L Chloride (98-107) mmol/L Carbon Dioxide (21.0-32.0) mmol/L Anion Gap (3-11) mmol/L BUN (7-18) mg/dL Creatinine (0.70-1.30) mg/dL Estimated GFR/1.73 m2 (mL/min/1.73m2) Glucose (70-100) mg/dL Lactate (0.6-1.4) mmol/l Calcium (8.5-10.1) mg/dL Magnesium (1.8-2.4) mg/dL Total Bilirubin (0.2-1.0) mg/dL AST (15-37) U/L ALT (12-78) U/L Alkaline Phosphatase (46-116) U/L Troponin I (0.00-0.06) ng/mL Total Protein (6.4-8.2) g/dL Albumin (3.4-5.0) g/dL
== END 2018-09-15 13:50 | disposition home or self-care (01) ==
PROVIDERS: Emergency Provider Physician Assistant; PCP Family Medicine
DX: J18.9 Pneumonia, unspecified organism (principal); J44.0 Chronic obstructive pulmonary disease with (acute) lower respiratory infection; Z90.02 Acquired absence of larynx; Z87.891 Personal history of nicotine dependence
CPT/HCPCS: 36410; 36415; 80053; 82805; 87040; 93005; 94640; 94644; 96361; 96365; 96367; 99285; 71046; 83605; 83735; 84484; 85025; 93010; J0456; J0696; J2930; J7611; J7620

== ENCOUNTER 2018-12-03 08:56 | Outpatient (CLI) | payer MEDICARE, MEDICAID, SELFPAY ==
[2018-12-03 10:02] LABS: Hemoglobin A1C 5.5 % (4.5-6.2)
[2018-12-03 10:31] LABS: Calculated LDL 66 mg/dL; Cholesterol 163 mg/dL (50-200); HDL Cholesterol 30 mg/dL (40-60); Triglyceride 338 mg/dL (30-150)
== END 2018-12-03 09:16 ==
PROVIDERS: PCP Family Medicine; Visit Provider Family Medicine
DX: R73.9 Hyperglycemia, unspecified (principal); I71.4 Abdominal aortic aneurysm, without rupture
CPT/HCPCS: 36415; 80061; 83721; 83036

== ENCOUNTER 2019-12-16 01:09 | Outpatient (CLI) | payer MEDICARE, MEDICAID, SELFPAY ==
--- NOTE | 2019-12-16 06:30 | DI.US_ITS ---
EXAM: US AAA DIAGNOSTIC CLINICAL HISTORY: Follow-up abdominal aortic aneurysm,I71.4 TECHNIQUE: Ultrasound performed using standard protocol. COMPARISON: US BILATERAL EXTREMITY US from 03/15/2010 FINDINGS: Limited abdominal ultrasound was performed to evaluate abdominal aorta. Previously noted 3.8 cm in d iameter abdominal seen on CT May 2018 is again noted and unchanged. Ectasia proximal common mauricio c arteries noted bilaterally, 20 millimeter maximal diameter on the right and 18 millimeter maximal d iameter on the left. No pseudoaneurysm or leakage identified. IMPRESSION: Stable 38 millimeter abdominal aortic aneurysm. DATA REPOSITORY:
== END 2019-12-16 01:29 ==
PROVIDERS: PCP Family Medicine; Visit Provider Family Medicine
DX: I71.4 Abdominal aortic aneurysm, without rupture (principal)
CPT/HCPCS: 76775

== ENCOUNTER 2020-04-22 15:21 | Outpatient (REF) | payer MEDICARE, MEDICAID, SELFPAY ==
[2020-04-22 22:27] LABS: Abs Immature Grans 0.03 10^3/uL (0.0-0.06); Absolute Basophil Count 0.04 10^3/uL (0.0-0.2); Absolute Eosinophil Count 0.12 10^3/uL (0.0-0.7); Absolute Lymphocyte Count 1.12 10^3/uL (1.2-3.4); Absolute Monocyte Count 0.52 10^3/uL (0.1-0.8); Absolute Neutrophil Count 6.58 10^3/uL (1.2-6.7); Basophils % 0.5; Eosinophils % 1.4; HCT 45.6 % (40.0-50.0); HGB 15.6 g/dL (13.5-17.5); Immature Grans % 0.4; Lymphocytes % 13.3; MCH 30.4 pg (27.0-33.0); MCHC 34.2 % (32.0-36.0); MCV 88.7 fL (80-95); MPV 9.2 fL (8.0-11.0); Monocytes % 6.2; Neutrophils % 78.2; Nucleated RBC 0 %; Platelet Count 230 10^3/uL (130-400); RBC 5.14 10^6/uL (4.36-5.78); RDW 12.3 % (11.8-14.1); RDW-SD 40.3 fL; WBC 8.41 10^3/uL (4.4-10.8)
[2020-04-22 22:55] LABS: ALT 82 U/L (16-63); AST 46 U/L (15-37); Albumin 3.9 g/dL (3.4-5.0); Alkaline Phosphatase 160 U/L (46-116); Anion Gap 8.8 mmol/L (3-11); BUN 14 mg/dL (7-18); Bilirubin, Total 0.7 mg/dL (0.2-1.0); CO2 28.2 mmol/L (21.0-32.0); CREATININE 0.88 mg/dL (0.70-1.30); Calcium 8.7 mg/dL (8.5-10.1); Calculated LDL 80 mg/dL (<100); Chloride 100 mmol/L (98-107); Cholesterol 144 mg/dL (<200); Glucose 103 mg/dL (74-106); HDL Cholesterol 29 mg/dL (40-60); Potassium 3.8 mmol/L (3.5-5.1); Sodium 137 mmol/L (136-145); TSH 3.77 uIU/mL (0.36-3.74); Total Protein 7.7 g/dL (6.4-8.2); Triglyceride 177 mg/dL (<150)
== END 2020-04-22 15:41 ==
LOC: NCHCN 15:21
PROVIDERS: PCP Family Medicine; Visit Provider Family Medicine
DX: D75.1 Secondary polycythemia (principal); I10 Essential (primary) hypertension; I71.4 Abdominal aortic aneurysm, without rupture; R60.0 Localized edema
CPT/HCPCS: 80053; 80061; 84443; 85025

== ENCOUNTER 2020-10-25 09:40 | Emergency (ER) | payer MEDICARE, MEDICAID, SELFPAY ==
[2020-10-25] VITALS (48 sets, daily range): BP systolic 127–197; BP diastolic 71–170; PULSE 73–124; RESP 7–48; TEMP 34–36.6; O2SAT 86–100
--- NOTE | 2020-10-25 09:30 | RT.EKG_ITS ---
APPROVED REPORT Exam: Resting ECG Reason for Exam: syncope Patient Location: E HR:89 bpm ECG Measurements Heart Rate 89 AXIS NV 180 P 20 QRSd 93 QRS 13 QT 366 T 80 QTc 445 Conclusion Sinus rhythm...normal P axis, V-rate 60- 99 Ventricular premature complex...V complex w/ short R-R interval
--- NOTE | 2020-10-25 09:45 | DI.CT_ITS ---
Exam(s) CT HEAD WO EXAM: CT HEAD WO CLINICAL HISTORY: syncope at home. TECHNIQUE: Imaging Protocol: Axial computed tomography images with coronal and sagittal reformatted images were created and reviewed COMPARISON: No exams were available for comparison FINDINGS: Ventricles and Extra axial spaces: Normal in size and morphology for the patient's age. Hemorrhage: None. Cerebral parenchyma: No acute territorial infarct. There are areas of decreased attenuation in the w tereso matter most consistent with chronic microvascular ischemic disease. 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 Midline shift: None. Brainstem/Cerebellum: Normal. Calvarium: Normal. Visualized Paranasal sinuses/Mastoids: Clear. Soft Tissues: Unremarkable. IMPRESSION: No acute intracranial process. RADIATION DOSE DELIVERED: 808.68mGy.cm Total DLP DATA REPOSITORY: All CT scans at this facility are submitted to the National Radiology Data Registry (NRDR) Dose Index Registry (DIR) with the [employer] ([employer]). RADIATION OPTIMIZATION: All CT scans at this facility use at least one of these dose optimization te chniques: automated exposure control; mA and/or kV adjustment per patient size (includes targeted exa ms where dose is matched to clinical indication); or iterative reconstruction.
--- NOTE | 2020-10-25 09:45 | DI.RAD_ITS ---
Exam(s) XR CHEST 2V PA LATERAL EXAM: XR CHEST 2V PA LATERAL CLINICAL HISTORY: syncope at home TECHNIQUE: 2D digital imaging was performed. COMPARISON: CR XR CHEST 2V PA LATERAL from 09/15/2018 FINDINGS: MEDIASTINUM: Normal. HEART: Cardiomegaly. PULMONARY VASCULATURE: Normal. LUNGS: Hyperexpansion of the lungs suggesting underlying COPD. PLEURAL SPACE: No pleural effusion or pneumothorax. BONE:Within normal limits for the patient's age. OTHER FINDINGS:Normal. IMPRESSION: No acute pulmonary findings. DATA REPOSITORY: RADIATION DOSE DELIVERED:
--- NOTE | 2020-10-25 09:57 | ED.GENADUL_ITS ---
Discharge Plan Disposition Patient Disposition: HOME Condition: Improving Discharge Details Clinical Impression: Skin tear of left elbow without complication, Syncope Primary Care Provider: Van Xie ED Provider: Mynor Lopes Home Meds and New Rx's Prescriptions: Continued azithromycin 500 mg tablet 500 mg PO QMWF Qty: 18 RF: 3 omeprazole 40 mg capsule,delayed release(DR/EC) 40 mg PO DAILY Qty: 90 RF: 3 albuterol sulfate [Ventolin HFA] 90 mcg/actuation HFA aerosol inhaler 2 puff IH Q6H PRN (Reason: shortness of breath or wheezing) Qty: 18 RF: 11 (DME) oxygen-air delivery systems Device Inhalation NIGHTLY Qty: 1 RF: 0 Oxygen EACH Inhalation IN THE DAYTIME Qty: 0.5 RF: 0 Atrovent HFA 17 mcg/actuation HFA aerosol inhaler 1 puff IH QID PRN (Reason: shortness of breath or wheezing) Qty: 12.9 RF: 4 albuterol sulfate 2.5 mg /3 mL (0.083 %) solution for nebulization 2.5 mg inhalation Q2H PRN (Reason: shortness of breath or wheezing) Qty: 180 RF: 3 budesonide-formoterol [Symbicort] 80-4.5 mcg/actuation HFA aerosol inhaler 2 puff IH BID Qty: 10.2 RF: 4 magnesium oxide 400 mg (241.3 mg magnesium) tablet 400 mg PO HS Qty: 90 RF: 4 acetaminophen [Tylenol] 325 mg Tablet 650 mg PO Q4H PRN PRNQty: 0 RF: 0 aspirin 81 mg Tablet,Delayed Release (Dr/Ec) 81 mg PO DAILY RF: 0 nifedipine 60 mg tablet extended release 30 mg PO DAILY RF: 0 Discharge Instructions Instructions: Syncope (ED) Additional Instructions: We will ask care management to make you a follow-up with your primary care physician for recheck. Please Mepilex Leave dressing in place over left elbow for 1 week and then may remove. Continue your routine medications. As we discussed, you were offered admission to the hospital which you have deferred. Please return at any time for reevaluation or if you develop chest pain, difficulty breathing, or any other acute concerns. Medical Decision Making 64-year-old male states he awoke feeling normal this morning. He was watching television in a chair next he knows woke up on the floor. States she has a skin tear of the left elbow from of likely the edge of the desk that he was sitting up. He denies any chest pain, palpitations, headache. States he feels well and improved. Patient arrives to ER with diminished breath sounds, conversant and interactive without any complaints. Patient has a history of COPD with 2.5 L oxygen at home, laryngeal cancer, s/p total laryngectomy with tracheostomy, and esophageal repair. Tdap less than 8 yrs. Patient given small fluid bolus, DuoNeb updraft, referred for CT scan of the head, chest x-ray, laboratories & EKG. CT scan and chest x-ray are unremarkable for acute findings. CBC unremarkable. Chemistries reassuring although note AST 46, ALT 90. Troponin negative x2. No clear etiology for patient's presumed syncopal event. He was improved and at baseline. I discussed with he and his daughter at the bedside consideration of admission for further monitoring and observation which he wished to defer at this time. He certainly has capacity to make this decision. I do not feel he needs to be required to sign out AGAINST MEDICAL ADVICE. He will return for any acute concerns. HPI General Mode of arrival: ambulatory . Date/Time Provider Initiated Documentation: 10/25/20 09:43 . Limitations to Documentation: no limitations . Information obtained by: patient . History of Present Illness 64 year old M presents to the emergency department with the chief complaint of Syncope at home, now improved, described as mild, Patient reports no radiation. and it has been now resolved. No relieving factors improve symptom(s), No exacerbating factors reported . Patient notes no other symptoms.; denies confusion, chest pain, fever/chills, headaches, loss of appetite, nausea/vomiting and seizure. Patient did receive the following treatments prior to arrival, none Related Data Home Medications Medication Instructions Recorded Confirmed Oxygen l INHALATION IN THE DAYTIME #0.5 05/13/13 06/03/20 oxygen-air delivery systems #1 05/13/13 10/25/20 acetaminophen [Tylenol] 650 mg PO Q4H PRN PRN #0 tab 05/21/18 10/25/20 ipratropium bromide 17 1 puff IH QID PRN #12.9 gm 01/17/20 10/25/20 mcg/actuation HFA aerosol inhaler albuterol sulfate 90 mcg/actuation 2 puff IH Q6H PRN #18 gm 04/22/20 10/25/20 aerosol inhaler azithromycin 500 mg tablet 500 mg PO QMWF #18 tab 04/22/20 10/25/20 omeprazole 40 mg capsule,delayed 40 mg PO DAILY #90 cap 04/22/20 10/25/20 release albuterol sulfate 2.5 mg INHALATION Q2H PRN #180 ml 04/27/20 10/25/20 budesonide-formoterol HFA 80 2 puff IH BID #10.2 gm 06/03/20 10/25/20 mcg-4.5 mcg/actuation aerosol inhaler magnesium oxide 400 mg (241.3 mg 400 mg PO HS #90 tab 06/03/20 10/25/20 magnesium) tablet aspirin 81 mg PO DAILY 10/25/20 10/25/20 nifedipine 30 mg PO DAILY 10/25/20 10/25/20 Previous Rx's Medication Instructions Recorded acetaminophen [Tylenol] 650 mg PO Q4H PRN PRN #0 tab 05/21/18 ipratropium bromide 17 1 puff IH QID PRN #12.9 gm 01/17/20 mcg/actuation HFA aerosol inhaler albuterol sulfate 90 mcg/actuation 2 puff IH Q6H PRN #18 gm 04/22/20 aerosol inhaler azithromycin 500 mg tablet 500 mg PO QMWF #18 tab 04/22/20 omeprazole 40 mg capsule,delayed 40 mg PO DAILY #90 cap 04/22/20 release albuterol sulfate 2.5 mg INHALATION Q2H PRN #180 ml 04/27/20 budesonide-formoterol HFA 80 2 puff IH BID #10.2 gm 06/03/20 mcg-4.5 mcg/actuation aerosol inhaler magnesium oxide 400 mg (241.3 mg 400 mg PO HS #90 tab 06/03/20 magnesium) tablet Allergies Allergy/AdvReac Type Severity Reaction Status Date / Time Influenza Virus Vaccines Allergy Severe Verified 10/25/20 09:48 pneumococcal vaccine Allergy Severe swells up Verified 10/25/20 09:48 General Stated Complaint: Dizzy/Sync CIERRA: 2 Review of Systems Narrative: 6 systems reviewed and otherwise negative. PFSH Medical History Acute respiratory failure (07/01/13) With hopoxia, chronic Co2 retention, bilateral infiltrates. Cholecystitis Choledocholithiasis Chronic respiratory failure with hypoxia at baseline at 28% FiO2 via mist collar Community acquired pneumonia COPD (chronic obstructive pulmonary disease) GERD (gastroesophageal reflux disease) Hemoptysis Malignant neoplasm of hypopharynx Pancreatitis, acute Pulmonary HTN Tobacco use Recent attempt at cessation Surgical History Colonoscopy - MAC 08/30/13; AWAITING PATH REORT History of esophageal surgery Status post laryngectomy Family History Mother , 52 Stroke Cancer Father , 65 Diabetes Heart disease Myocardial infarction Stroke Sister , 40 Cancer Uterine Brother , 24 Heart disease Asthma Maternal Grandfather No problems noted. Paternal Grandfather No problems noted. Maternal Grandmother Neoplasm Paternal Grandmother No problems noted. Sister No problems noted. Sister , 50? No problems noted. Son No problems noted. Daughter No problems noted. Social History (Updated 12/06/19 @ 16:06 by Bhavna Donovan) Smoking/Tobacco Use Status: Former Tobacco Use Tobacco: How many years used: 35 Smoking risk assessment performed?: Yes Alcohol Intake: former Drug use: Never Substance use type: does not use Counseling given: No Counseling provided: none Caregiver/Support person: No Household members: friend(s) and other Details: 2 Housing: house Do you need help understanding health information?: Rarely Pets and animals: Yes Pets and animals: dog(s) Sexually active: No Do you think of yourself as: straight/heterosexual Current gender identity: male What is your relationship status?: How often do you talk on the phone with friends or family?: never How often do you get together with friends or relatives?: twice per week How often do you attend oriental orthodox or samaritan services?: decline to answer Do you belong to any clubs or organized social groups?: no Panel score (0-1 are the most socially isolated patients): 0 What type of physical activity do you participate in: none Irene/Gnosticist: No preference Special irene needs: No Seatbelt use: always Helmet use: No Drive intox or ride w/intox front loader residential driver: No Do you feel safe at home: Yes Do you feel safe in your relationship?: Yes Exam Narrative Exam Narrative: GEN: awake, alert, oriented 3. Pleasant, well groomed, interactive. HEAD: Normocephalic, atraumatic ENT: Mucous membranes dry, laryngectomy with tracheostomy, External ear exam unremarkable EYES: PERRL, EOMI NECK: Full ROM, no KAERN, no menigismus CHEST/RESP: Nontender, diminished throughout with scant end expiratory wheeze CARDIOVASCULAR: RRR, no murmur, rub deepak. 2+ Rad pulse bilateral ABDOMEN: Soft, nontender, no mass. +Bowel sounds EXT: Full ROM, no edema, no rash Neuro: Grossly normal neurologic exam, conversant, interactive. Psych: Speech fluent, thoughts congruent, affect normal Course Vital Signs Vital signs: Vital Signs Temperature 36.6 C 10/25/20 09:43 Pulse 95 H 10/25/20 09:43 Respiratory Rate 34 H 10/25/20 09:43 Pulse Oximetry 87 L 10/25/20 09:43 Temperature 36.6 C 10/25/20 09:43 Temperature Source Skin 10/25/20 09:43 Pulse 95 H 10/25/20 09:43 Respiratory Rate 34 H 10/25/20 09:43 Blood Pressure Position Sitting 10/25/20 09:43 Pulse Oximetry 87 L 10/25/20 09:43 Oxygen Delivery Method Room Air 10/25/20 09:43 Oxygen Flow Rate 0 10/25/20 09:43 Comment 10/25/20 09:43
[2020-10-25] MEDS: Normal Saline 1,000 ML 1000 ML IV (10:06)
[2020-10-25 10:07] LABS: Abs Immature Grans 0.05 10^3/uL (0.0-0.06); Absolute Basophil Count 0.05 10^3/uL (0.0-0.2); Absolute Eosinophil Count 0.19 10^3/uL (0.0-0.7); Absolute Neutrophil Count 6.67 10^3/uL (1.2-6.7); Basophils % 0.6; Eosinophils % 2.1; HCT 48.3 % (40.0-50.0); HGB 16.3 g/dL (13.5-17.5); Immature Grans % 0.6; Lymphocytes % 16.6; MCHC 33.7 % (32.0-36.0); MPV 8.5 fL (8.0-11.0); Monocytes % 6.6; Neutrophils % 73.5; Nucleated RBC 0 %; Platelet Count 238 10^3/uL (130-400); RBC 5.25 10^6/uL (4.36-5.78); RDW 12.5 % (11.8-14.1); RDW-SD 42.5 fL; WBC 9.06 10^3/uL (4.4-10.8)
[2020-10-25 10:24] LABS: ALT 90 U/L (16-63); AST 46 U/L (15-37); Albumin 3.8 g/dL (3.4-5.0); Alkaline Phosphatase 197 U/L (46-116); Anion Gap 10.2 mmol/L (3-11); BUN 13 mg/dL (7-18); Bilirubin, Total 0.6 mg/dL (0.2-1.0); CO2 29.8 mmol/L (21.0-32.0); CREATININE 0.9 mg/dL (0.70-1.30); Calcium 8.5 mg/dL (8.5-10.1); Chloride 101 mmol/L (98-107); Glucose 141 mg/dL (74-106); Magnesium 2.3 mg/dL (1.8-2.4); Potassium 4.1 mmol/L (3.5-5.1); Sodium 141 mmol/L (136-145); Total Protein 8.5 g/dL (6.4-8.2)
[2020-10-25 10:25] LABS: Troponin I < 0.05 ng/mL (<0.06)
[2020-10-25] MEDS: Albuterol/Ipratropium 3 ML UPD VIAL UPD (10:39)
--- NOTE | 2020-10-25 11:09 | DI.VRAD_ITS ---
PROCEDURE INFORMATION: Exam: XR Chest Exam date and time: 10/25/2020 9:57 AM Age: 64 years old Clinical indication: Other: Syncope TECHNIQUE: Imaging protocol: XR of the chest. Views: 2 views. COMPARISON: CR XR CHEST 2V PA LATERAL 09/15/2018 10:24 AM FINDINGS: Lungs: Unremarkable. No consolidation. Pleural spaces: Unremarkable. No pleural effusion. No pneumothorax. Heart/Mediastinum: Stable cardiomegaly. Bones/joints: Unremarkable. IMPRESSION: No acute findings. Dictated and Authenticated by: Aracelis Alfaro MD. Ordering:ALBERTO Lowe MD
--- NOTE | 2020-10-25 11:12 | DI.VRAD_ITS ---
PROCEDURE INFORMATION: Exam: CT Head Without Contrast Exam date and time: 10/25/2020 9:57 AM Age: 64 years old Clinical indication: Syncope and collapse TECHNIQUE: Imaging protocol: Computed tomography of the head without contrast. COMPARISON: No relevant prior studies available. FINDINGS: Brain: Central and cortical brain atrophy evident, appropriate for patient age. There is nonspecific periventricular low attenuation, likely microangiopathic disease. Remote lacunar infarction left caudate head. No acute intracranial hemorrhage. Cerebral ventricles: No ventriculomegaly. Paranasal sinuses: Visualized sinuses are unremarkable. No fluid levels. Mastoid air cells: Visualized mastoid air cells are well aerated. Bones/joints: Unremarkable. No acute fracture. Soft tissues: Unremarkable. IMPRESSION: No acute intracranial abnormality. Dictated and Authenticated by: Aracelis Alfaro MD. Ordering:ALBERTO Lowe MD
--- NOTE | 2020-10-25 12:30 | RT.EKG_ITS ---
APPROVED REPORT Exam: Resting ECG Reason for Exam: repeat troponin Patient Location: E HR:89 bpm ECG Measurements Heart Rate 89 AXIS [place] 164 P 68 QRSd 87 QRS 15 QT 359 T 61 QTc 437 Conclusion Sinus rhythm...normal P axis, V-rate 60- 99
[2020-10-25 13:04] LABS: Troponin I < 0.05 ng/mL (<0.06)
--- NOTE | 2020-10-25 14:01 | RESPIRATORY ---
Pt came in without his baseline 2.5L o2 in place. Pt has a laryngectomy but no tube in place, stoma is clean and shows nothing concerning. Per pt he uses his sloane tube sometimes at home and has his oxygen, humidifier, and suction supplies at home. While in the ER pt placed on Opti flow for humidity.Pt reports having his stoma for about 7 years and has had no complications although he was re-educated on the need to use his laryngectomy tube as well as humidity
--- NOTE | 2020-10-25 14:06 | NUR.NOTE ---
Nursing Note: Referral placed to [facility] consult. Referral given to Care Management to confirm that patient was contacted and appt. was made. Jo Ann Hernández
--- NOTE | 2020-10-25 14:16 | NUR.NOTE ---
Nursing Note: Referral faxed to [facility] for follow up within 2 weeks for syncope. Jo Ann Hernández
== END 2020-10-25 14:29 | disposition home or self-care (01) ==
PROVIDERS: Emergency Provider Emergency Medicine; PCP Nurse Practitioner Family
DX: R55 Syncope and collapse (principal); S51.012A Laceration without foreign body of left elbow, initial encounter; W18.39XA Other fall on same level, initial encounter
CPT/HCPCS: 36415; 80053; 93005; 96360; 99285; 70450; 71046; 83735; 84484; 85025; 93010; 99284; J7620

== ENCOUNTER 2020-12-23 03:17 | Outpatient (CLI) | payer MEDICARE, MEDICAID, SELFPAY ==
[2020-12-23 12:54] LABS: Hemoglobin A1C 5.8 % (<5.7)
[2020-12-23 12:57] LABS: Calculated LDL 97 mg/dL (<100); Cholesterol 159 mg/dL (<200); HDL Cholesterol 32 mg/dL (40-60); TSH 5.64 uIU/mL (0.36-3.74); Triglyceride 152 mg/dL (<150)
== END 2020-12-23 03:18 | disposition home or self-care (01) ==
LOC: LOS 03:17
PROVIDERS: PCP Nurse Practitioner Family; Visit Provider Nurse Practitioner Family
DX: I71.4 Abdominal aortic aneurysm, without rupture (principal); R73.9 Hyperglycemia, unspecified; R60.9 Edema, unspecified
CPT/HCPCS: 36415; 80061; 83036; 84443

== ENCOUNTER 2021-03-22 01:55 | Outpatient (CLI) | payer MEDICARE, MEDICAID, SELFPAY ==
[2021-03-22 13:04] LABS: Hemoglobin A1C 5.7 % (<5.7)
== END 2021-03-22 01:56 | disposition home or self-care (01) ==
LOC: LOS 01:56
PROVIDERS: PCP Nurse Practitioner Family; Visit Provider Nurse Practitioner Family
DX: R79.89 Other specified abnormal findings of blood chemistry (principal)
CPT/HCPCS: 36415; 83036; 84439; 84443

== ENCOUNTER 2021-04-12 08:30 | Emergency (ER) | payer MEDICARE, MEDICAID, SELFPAY ==
[2021-04-12] VITALS (62 sets, daily range): BP systolic 78–138; BP diastolic 62–113; PULSE 84–130; RESP 14–49; TEMP 36.5; O2SAT 93–99
--- NOTE | 2021-04-12 08:28 | ED.GENADUL_ITS ---
Discharge Plan Disposition Patient Disposition: HOME Condition: Stable Discharge Details Clinical Impression: Foreign body in airway Primary Care Provider: Van Xie ED Provider: María Wilhelm Home Meds and New Rx's Prescriptions: New doxycycline hyclate 100 mg tablet 100 mg PO BID 7 Days Qty: 14 RF: 0 Continued omeprazole 40 mg capsule,delayed release(DR/EC) 40 mg PO DAILY Qty: 90 RF: 3 Oxygen EACH Inhalation IN THE DAYTIME Qty: 0.5 RF: 0 magnesium oxide 400 mg (241.3 mg magnesium) tablet 400 mg PO HS Qty: 90 RF: 4 albuterol sulfate [Ventolin HFA] 90 mcg/actuation HFA aerosol inhaler 2 puff IH Q6H PRN (Reason: shortness of breath or wheezing) Qty: 18 RF: 11 budesonide-formoterol [Symbicort] 80-4.5 mcg/actuation HFA aerosol inhaler 2 puff IH BID Qty: 10.2 RF: 4 albuterol sulfate 2.5 mg /3 mL (0.083 %) solution for nebulization 2.5 mg inhalation Q2H PRN (Reason: shortness of breath or wheezing) Qty: 180 RF: 3 Atrovent HFA 17 mcg/actuation HFA aerosol inhaler 1 puff IH QID Qty: 12.9 RF: 5 ipratropium-albuterol 0.5 mg-3 mg(2.5 mg base)/3 mL solution for nebulization 3 ml inhalation QID PRN (Reason: wheezing) Qty: 180 RF: 4 acetaminophen [Tylenol] 325 mg Tablet 650 mg PO Q4H PRN PRNQty: 0 RF: 0 No Action (DME) oxygen-air delivery systems Device Inhalation NIGHTLY Qty: 1 RF: 0 Atrovent HFA 17 mcg/actuation HFA aerosol inhaler 1 puff IH QID PRN (Reason: shortness of breath or wheezing) Qty: 12.9 RF: 4 azithromycin 500 mg tablet 500 mg PO QMWF Qty: 18 RF: 3 aspirin 81 mg Tablet,Delayed Release (Dr/Ec) 81 mg PO DAILY RF: 0 nifedipine 60 mg tablet extended release 30 mg PO DAILY RF: 0 Discharge Instructions Instructions: Foreign Body in Pharynx (ED) Additional Instructions: Take the antibiotic twice daily as instructed. Continue using the albuterol under normal oxygenation. Please return to be seen for any worsening coughing up blood, worsening shortness of breath, fever chills or any concerns. Follow up with primary care provider in 3-5 days. Return to ED sooner if any worsening or concerns. Increase oral fluids. Referrals: Van Xie [employer] [Primary Care Provider] - Ivy Shepherd MD [ [facility] STAFF PHYSICIAN] - 2 weeks Discharge Data Discharge Date/Time-TO BE ENTERED AT DEPARTURE: 04/12/21 14:46 Medical Decision Making 65-year-old male presents to the ER via EMS with chief complaint of possible foreign body in the airway. Patient has a tracheostomy and he was self suctioning when the end of the suction catheter broke off inside the stoma. He denies any pain at this time. He does report some increased shortness of breath. He is on 10 L nonrebreather over the stoma upon arrival. He does have some scattered wheezing to his right side. He does not have the tracheostomy tube in place upon arrival. History is somewhat limited due to patient being nonverbal. He has a past medical history of COPD, GERD, malignant neoplasm of hypopharynx, pulmonary hypertension. 0828: RT called, 0859: Spoke with Dr. Padilla with pulmonology regarding patient case and details. She recommends a CT of the chest without contrast to rule out or to evaluate foreign body. CT ordered. Will call Dr. Padilla back after CT. 0915: Dr. Padilla here in the department to discuss patient case. Heart rate is 102 O2 sat is 99%. Informed by direct care staffer the patient is beginning to get more tachypneic more short of breath. Basic labs ordered. 1020: Spoke with Dr. Alberto with radiology who confirms that there is a pproximately 8 cm long tubular structure in the trachea it is not below the john. He also reports mild peripheral right middle lobe infiltrate. CT Chest W Contrast: CHEST: LUNGS: There is a 7 x 6 millimeter noncalcified nodule in the left lower lobe (series 2/image 42). No other focal left lung findings and no pleural effusion. In the right lung there is mild infiltrate noted in the right middle lobe, including a few air bronchograms in the medial segment. Relative sparing of the right lower lobe. No pleural effusions on either side. There is a tubular density in the trachea which measures 8 cm and extends down to almost subcarinal level. MEDIASTINUM: There is no obvious hilar nor mediastinal adenopathy. Visualized thyroid unremarkable.No obvious axillary adenopathy CARDIAC: Heart size is normal. There is no pericardial effusion.Diameter of the thoracic aorta is increased. The ascending thoracic aorta exhibits diameter 4 cm. The diameter of the mid aortic arch is 3.4 cm. Diameter of the proximal descending thoracic aorta is 3.2 cm and diameter of the distal descending thoracic aorta is also elevated at 3.2 cm. The lower most images of this study are in the upper abdomen and reveal aneurysm of at least 3.6 cm. VISUALIZED UPPER ABDOMEN: Gallbladder surgically absent OSSEOUS: . No adrenal masses.. IMPRESSION: 1. There is an 8 cm long tubular catheter in the trachea. This requires removal. Apparently broken off during suctioning. 2. There is mild infiltrate in the right middle lobe.. There is also a 7 millimeter noncalcified nodule in the left lower lobe which will require appropriate follow-up including repeat CT scan in 3 months. 3. No pleural effusions. Prominent diameter of the thoracic aorta as described above. Also presence of partially visualized abdominal aortic aneurysm, as described above. 1025: Spoke with Dr. Padilla who was able to personally view the CT images. She is going to see if the bronchoscope and tower can be brought to the emergency department for procedure here in the ER. 1103: Dr. Padilla performed foreign body retrieval which was successful at the bedside here in the department. Dr. Padilla was able to retrieve approximately 8 cm of tubing presumed suction catheter from the right mainstem. Patient tolerated well. Discussed home care she recommends observation for 1 to 2 hours and will admit if increasing any hemoptysis. We will plan for short course of antibiotic to treat empirically for possible pneumonia. Dr. Padilla's patient to continue using albuterol inhalers. Care management contacted to provide patient with new suction material including flexible suction catheters. 1133: Patient reevaluation, he is stable, no significant lab noted. Discussed observation with patient and plan of care he verbalized understanding. He reports he feels much improvement after removal of foreign body. RT is weaning him down to his normal 3 to 5 L oxygen. Patient reports he does not wear O2 continuously at home. Patient requests to be discharged in the care of his daughter who will be here around 2:[address] which patient declined at this time. Patient remained hemodynamically stable alert and oriented throughout the rest of the stay. Patient to be discharged home with instructions to follow-up with PCP return to the ER for any worsening. She was placed on doxycycline to treat empirically prophylactically for possible infiltrate. HPI General Mode of arrival: EMS . Date/Time Provider Initiated Documentation: 04/12/21 08:52 . Limitations to Documentation: language barrier (Non-verbal) . Information obtained by: EMS, RN notes reviewed and old records reviewed . HPI Narrative: 65-year-old male presents to the ER via EMS with chief complaint of possible foreign body in the airway. Patient has a tracheostomy and he was self suctioning when the end of the suction catheter broke off inside the stoma. He denies any pain at this time. He does report some increased shortness of breath. He is on 10 L nonrebreather over the stoma upon arrival. He does have some scattered wheezing to his right side. He does not have the tracheostomy tube in place upon arrival. History is somewhat limited due to patient being nonverbal. He has a past medical history of COPD, GERD, malignant neoplasm of hypopharynx, pulmonary hypertension. Related Data Home Medications Medication Instructions Recorded Confirmed Oxygen l INHALATION IN THE DAYTIME #0.5 05/13/13 03/29/21 oxygen-air delivery systems #1 05/13/13 03/29/21 acetaminophen [Tylenol] 650 mg PO Q4H PRN PRN #0 tab 05/21/18 04/12/21 ipratropium bromide 17 1 puff IH QID PRN #12.9 gm 01/17/20 04/12/21 mcg/actuation HFA aerosol inhaler omeprazole 40 mg capsule,delayed 40 mg PO DAILY #90 cap 04/22/20 04/12/21 release magnesium oxide 400 mg (241.3 mg 400 mg PO HS #90 tab 06/03/20 04/12/21 magnesium) tablet aspirin 81 mg PO DAILY 10/25/20 04/12/21 nifedipine 30 mg PO DAILY 10/25/20 04/12/21 albuterol sulfate 90 mcg/actuation 2 puff IH Q6H PRN #18 gm 11/06/20 04/12/21 aerosol inhaler budesonide-formoterol HFA 80 2 puff IH BID #10.2 gm 11/09/20 04/12/21 mcg-4.5 mcg/actuation aerosol inhaler albuterol sulfate 2.5 mg INHALATION Q2H PRN #180 ml 12/03/20 04/12/21 ipratropium bromide 17 1 puff IH QID #12.9 gm 12/03/20 04/12/21 mcg/actuation HFA aerosol inhaler ipratropium 0.5 mg-albuterol 3 mg 3 ml INHALATION QID PRN #180 ml 01/07/21 04/12/21 (2.5 mg base)/3 mL nebulization soln azithromycin 500 mg tablet 500 mg PO QMWF #18 tab 01/27/21 04/12/21 doxycycline hyclate 100 mg PO BID 7 Days #14 tab 04/12/21 Previous Rx's Medication Instructions Recorded acetaminophen [Tylenol] 650 mg PO Q4H PRN PRN #0 tab 05/21/18 ipratropium bromide 17 1 puff IH QID PRN #12.9 gm 01/17/20 mcg/actuation HFA aerosol inhaler omeprazole 40 mg capsule,delayed 40 mg PO DAILY #90 cap 04/22/20 release magnesium oxide 400 mg (241.3 mg 400 mg PO HS #90 tab 06/03/20 magnesium) tablet albuterol sulfate 90 mcg/actuation 2 puff IH Q6H PRN #18 gm 11/06/20 aerosol inhaler budesonide-formoterol HFA 80 2 puff IH BID #10.2 gm 11/09/20 mcg-4.5 mcg/actuation aerosol inhaler albuterol sulfate 2.5 mg INHALATION Q2H PRN #180 ml 12/03/20 ipratropium bromide 17 1 puff IH QID #12.9 gm 12/03/20 mcg/actuation HFA aerosol inhaler ipratropium 0.5 mg-albuterol 3 mg 3 ml INHALATION QID PRN #180 ml 01/07/21 (2.5 mg base)/3 mL nebulization soln azithromycin 500 mg tablet 500 mg PO QMWF #18 tab 01/27/21 doxycycline hyclate 100 mg PO BID 7 Days #14 tab 04/12/21 Allergies Allergy/AdvReac Type Severity Reaction Status Date / Time Influenza Virus Vaccines Allergy Severe Verified 04/12/21 08:41 pneumococcal vaccine Allergy Severe swells up Verified 04/12/21 08:41 General CIERRA: 2 Review of Systems All systems reviewed & are unremarkable except as noted in HPI and below ENT Ears, Nose, Mouth, and Throat: Reports as per HPI Cardiovascular Cardiovascular: Denies chest pain, Denies leg edema and Reports dyspnea Respiratory Respiratory: Reports as per HPI, Reports cough, Reports hemoptysis, Reports dyspnea and Reports wheezing Allergic/Immunologic Allergic/Immunologic: Reports wheezing COUNT INCLUDES THE [facility] Active Problem List Hemoptysis (Acute) Pneumonia (Acute) Foreign body in airway (Acute) Elevated TSH (Acute) Actinic keratosis (Acute) Tracheostomy dependence (Acute) Hypertension (Chronic) Pulmonary hypertension (Chronic) PAD (peripheral artery disease) (Chronic) AAA (abdominal aortic aneurysm) (Chronic) Nocturnal leg cramps (Chronic 11/10/16) Edema (Chronic) GERD (gastroesophageal reflux disease) (Chronic) COPD (chronic obstructive pulmonary disease) (Chronic) Polycythemia (Chronic) Medical History Acute respiratory failure (07/01/13) With hopoxia, chronic Co2 retention, bilateral infiltrates. 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 Paternal Grandfather No problems noted. Maternal Grandmother Neoplasm Paternal Grandmother No problems noted. Sister No problems noted. Sister , 50? No problems noted. Son No problems noted. Daughter No problems noted. Brother No problems noted. Social History Smoking/Tobacco Use Status: Former Tobacco Use tobacco type: cigarettes Quit Date: 05/15/13 Tobacco: How many years used: 35 Second Hand Exposure: Yes Smoking risk assessment performed?: Yes Alcohol Intake: former Drug use: Never Substance use type: does not use Counseling given: No Counseling provided: none Caregiver/Support person: No Housing: house Communication Needs: None Do you need help understanding health information?: Rarely Pets and animals: Yes Pets and animals: dog(s) Sexually active: No Do you think of yourself as: straight/heterosexual Current gender identity: male What is your relationship status?: How often do you talk on the phone with friends or family?: never How often do you get together with friends or relatives?: three or more times per week How often do you attend uatsdin or jehovah's witness services?: decline to answer Do you belong to any clubs or organized social groups?: no Panel score (0-1 are the most socially isolated patients): 1 What type of physical activity do you participate in: decline to answer Duration: decline to answer Frequency: decline to answer Irene/Christianity: No preference Special irene needs: No Seatbelt use: always Helmet use: No Drive intox or ride w/intox wagon driver salesperson: No Do you feel safe at home: Yes Do you feel safe in your relationship?: Yes Exam Narrative Exam Narrative: Constitutional: Alert and oriented x3. Appears stated age. Normal body habitus. Non-verbal Head: Normocephalic, no trauma. Eyes: Pupils PERRL, Red reflex noted, EOM's intact. Eyelids symmetrical without lesions, discharge, or swelling. ENT: Bilateral TM's WNL, External ear normal to inspection, no mastoid TTP, swelling, or erythema, Nasal turbinates WNL, no nasal discharge. Normal dentition, Posterior pharynx WNL, no exudate. Chest: RRR, Normal S1, S2, distal pulses intact. Resp: Has a Trach stoma, Scattered wheezes noted to bilateral lobes, Worse on right. Abdomen: Soft, non-distended, Normoactive bowel sounds all 4 quads. Musculoskeletal: Unable to assess gait, 5/5 strength to all four extremities. Skin: No suspicious rashes or lesions. Capillary refill less than 2 sec. Neurologic: Cranial nerves II-XII intact. Alert and oriented x 3. Motor: No deficits noted. Sensory: Intact bilaterally all 4 extremities. Reflexes: DTR's intact bilaterally.. Hematologic/Lymphatic: No ecchymosis, no lymphadenopathy.
--- NOTE | 2021-04-12 08:45 | DI.CT_ITS ---
Exam(s) CT CHEST WO EXAM: CT CHEST WO CLINICAL HISTORY: Possible foreign body. TECHNIQUE: Multi planar reconstructions were performed. CONTRAST MATERIAL: None COMPARISON: CT CT CHEST/ABD W from 05/20/2018 CR,XR XR CHEST 2V PA LATERAL from 10/25/2020 FINDINGS: CHEST: LUNGS: There is a 7 x 6 millimeter noncalcified nodule in the left lower lobe (series 2/image 42). N o other focal left lung findings and no pleural effusion. In the right lung there is mild infiltrate noted in the right middle lobe, including a few air bronch ograms in the medial segment. Relative sparing of the right lower lobe. No pleural effusions on eit her side. There is a tubular density in the trachea which measures 8 cm and extends down to almost subcarinal l evel. MEDIASTINUM: There is no obvious hilar nor mediastinal adenopathy. Visualized thyroid unremarkable.No obvious axillary adenopathy CARDIAC: Heart size is normal. There is no pericardial effusion.Diameter of the thoracic aorta is in creased. The ascending thoracic aorta exhibits diameter 4 cm. The diameter of the mid aortic arch i s 3.4 cm. Diameter of the proximal descending thoracic aorta is 3.2 cm and diameter of the distal de scending thoracic aorta is also elevated at 3.2 cm. The lower most images of this study are in the u pper abdomen and reveal aneurysm of at least 3.6 cm. VISUALIZED UPPER ABDOMEN: Gallbladder surgically absent OSSEOUS: . No adrenal masses.. IMPRESSION: 1. There is an 8 cm long tubular catheter in the trachea. This requires removal. Apparently broken off during suctioning. 2. There is mild infiltrate in the right middle lobe.. There is also a 7 millimeter noncalcified nod ule in the left lower lobe which will require appropriate follow-up including repeat CT scan in 3 mon ths. 3. No pleural effusions. Prominent diameter of the thoracic aorta as described above. Also presence of partially visualized a bdominal aortic aneurysm, as described above. RADIATION DOSE DELIVERED: 820.03mGy.cm Total DLP DATA REPOSITORY: All CT scans at this facility are submitted to the National Radiology Data Registry (NRDR) Dose Index Registry (DIR) with the [employer] (A[employer]). RADIATION OPTIMIZATION: All CT scans at this facility use at least one of these dose optimization te chniques: automated exposure control; mA and/or kV adjustment per patient size (includes targeted exa ms where dose is matched to clinical indication); or iterative reconstruction.
--- NOTE | 2021-04-12 09:04 | W.PULMCON ---
General Date Of Service Date of service: 04/12/21 Time of Service: 11:00 Reason for Consult: Foreign body aspiration into airway Assessment and Plan Assessment and plan (1) Foreign body in airway: Status: Acute (2) Pulmonary hypertension: Status: Chronic (3) Pneumonia: Status: Acute Qualifiers: Pneumonia type: due to unspecified organism Laterality: right Lung location: unspecified part of lung Qualified Code(s): J18.9 - Pneumonia, unspecified organism (4) Hemoptysis: Status: Acute (5) COPD (chronic obstructive pulmonary disease): Status: Chronic Assessment and plan: This is a 65 yo man with a tracheostomy stoma (without a trach) in respiratory distress after his yankuer suction catheter broke off in his trachea while he was suctioning his secretions. Given the patients severe pulmonary hypertension, and tenuous cardiac and pulmonary issues I planned and performed the bronchoscopy awake to limit his procedural risk. The 8cm piece of the suction catheter was removed from the right mainstem bronchus via flexible bronchoscopy without complication. During the bronchoscopy it was noted that there was significant erythema and inflammation in addition to white to yellow thick secretions. He should be using the rigid suction catheters for trach stoma suctioning. Instead an NT flexible suction catheter should be used. He has inhalers that home which he should continue to take. Additionally, given the inflammation present a one time dose of steroids would be beneficial in addition to an antibiotic course for suspected pneumonia. He did not have any lacerations of punctures to the airway that I saw on bronchoscopy. Since the foreign object was only present for a short amount of time I doubt he will have any exterminator termite sequelae from this event. Foreign body aspiration - flexible bronchoscopic removal of foreign body from right mainstem bronchus performed - given inflammation, recommend a one time 125mg methylpred dose - return to ED COPD - continue home inhaler regimen Hemoptysis - monitored in ED for 2 hours post procedure to ensure improvement - return to ED if increasing symptoms Post obstructive pneumonia - recommend a course of doxycycline Qualifiers: COPD type: emphysema Emphysema type: panlobular Qualified Code(s): J43.1 - Panlobular emphysema History of Present Illness Narrative: This is a 65 yo man with history of a laryngectomy and tracheostomy stoma. He also has COPD, heart failure and significant pulmonary hypertension. He has a trach stoma but has not used a trach cannula in many years. he has been using a rigid yankuer to suction deep in through his stoma. Today he was suctioning in this manner and the suction catheter broke off and fell into his airway. I was consulted for this problem. He has had significant respiratory distress since the suction catheter broke off in his airway. He has a significant amount of coughing. His interview is limited by both his distress as well as his trach stoma with no speaking valve. Review of Systems All systems reviewed & are unremarkable except as noted in HPI and below [facility] Active Problem List Elevated TSH (Acute) Actinic keratosis (Acute) Tracheostomy dependence (Acute) Hypertension (Chronic) Pulmonary hypertension (Chronic) PAD (peripheral artery disease) (Chronic) AAA (abdominal aortic aneurysm) (Chronic) Nocturnal leg cramps (Chronic 11/10/16) Edema (Chronic) GERD (gastroesophageal reflux disease) (Chronic) COPD (chronic obstructive pulmonary disease) (Chronic) Polycythemia (Chronic) Medical History Acute respiratory failure (07/01/13) With hopoxia, chronic Co2 retention, bilateral infiltrates. 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 Paternal Grandfather No problems noted. Maternal Grandmother Neoplasm Paternal Grandmother No problems noted. Sister No problems noted. Sister , 50? No problems noted. Son No problems noted. Daughter No problems noted. Brother No problems noted. Social History Smoking/Tobacco Use Status: Former Tobacco Use tobacco type: cigarettes Quit Date: 05/15/13 Tobacco: How many years used: 35 Second Hand Exposure: Yes Smoking risk assessment performed?: Yes Alcohol Intake: former Drug use: Never Substance use type: does not use Counseling given: No Counseling provided: none Caregiver/Support person: No Housing: house Communication Needs: None Do you need help understanding health information?: Rarely Pets and animals: Yes Pets and animals: dog(s) Sexually active: No Do you think of yourself as: straight/heterosexual Current gender identity: male What is your relationship status?: How often do you talk on the phone with friends or family?: never How often do you get together with friends or relatives?: three or more times per week How often do you attend rastafarian or orthodoxy services?: decline to answer Do you belong to any clubs or organized social groups?: no Panel score (0-1 are the most socially isolated patients): 1 What type of physical activity do you participate in: decline to answer Duration: decline to answer Frequency: decline to answer Irene/Faith: No preference Special irene needs: No Seatbelt use: always Helmet use: No Drive intox or ride w/intox local company intermodal truck driver: No Do you feel safe at home: Yes Do you feel safe in your relationship?: Yes Visit Medication and Allergies Allergies Influenza Virus Vaccines Allergy (Severe, Verified 04/12/21 08:41) pneumococcal vaccine Allergy (Severe, Verified 04/12/21 08:41) swells up Exam Const General: in distress moderate and respiratory Nutritional Appearance: well nourished [facility] Head: normocephalic Ears: external ears normal and no periauricular adenopathy General nose exam: nasal mucous membranes and turbinates normal Face and sinus: sinuses nontender Mouth: oropharynx normal and moist mucous membranes Teeth and gingiva: dentition normal Eyes General: appearance normal, both eyes and all related structures Pupils: PERRL Neck Neck: normal visual inspection and no lymphadenopathy Chest Chest: normal inspection of the chest Resp Effort & Inspection: normal respiratory effort Auscultation: clear to auscultation bilaterally, no rales, no rhonchi and wheezes (Right sided wheezing) Cardio Rate: regular rate Rhythm: regular rhythm Heart Sounds: S1 normal, S2 normal and no murmurs Pulses: radial pulses present bilaterally GI Inspection: normal to inspection Palpation: soft Skin General skin exam: no rashes or lesions noted Neuro General: patient alert, patient awake and patient oriented x3 Extrem General: no clubbing, cyanosis or edema Psych Mental Status: mental status grossly normal Affect: normal affect Attitude: cooperative Results Last Vital Signs Temp 36.5 C 04/12/21 08:33 Pulse 98 H 04/12/21 08:33 Resp 20 04/12/21 08:33 BP 138/80 04/12/21 08:33 Pulse Ox 99 04/12/21 08:33 Labs Result diagrams: 04/12/21 09:20 04/12/21 09:20
[2021-04-12 09:12] LABS: Source Nasal/Nares
[2021-04-12 09:30] LABS: Abs Immature Grans 0.06 10^3/uL (0.0-0.06); Absolute Basophil Count 0.04 10^3/uL (0.0-0.2); Absolute Eosinophil Count 0.18 10^3/uL (0.0-0.7); Absolute Lymphocyte Count 1.25 10^3/uL (1.2-3.4); Absolute Monocyte Count 0.51 10^3/uL (0.1-0.8); Absolute Neutrophil Count 6.67 10^3/uL (1.2-6.7); Basophils % 0.5; Eosinophils % 2.1; HCT 45.3 % (40.0-50.0); HGB 15.3 g/dL (13.5-17.5); Immature Grans % 0.7; Lymphocytes % 14.4; MCH 31.1 pg (27.0-33.0); MCHC 33.8 % (32.0-36.0); MCV 92.1 fL (80-95); MPV 8.3 fL (8.0-11.0); Monocytes % 5.9; Neutrophils % 76.4; Nucleated RBC 0 %; Platelet Count 231 10^3/uL (130-400); RBC 4.92 10^6/uL (4.36-5.78); RDW 12.4 % (11.8-14.1); RDW-SD 41.8 fL; WBC 8.71 10^3/uL (4.4-10.8)
[2021-04-12 09:40] LABS: ALT 74 U/L (16-63); AST 41 U/L (15-37); Albumin 3.7 g/dL (3.4-5.0); Alkaline Phosphatase 178 U/L (46-116); Anion Gap 8.2 mmol/L (3-11); BUN 18 mg/dL (7-18); Bilirubin, Total 0.5 mg/dL (0.2-1.0); CO2 29.8 mmol/L (21.0-32.0); Calcium 8.5 mg/dL (8.5-10.1); Chloride 101 mmol/L (98-107); Glucose 118 mg/dL (74-106); Magnesium 2.2 mg/dL (1.8-2.4); Potassium 4.1 mmol/L (3.5-5.1); Sodium 139 mmol/L (136-145); Total Protein 8.2 g/dL (6.4-8.2)
[2021-04-12 09:54] LABS: COVID-19 PCR Negative (Negative)
--- NOTE | 2021-04-12 10:44 | NUR.NOTE ---
Bias Cutting Machine Operator Vertical in to remove FB at 1040. Verbal order for 1mg IV Versed. Medication administered at 1044. Time out completed, pt name and verified. Respiratory at bedside x3. RN Beausoleil recording. Lidocaine administered through stoma at 1045. BP running q 3min. BP currently 136/113. HR 125, SPo2 98. RR 49. FB found at 1049. FB removed by food service counter clerk at 1051. Pt tolerated well. Pt remains awake, alert and oriented. VS remained stable: BP 124/71, HR 121, Spo2 96%. and RR 27. Will continue to monitor. Nursing Note:
[2021-04-12] MEDS: Midazolam 5 MG/5 ML VIAL (10:54)
[2021-04-12] MEDS: Doxycycline Hyclate 100 MG CAP PO (11:11)
--- NOTE | 2021-04-12 11:34 | RESPIRATORY ---
RT to ED for foreign body removal via bronchoscopy. Pt sitting high fowlers, trach mask in place with 45L/90% FiO2 humidified oxygen, via high flow. Emergency equipment at head of bed. Foreign body removed successfully and pt recovering well with O2 sat 95%
--- NOTE | 2021-04-12 11:36 | W.PM.OP ---
Date of service: 04/12/21 Time of Service: 11:00 Operative Note Operative Note Bronchoscopy with foreign body removal Date:04/12/21 Time:11:15 Indication:Foreign body aspiration Procedure performed: Flexible bronchoscopy Sedation plan: Light Conscious sedation Medications used: 1mg Versed, given 4 mg morphine prior to my procedure, 4cc of 1% lidocaine Informed consent (verbal) was obtained after the risks and benefits or the procedure were discussed. The patient?s nasal passage was numbed with 1% topical lidocaine with aerosolizer through his tracheostomy stoma. A proper and complete OR compliant time out was performed. The therapeutic 6.2mm Olympus bronchoscope was inserted through the tracheostomy stoma. The trachea was midline and without lesion but had evidence of significant irritation. There was a minor amount of blood present on the workman in addition to the erythema. Although the preceeding CT scan showed the foreign object sitting on the karen in the trachea, by my bronchoscopic evaluation it had migrated to the right mainstem bronchus and was almost completely obstructing the airway. I directed alligator forceps biopsy forceps towards the foreign body and was able to grasp the foreign object and safely remove it through the patients stoma. The forgeing object was then confirmed to be the end of a yankuer suction catheter, approximately 3 inches in length. I then re-inserted the bronchoscope to evaluate the are the foreign object was located. There was significant right mainstem erythema, inflammation as well as white, thick secretions. There was some degree of airway narrowing that was due to the inflammation from the foreign object. There was no residual foreign object seen. There was no laceration of the airways visible. The bronchoscope was then removed and the case terminated. The patient will be observed in the ED for 2 hours to ensure hemoptysis has resolved. If his hemoptysis has improved then he is safe for discharge home. Samples collected:none Testing ordered:none Complications:None Ivy Shepherd MD Pulmonary & Critical Care Medicine
[2021-04-12] MEDS: methylPREDNISolone SUCC 125 MG VIAL IVP (12:12)
== END 2021-04-12 14:46 | disposition home or self-care (01) ==
LOC: ER 12:23
PROVIDERS: Emergency Provider Registered Nurse Emergency; PCP Nurse Practitioner Family
DX: T17.598A Other foreign object in bronchus causing other injury, initial encounter (principal); R06.02 Shortness of breath; R04.2 Hemoptysis; J98.09 Other diseases of bronchus, not elsewhere classified; Y84.8 Other medical procedures as the cause of abnormal reaction of the patient, or of later complication, without mention of misadventure at the time of the procedure; Z93.0 Tracheostomy status; Z20.822 Contact with and (suspected) exposure to COVID-19; Z03.818 Encounter for observation for suspected exposure to other biological agents ruled out
CPT/HCPCS: 31635; 36415; 71250; 80053; 87635; 96374; 96375; 99285; 83735; 85025; J2250; J2930

== ENCOUNTER 2021-09-15 01:14 | Outpatient (CLI) | payer MEDICARE, MEDICAID, SELFPAY ==
[2021-09-15 12:57] LABS: FREE T4 0.88 ng/dL (0.76-1.46); TSH 3.24 uIU/mL (0.36-3.74)
== END 2021-09-15 01:15 | disposition home or self-care (01) ==
LOC: LOS 01:15
PROVIDERS: PCP Nurse Practitioner Family; Visit Provider Nurse Practitioner Family
DX: R79.89 Other specified abnormal findings of blood chemistry (principal); I10 Essential (primary) hypertension; R94.6 Abnormal results of thyroid function studies
CPT/HCPCS: 36415; 84439; 84443

== ENCOUNTER 2021-10-11 18:21 | Inpatient (IN) | payer MEDICARE, MEDICAID, SELFPAY ==
[2021-10-11] VITALS (52 sets, daily range): BP systolic 85–139; BP diastolic 47–110; PULSE 73–132; RESP 0–49; TEMP 36.7; O2SAT 83–100
--- NOTE | 2021-10-11 18:15 | RT.EKG_ITS ---
APPROVED REPORT Exam: Resting ECG Reason for Exam: SOB Patient Location: E HR:112 bpm ECG Measurements Heart Rate 112 AXIS WV 155 P 43 QRSd 101 QRS 28 QT 344 T 48 QTc 470 Conclusion Sinus tachycardia...rate> 99
--- NOTE | 2021-10-11 18:42 | ED.GENADUL_ITS ---
Discharge Plan Discharge Details Chief Complaint: SOB Primary Care Provider: Van Xie ED Provider: Elio Nash Home Meds and New Rx's Prescriptions: No Action nifedipine 60 mg tablet extended release 60 mg PO DAILY Qty: 90 3RF (DME) oxygen-air delivery systems Device Inhalation NIGHTLY Qty: 1 Rx Instructions: 2.5 LPM Oxygen EACH Inhalation IN THE DAYTIME Qty: 0.5 Label Comments: 11/10/16 uses 2L. DL Rx Instructions: O.5 LITER IN THE DAYTIME Atrovent HFA 17 mcg/actuation HFA aerosol inhaler 1 puff IH QID PRN (Reason: shortness of breath or wheezing) Qty: 12.9 4RF magnesium oxide 400 mg (241.3 mg magnesium) tablet 400 mg PO HS Qty: 90 4RF albuterol sulfate [Ventolin HFA] 90 mcg/actuation HFA aerosol inhaler 2 puff IH Q6H PRN (Reason: shortness of breath or wheezing) Qty: 18 11RF albuterol sulfate 2.5 mg /3 mL (0.083 %) solution for nebulization 2.5 mg inhalation Q2H PRN (Reason: shortness of breath or wheezing) Qty: 180 3RF ipratropium-albuterol 0.5 mg-3 mg(2.5 mg base)/3 mL solution for nebulization 3 ml inhalation QID PRN (Reason: wheezing) Qty: 180 4RF omeprazole 40 mg capsule,delayed release(DR/EC) 40 mg PO DAILY Qty: 90 3RF Atrovent HFA 17 mcg/actuation HFA aerosol inhaler 1 puff IH QID Qty: 12.9 5RF azithromycin 500 mg tablet 500 mg PO QMWF Qty: 18 3RF budesonide-formoterol [Symbicort] 80-4.5 mcg/actuation HFA aerosol inhaler 2 puff IH BID Qty: 10.2 4RF acetaminophen [Tylenol] 325 mg Tablet 650 mg PO Q4H PRN PRNQty: 0 0RF aspirin 81 mg Tablet,Delayed Release (Dr/Ec) 81 mg PO DAILY Medical Decision Making 65-year-old gentleman presents to the emergency department with 2 weeks of ongoing symptoms. Increased shortness of breath his work of breathing. Apparently thinks that worse for the past few days. On arrival the patient appeared to be in moderate distress. He was treated with steroids and relational therapies. At some point I did consider putting extremity trach and putting him on BiPAP but his symptoms improved significantly. Chest x-ray does not reveal any significant infiltrates. Blood work is at baseline. He is COVID-positive. His was sick 2 weeks ago with COVID. He is not vaccinated. The case was discussed with Dr Melo, he will be admitted AFTER A DOSE OF DECADRON. HPI General Date/Time Provider Initiated Documentation: 10/11/21 18:30 . HPI Narrative: 65-year-old gentleman presented to the emergency room for evaluation of increased shortness of breath for the past 2 weeks as well abdominal pain associate with diarrhea. Infection his symptoms are started today therefore he was taken to the emergency department. He endorses his unquantified weight loss in the past 2 weeks. Question recent COVID exposure in this gentleman who is not vaccinated. He does endorse some intermittent headaches. No chest pain. Chronic but cough. No back pain. No nausea no vomiting. Diarrhea is associated with diffuse abdominal discomfort. Related Data Home Medications Medication Instructions Recorded Confirmed Oxygen l inhalation IN THE DAYTIME ##0.5 05/13/13 09/27/21 oxygen-air delivery systems ##1 05/13/13 09/27/21 acetaminophen 325 mg tablet 650 mg PO Q4H PRN PRN #0 tabs 05/21/18 10/11/21 (Tylenol) ipratropium bromide 17 1 puff inhalation QID PRN 01/17/20 10/11/21 mcg/actuation HFA aerosol inhaler shortness of breath or wheezing (Atrovent HFA) #12.9 grams magnesium oxide 400 mg (241.3 mg 400 mg PO HS #90 tabs 06/03/20 10/11/21 magnesium) tablet aspirin 81 mg tablet,delayed 81 mg PO DAILY 10/25/20 10/11/21 release albuterol sulfate 90 mcg/actuation 2 puff inhalation Q6H PRN 11/06/20 10/11/21 aerosol inhaler (Ventolin HFA) shortness of breath or wheezing #18 grams albuterol sulfate 2.5 mg/3 mL 2.5 mg (3 mL) inhalation Q2H PRN 12/03/20 10/11/21 (0.083 %) solution for nebulization shortness of breath or wheezing #180 mL ipratropium 0.5 mg-albuterol 3 mg 3 ml inhalation QID PRN wheezing 01/07/21 10/11/21 (2.5 mg base)/3 mL nebulization #180 mL soln omeprazole 40 mg capsule,delayed 40 mg PO DAILY #90 caps 04/28/21 10/11/21 release ipratropium bromide 17 1 puff inhalation QID #12.9 grams 07/09/21 10/11/21 mcg/actuation HFA aerosol inhaler (Atrovent HFA) azithromycin 500 mg tablet 500 mg PO QMWF #18 tabs 07/22/21 10/11/21 nifedipine 60 mg tablet,extended 60 mg PO DAILY #90 tabs 09/27/21 10/11/21 release budesonide-formoterol HFA 80 2 puff inhalation BID #10.2 grams 10/01/21 10/11/21 mcg-4.5 mcg/actuation aerosol inhaler (Symbicort) Previous Rx's Medication Instructions Recorded acetaminophen 325 mg tablet 650 mg PO Q4H PRN PRN #0 tabs 05/21/18 (Tylenol) ipratropium bromide 17 1 puff inhalation QID PRN 01/17/20 mcg/actuation HFA aerosol inhaler shortness of breath or wheezing (Atrovent HFA) #12.9 grams magnesium oxide 400 mg (241.3 mg 400 mg PO HS #90 tabs 06/03/20 magnesium) tablet albuterol sulfate 90 mcg/actuation 2 puff inhalation Q6H PRN 11/06/20 aerosol inhaler (Ventolin HFA) shortness of breath or wheezing #18 grams albuterol sulfate 2.5 mg/3 mL 2.5 mg (3 mL) inhalation Q2H PRN 12/03/20 (0.083 %) solution for nebulization shortness of breath or wheezing #180 mL ipratropium 0.5 mg-albuterol 3 mg 3 ml inhalation QID PRN wheezing 01/07/21 (2.5 mg base)/3 mL nebulization #180 mL soln omeprazole 40 mg capsule,delayed 40 mg PO DAILY #90 caps 04/28/21 release ipratropium bromide 17 1 puff inhalation QID #12.9 grams 07/09/21 mcg/actuation HFA aerosol inhaler (Atrovent HFA) azithromycin 500 mg tablet 500 mg PO QMWF #18 tabs 07/22/21 nifedipine 60 mg tablet,extended 60 mg PO DAILY #90 tabs 09/27/21 release budesonide-formoterol HFA 80 2 puff inhalation BID #10.2 grams 10/01/21 mcg-4.5 mcg/actuation aerosol inhaler (Symbicort) Allergies Allergy/AdvReac Type Severity Reaction Status Date / Time Influenza Virus Vaccines Allergy Severe Verified 09/27/21 09:53 pneumococcal vaccine Allergy Severe swells up Verified 09/27/21 09:53 General Stated Complaint: SOB CIERRA: 3 Review of Systems Narrative: Constitutional. See HPI HEENT negative Cardiovascular no chest pain, no palpitations Respiratory see HPI GI see HPI negative MSK he does endorse some loss of muscle mass Skin no rashes Neuro see HPI Psych positive anxiety Endo positive weight loss Hematological not on any blood thinners. PFSH All Active Problems (Updated 10/11/21 @ 22:09 by Onel Melo) COVID-19 (Acute) COPD with exacerbation (Acute) Hemoptysis (Acute) Pneumonia (Acute) Foreign body in airway (Acute) Elevated TSH (Acute) Actinic keratosis (Acute) Tracheostomy dependence (Acute) Hypertension (Chronic) Pulmonary hypertension (Chronic) Echocardiogram [facility] – [place] 2010, reduced RV global function, PAP 67 mm, normal LV systolic function with EF of 60%, 4+ tricuspid insufficiency. PAD (peripheral artery disease) (Chronic) Complete R iliac artery occlusion AAA (abdominal aortic aneurysm) (Chronic) Nocturnal leg cramps (Chronic 11/10/16) Edema (Chronic) GERD (gastroesophageal reflux disease) (Chronic) COPD (chronic obstructive pulmonary disease) (Chronic) Polycythemia (Chronic) Likely due to chronic hypoxemia. Active Problem List Hemoptysis (Acute) Pneumonia (Acute) Foreign body in airway (Acute) Elevated TSH (Acute) Actinic keratosis (Acute) Tracheostomy dependence (Acute) Hypertension (Chronic) Pulmonary hypertension (Chronic) PAD (peripheral artery disease) (Chronic) AAA (abdominal aortic aneurysm) (Chronic) Nocturnal leg cramps (Chronic 11/10/16) Edema (Chronic) GERD (gastroesophageal reflux disease) (Chronic) COPD (chronic obstructive pulmonary disease) (Chronic) Polycythemia (Chronic) Medical History Acute respiratory failure (07/01/13) With hopoxia, chronic Co2 retention, bilateral infiltrates. 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 Paternal Grandfather No problems noted. Maternal Grandmother Neoplasm Paternal Grandmother No problems noted. Sister No problems noted. Sister , 50? No problems noted. Son No problems noted. Daughter No problems noted. Brother No problems noted. Social History Smoking/Tobacco Use Status: Former Tobacco Use tobacco type: cigarettes Quit Date: 05/15/13 Tobacco: How many years used: 35 Second Hand Exposure: Yes Smoking risk assessment performed?: Yes Alcohol Intake: former Drug use: Never Substance use type: does not use Counseling given: No Counseling provided: none Caregiver/Support person: No Housing: house Communication Needs: None Do you need help understanding health information?: Rarely Pets and animals: Yes Pets and animals: dog(s) Sexually active: No Do you think of yourself as: straight/heterosexual Current gender identity: male What is your relationship status?: How often do you talk on the phone with friends or family?: never How often do you get together with friends or relatives?: three or more times per week How often do you attend rastafari or adventism services?: decline to answer Do you belong to any clubs or organized social groups?: no Panel score (0-1 are the most socially isolated patients): 1 What type of physical activity do you participate in: decline to answer Duration: decline to answer Frequency: decline to answer Irene/Holiness: No preference Special irene needs: No Seatbelt use: always Helmet use: No Drive intox or ride w/intox route cdl driver: No Do you feel safe at home: Yes Do you feel safe in your relationship?: Yes Exam Narrative Exam Narrative: Awake alert mild distress, PERRLA EOMI MMM HEENT trach site dry Chest decreased breath sounds bilaterally. No wheezing. No crackles. Yes Heart regular rhythm and rate no murmurs rubs gallop Abdomen soft diffuse discomfort, no rebound Back normal inspection Skin no rashes Neuro grossly intact Extremities no edema Course Vital Signs Vital signs: Vital Signs Pulse 106 H 10/11/21 18:26 Respiratory Rate 36 H 10/11/21 18:26 Blood Pressure 114/73 10/11/21 18:26 Pulse Oximetry 92 10/11/21 18:26 Pulse 106 H 10/11/21 18:26 Respiratory Rate 36 H 10/11/21 18:26 Respiratory Effort Labored 10/11/21 18:34 Blood Pressure 114/73 10/11/21 18:26 Blood Pressure Position Sitting 10/11/21 18:26 Pulse Oximetry 92 10/11/21 18:26 Oxygen Delivery Method Trach Collar 10/11/21 18:26 Pain Level 5 10/11/21 18:26
--- NOTE | 2021-10-11 18:45 | DI.RAD_ITS ---
Exam(s) XR PORTABLE CHEST AP EXAM: XR PORTABLE CHEST AP CLINICAL HISTORY: danyell. TECHNIQUE: 2D digital imaging was performed. COMPARISON: CR,XR XR CHEST 2V PA LATERAL from 10/25/2020 FINDINGS: Single AP lordotic portable view. Heart size is upper normal. The mediastinum is not widened. No new infiltrates nor obvious pleural effusions. IMPRESSION: No acute pulmonary findings on this single AP portable view of the chest. DATA REPOSITORY: RADIATION DOSE DELIVERED: All CT scans at this facility use at least one of these dose optimization techniques: automated exposure control; mA and/or kV adjustment per patient size (includes targeted e xams where dose is matched to clinical indication); or iterative reconstruction.
[2021-10-11] MEDS: MAGNESIUM SULFATE 2 GM/50 ML BAG IVPB (19:21)
[2021-10-11] MEDS: methylPREDNISolone SUCC 125 MG VIAL IVP (19:21)
[2021-10-11] MEDS: Albuterol/Ipratropium 3 ML UPD VIAL UPD (19:22)
[2021-10-11] MEDS: Albuterol 2.5 MG/3 ML INH SOLN VIAL UPD (19:22)
[2021-10-11 19:43] LABS: Source Nasal/Nares
[2021-10-11 19:48] LABS: Abs Immature Grans 0.04 10^3/uL (0.0-0.06); Absolute Basophil Count 0.02 10^3/uL (0.0-0.2); Absolute Eosinophil Count 0.04 10^3/uL (0.0-0.7); Absolute Lymphocyte Count 0.82 10^3/uL (1.2-3.4); Absolute Monocyte Count 0.75 10^3/uL (0.1-0.8); Absolute Neutrophil Count 6.85 10^3/uL (1.2-6.7); Basophils % 0.2; Eosinophils % 0.5; HCT 41.1 % (40.0-50.0); HGB 14.2 g/dL (13.5-17.5); Immature Grans % 0.5; Lymphocytes % 9.6; MCH 30.9 pg (27.0-33.0); MCHC 34.5 % (32.0-36.0); MCV 89 fL (80-95); MPV 9.3 fL (8.0-11.0); Monocytes % 8.8; Neutrophils % 80.4; Platelet Count 343 10^3/uL (130-400); RDW 12.5 % (11.8-14.1); RDW-SD 40.9 fL; WBC 8.52 10^3/uL (4.4-10.8)
--- NOTE | 2021-10-11 20:05 | DI.VRAD_ITS ---
PROCEDURE INFORMATION: Exam: XR Chest Exam date and time: 10/11/2021 7:26 PM Age: 65 years old Clinical indication: Other: Karon TECHNIQUE: Imaging protocol: XR of the chest. Views: 1 view. COMPARISON: CT CHEST WO 04/12/2021 9:09 AM FINDINGS: Lungs: Lungs are symmetrically hyperinflated. No focal consolidation. There is coarsening of the perihilar and basilar interstitial markings, favor chronic finding. Pleural spaces: No visible pleural effusion. No pneumothorax. Heart/Mediastinum: Cardiomediastinal contours accentuated by portable technique, not enlarged. Bones/joints: Multilevel thoracic spondylosis. No acute osseous finding. IMPRESSION: 1. No focal consolidation. 2. Coarsening of the perihilar and basilar interstitial markings. Favor chronic finding. Dictated and Authenticated by: Steven Hermosillo MD. Ordering:SHAY Ballard MD
[2021-10-11 20:13] LABS: ALT 47 U/L (16-63); AST 28 U/L (15-37); Albumin 3.1 g/dL (3.4-5.0); Alkaline Phosphatase 130 U/L (46-116); Anion Gap 10.6 mmol/L (3-11); BUN 17 mg/dL (7-18); Bilirubin, Total 1.7 mg/dL (0.2-1.0); CO2 28.4 mmol/L (21.0-32.0); CREATININE 0.8 mg/dL (0.70-1.30); Calcium 8.4 mg/dL (8.5-10.1); Chloride 97 mmol/L (98-107); Glucose 101 mg/dL (74-106); Magnesium 2.4 mg/dL (1.8-2.4); Potassium 3.5 mmol/L (3.5-5.1); Sodium 136 mmol/L (136-145); Total Protein 8.7 g/dL (6.4-8.2); Troponin I < 50 ng/L (<or=60)
[2021-10-11 20:43] LABS: COVID-19 PCR POSITIVE (Negative)
[2021-10-11] MEDS: Normal Saline 1,000 ML 1000 ML IV (20:57)
[2021-10-11 21:29] LABS: NT-proBNP 242 pg/mL (<300)
--- NOTE | 2021-10-11 22:07 | W.PM.HP.N ---
Date of service: 10/11/21 Time of Service: 21:07 Assessment and Plan Assessment and plan (1) COPD with exacerbation: Start date: 10/11/21 Status: Acute Assessment and plan: This is a 65-year-old gentleman who has had 2-week history of progressive respiratory symptoms presenting with severe respiratory distress responding well to nebulizers and IV Solu-Medrol. 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 He is doing well with O2 supplementation. Since admission he has been sleeping comfortably without tachypnea. He does have positive test for COVID-19 and most likely was infected with his testing +2 weeks ag in no acute symptoms to inpatient should he will still be in isolation and treated for COVID-19 his acute because of his compromised state. (2) COVID-19: Start date: 10/11/21 Status: Acute Assessment and plan: Patient will be started on remdesivir and dexamethasone has been given Solu-Medrol in the ED. COVID-19 protocol for other medical therapy with labs as appropriate and patient will be in isolation. Patient will be placed on Zithromax daily having treatment on Zithromax 3 times a week chronically. (3) Tracheostomy dependence: Status: Chronic Assessment and plan: Tracheostomy care and oxygen per tracheostomy with high flow if necessary. Current oxygen needs are not escalating. (4) Pulmonary hypertension: Status: Chronic Assessment and plan: Patient does have a history of pulmonary hypertension and may go into flash edema. Watch closely for need for diuresis. History of Present Illness History of Present Illness Chief Complaint: Shortness of breath for 2 weeks with cough Narrative: This is a 55-year-old male patient status post tracheostomy for laryngeal cancer who has been sick for 2 weeks at home with his tested positive for COVID-19 2 weeks ago and the patient having progressive respiratory symptoms presented to the ED for evaluation. He was found to have COVID-19 testing and what appeared to be COPD exacerbation. He responded well to Medrol and nebulizer treatments and was in much less distress. At 1 point he was going to be placed on BiPAP but this was not necessary. He is a full code. This hospitalization he was much more comfortable and has been sleeping. He was nonverbal but whispering and offered no further history. See ED report for full review of history. He denies any hemoptysis or productive sputum. He denies any chest pain but was feeling chest pressure with shortness of breath. Review of Systems Narrative: 13 point review of systems otherwise unrevealing or stable. PFSH All Active Problems COVID-19 (Acute) COPD with exacerbation (Acute) Hemoptysis (Acute) Pneumonia (Acute) Foreign body in airway (Acute) Elevated TSH (Acute) Actinic keratosis (Acute) Tracheostomy dependence (Chronic) Hypertension (Chronic) Pulmonary hypertension (Chronic) Echocardiogram [facility] [place] 2010, reduced RV global function, PAP 67 mm, normal LV systolic function with EF of 60%, 4+ tricuspid insufficiency. PAD (peripheral artery disease) (Chronic) Complete R iliac artery occlusion AAA (abdominal aortic aneurysm) (Chronic) Nocturnal leg cramps (Chronic 11/10/16) Edema (Chronic) GERD (gastroesophageal reflux disease) (Chronic) COPD (chronic obstructive pulmonary disease) (Chronic) Polycythemia (Chronic) Likely due to chronic hypoxemia. Medical History Acute respiratory failure (07/01/13) With hopoxia, chronic Co2 retention, bilateral infiltrates. 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 Paternal Grandfather No problems noted. Maternal Grandmother Neoplasm Paternal Grandmother No problems noted. Sister No problems noted. Sister , 50? No problems noted. Son No problems noted. Daughter No problems noted. Brother No problems noted. Social History Smoking/Tobacco Use Status: Former Tobacco Use tobacco type: cigarettes Quit Date: 05/15/13 Tobacco: How many years used: 35 Second Hand Exposure: Yes Smoking risk assessment performed?: Yes Alcohol Intake: former Drug use: Never Substance use type: does not use Counseling given: No Counseling provided: none Caregiver/Support person: No Housing: house Communication Needs: None Do you need help understanding health information?: Rarely Pets and animals: Yes Pets and animals: dog(s) Sexually active: No Do you think of yourself as: straight/heterosexual Current gender identity: male What is your relationship status?: How often do you talk on the phone with friends or family?: never How often do you get together with friends or relatives?: three or more times per week How often do you attend islam or lutheran services?: decline to answer Do you belong to any clubs or organized social groups?: no Panel score (0-1 are the most socially isolated patients): 1 What type of physical activity do you participate in: decline to answer Duration: decline to answer Frequency: decline to answer Irene/Samaritan: No preference Special irene needs: No Seatbelt use: always Helmet use: No Drive intox or ride w/intox transit mixer driver: No Do you feel safe at home: Yes Do you feel safe in your relationship?: Yes Meds Allergies and Home Medications Allergies Allergy/AdvReac Type Severity Reaction Status Date / Time Influenza Virus Vaccines Allergy Severe Verified 09/27/21 09:53 pneumococcal vaccine Allergy Severe swells up Verified 09/27/21 09:53 Home Medications Medication Instructions Recorded Confirmed Type Oxygen l inhalation IN THE DAYTIME ##0.5 05/13/13 09/27/21 History oxygen-air delivery systems ##1 05/13/13 09/27/21 History acetaminophen 325 mg tablet 650 mg PO Q4H PRN PRN #0 tabs 05/21/18 10/11/21 Rx (Tylenol) ipratropium bromide 17 1 puff inhalation QID PRN 01/17/20 10/11/21 Rx mcg/actuation HFA aerosol inhaler shortness of breath or wheezing (Atrovent HFA) #12.9 grams magnesium oxide 400 mg (241.3 mg 400 mg PO HS #90 tabs 06/03/20 10/11/21 Rx magnesium) tablet aspirin 81 mg tablet,delayed 81 mg PO DAILY 10/25/20 10/11/21 History release albuterol sulfate 90 mcg/actuation 2 puff inhalation Q6H PRN 11/06/20 10/11/21 Rx aerosol inhaler (Ventolin HFA) shortness of breath or wheezing #18 grams albuterol sulfate 2.5 mg/3 mL 2.5 mg (3 mL) inhalation Q2H PRN 12/03/20 10/11/21 Rx (0.083 %) solution for nebulization shortness of breath or wheezing #180 mL ipratropium 0.5 mg-albuterol 3 mg 3 ml inhalation QID PRN wheezing 01/07/21 10/11/21 Rx (2.5 mg base)/3 mL nebulization #180 mL soln omeprazole 40 mg capsule,delayed 40 mg PO DAILY #90 caps 04/28/21 10/11/21 Rx release ipratropium bromide 17 1 puff inhalation QID #12.9 grams 07/09/21 10/11/21 Rx mcg/actuation HFA aerosol inhaler (Atrovent HFA) azithromycin 500 mg tablet 500 mg PO QMWF #18 tabs 07/22/21 10/11/21 Rx nifedipine 60 mg tablet,extended 60 mg PO DAILY #90 tabs 09/27/21 10/11/21 Rx release budesonide-formoterol HFA 80 2 puff inhalation BID #10.2 grams 10/01/21 10/11/21 Rx mcg-4.5 mcg/actuation aerosol inhaler (Symbicort) Exam Narrative Exam Narrative: General: Patient appears older than stated age, whispering instead of talking loudly with a tracheostomy. He is in no acute distress lying in bed with head of bed 30 degree angle. He is alert and oriented to person and place. HEENT: Normocephalic, eyes with pupils equal and reactive light symmetrically, extraocular movement intact and sclera anicteric. Oropharynx with moist mucosa. Neck: Supple without JVD. Tracheostomy intact. Back: Stooped posture without CVA tenderness. Lungs: Breath sounds diffusely with no focalizing rales or rhonchi. Fair aeration. Heart: Regular rate and rhythm with no appreciable murmur or gallop. Heart sounds are distant. Abdomen: Mildly obese contour, soft nontender to palpation with no palpable hepatosplenomegaly. Genitalia/rectal: Exam deferred. Extremities: Without clubbing, cyanosis or grossly pitting edema. Fair capillary refill. No joint swelling with fair range of motion. Skin: Pale, warm and dry with rough texture. Fair turgor. Neuro: Cranial nerves II through XII gross intact, no focalizing motor deficits. Psych: Patient appears to have normal mood, flattened affect with good eye contact. No abnormal thought processes. Remote and recent memory appear to be grossly intact. Results Imaging Imaging Studies: EXAM:? XR PORTABLE CHEST AP CLINICAL HISTORY: ? danyell. ? TECHNIQUE:? 2D digital imaging was performed. COMPARISON:? CR,XR XR CHEST 2V PA ? LATERAL from 10/25/2020 FINDINGS: Single AP lordotic portable view. Heart size is upper normal.? The mediastinum is not widened. No new infiltrates nor obvious pleural effusions. IMPRESSION: No acute pulmonary findings on this single AP portable view of the chest. Labs Result diagrams: 10/12/21 05:58 10/12/21 05:58 Labs: Laboratory Results - last 24 hr 10/11/21 10/11/21 10/11/21 19:34 19:34 19:34 WBC 8.52 RBC 4.60 Hgb 14.2 Hct 41.1 MCV 89 MCH 30.9 MCHC 34.5 RDW 12.5 Plt Count 343 MPV 9.3 Immature Gran % 0.5 Neutrophils % 80.4 Lymphocytes % 9.6 Monocytes % 8.8 Eosinophils % 0.5 Basophils % 0.2 Nucleated RBC % 0.0 Absolute Neutrophils 6.85 H Absolute Lymphocytes 0.82 L Absolute Monocytes 0.75 Absolute Eosinophils 0.04 Absolute Basophils 0.02 Sodium 136 Potassium 3.5 Chloride 97 L Carbon Dioxide 28.4 Anion Gap 10.6 BUN 17 Creatinine 0.8 Estimated GFR/1.73 m2 >= 60.00 Glucose 101 Calcium 8.4 L Magnesium 2.4 Total Bilirubin 1.7 H AST 28 ALT 47 Alkaline Phosphatase 130 H Troponin I < 50 NT-Pro-B Natriuret Pep Total Protein 8.7 H Albumin 3.1 L COVID-19 Source Nasal/Nares SARS-CoV-2 (PCR) POSITIVE A* 10/11/21 19:34 WBC RBC Hgb Hct MCV MCH MCHC RDW Plt Count MPV Immature Gran % Neutrophils % Lymphocytes % Monocytes % Eosinophils % Basophils % Nucleated RBC % Absolute Neutrophils Absolute Lymphocytes Absolute Monocytes Absolute Eosinophils Absolute Basophils Sodium Potassium Chloride Carbon Dioxide Anion Gap BUN Creatinine Estimated GFR/1.73 m2 Glucose Calcium Magnesium Total Bilirubin AST ALT Alkaline Phosphatase Troponin I NT-Pro-B Natriuret Pep 242 Total Protein Albumin COVID-19 Source SARS-CoV-2 (PCR) Last Vital Signs Pulse 84 10/11/21 21:04 Resp 30 H 10/11/21 21:12 BP 134/102 H 10/11/21 21:04 Pulse Ox 96 10/11/21 21:10
[2021-10-11] MEDS: Dexamethasone 10 MG/ML VIAL IVP (22:23)
[2021-10-11 22:41] LABS: Troponin I < 50 ng/L (<or=60)
[2021-10-12] VITALS (127 sets, daily range): BP systolic 106–127; BP diastolic 62–70; PULSE 68–114; RESP 11–48; TEMP 36.3; O2SAT 85–98
[2021-10-12] MEDS: Normal Saline 500 ML 30 ML IV (00:21)
[2021-10-12] MEDS: Magnesium Oxide 400 MG TAB PO ×2 (00:21→20:42)
[2021-10-12] MEDS: Enoxaparin 40 MG/0.4 ML SYR SC ×2 (00:21→20:42)
[2021-10-12] MEDS: REMDESIVIR 200 MG in Normal Saline 250 ML 250 MG IVPB (00:22)
[2021-10-12] MEDS: Water,Injection,Sterile 10 ML VIAL ×2 (01:05→01:06)
[2021-10-12] MEDS: Normal Saline Flush 10 ML SYR IVP ×3 (01:29→20:42)
[2021-10-12] MEDS: AZITHROMYCIN 500 MG in Normal Saline 250 ML 250 MG IVPB (02:27)
[2021-10-12 06:24] LABS: Abs Immature Grans 0.02 10^3/uL (0.0-0.06); Absolute Basophil Count 0.01 10^3/uL (0.0-0.2); Absolute Lymphocyte Count 0.47 10^3/uL (1.2-3.4); Absolute Monocyte Count 0.13 10^3/uL (0.1-0.8); Absolute Neutrophil Count 3.17 10^3/uL (1.2-6.7); Basophils % 0.3; HCT 34.5 % (40.0-50.0); HGB 11.8 g/dL (13.5-17.5); Immature Grans % 0.5; Lymphocytes % 12.4; MCH 31.1 pg (27.0-33.0); MCHC 34.2 % (32.0-36.0); MCV 91 fL (80-95); MPV 9.2 fL (8.0-11.0); Monocytes % 3.4; Neutrophils % 83.4; Platelet Count 289 10^3/uL (130-400); RDW 12.3 % (11.8-14.1)
[2021-10-12 06:38] LABS: ALT 40 U/L (16-63); AST 24 U/L (15-37); Albumin 2.4 g/dL (3.4-5.0); Alkaline Phosphatase 113 U/L (46-116); Anion Gap 7.1 mmol/L (3-11); BUN 15 mg/dL (7-18); Bilirubin, Total 0.8 mg/dL (0.2-1.0); CO2 29.9 mmol/L (21.0-32.0); CREATININE 0.7 mg/dL (0.70-1.30); Calcium 7.7 mg/dL (8.5-10.1); Chloride 101 mmol/L (98-107); Glucose 170 mg/dL (74-106); Potassium 3.8 mmol/L (3.5-5.1); Sodium 138 mmol/L (136-145); Total Protein 7.3 g/dL (6.4-8.2)
[2021-10-12 07:03] LABS: Diff Comment Agrees w/ Instrument
[2021-10-12 07:04] LABS: RBC Morphology Normal
[2021-10-12 07:54] LABS: Lab Add On Test TP
[2021-10-12] MEDS: Zinc Sulfate 220 MG TAB PO (08:55)
[2021-10-12] MEDS: Cholecalciferol (Vitamin D3) 1,000 UNIT TAB 2000 UNITS PO (08:56)
[2021-10-12] MEDS: Ascorbic Acid 500 MG TAB 1000 MG PO ×2 (08:56→20:42)
[2021-10-12] MEDS: Aspirin E.C. 81 MG TABEC PO (08:56)
[2021-10-12] MEDS: NIFEdipine-CR 30 MG TABCR 60 MG PO (08:56)
[2021-10-12] MEDS: Dexamethasone 10 MG/ML VIAL 6 MG IVP (08:56)
[2021-10-12] MEDS: Omeprazole 20 MG CAPCR 40 MG PO (08:56)
--- NOTE | 2021-10-12 09:04 | INITIAL_ITS ---
- If Service Date Differs Date of service: 10/12/21 Time of Service: 09:04 Care Management Initial Assess REASON FOR HOSPITALIZATION:: Covid, COPD exacerbation PAST MEDICAL HISTORY/PAST SURGICAL HISTORY:: All Active Problems (Updated 10/11/21 @ 22:09 by Onel Melo). COVID-19 (Acute). COPD with exacerbation (Acute). Hemoptysis (Acute). Pneumonia (Acute). Foreign body in airway (Acute). Elevated TSH (Acute). Actinic keratosis (Acute). Tracheostomy dependence (Acute). Hypertension (Chronic). Pulmonary hypertension (Chronic). Echocardiogram [facility] [place] 2010, reduced RV global function, PAP 67 mm, normal LV systolic function with EF of 60%, 4+ tricuspid insufficiency. PAD (peripheral artery disease) (Chronic). Complete R iliac artery occlusion. AAA (abdominal aortic aneurysm) (Chronic). Nocturnal leg cramps (Chronic 11/10/16). Edema (Chronic). GERD (gastroesophageal reflux disease) (Chronic). COPD (chronic obstructive pulmonary disease) (Chronic). Polycythemia (Chronic). Likely due to chronic hypoxemia. Active Problem List . Hemoptysis (Acute). Pneumonia (Acute). Foreign body in airway (Acute). Elevated TSH (Acute). Actinic keratosis (Acute). Tracheostomy dependence (Acute). Hypertension (Chronic). Pulmonary hypertension (Chronic). PAD (peripheral artery disease) (Chronic). AAA (abdominal aortic aneurysm) (Chronic). Nocturnal leg cramps (Chronic 11/10/16). Edema (Chronic). GERD (gastroesophageal reflux disease) (Chronic). COPD (chronic obstructive pulmonary disease) (Chronic). Polycythemia (Chronic). Medical History. Acute respiratory failure (07/01/13). With hopoxia, chronic Co2 retention, bilateral infiltrates. Cholecystitis. Choledocholithiasis. Chronic respiratory failure with hypoxia. at baseline at 28% FiO2 via mist collar. Community acquired pneumonia. COPD (chronic obstructive pulmonary disease). GERD (gastroesophageal reflux disease). Hemoptysis. History of tobacco use. Malignant neoplasm of hypopharynx. Pancreatitis, acute. Polyp of colon (08/30/13). 08/30/13; Hyperplastic polyp. 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 Pulmonary HTN. Tobacco use. Recent attempt at cessation. Surgical History . Colonoscopy - MAC. 08/30/13; AWAITING PATH REORT. History of esophageal surgery. Status post laryngectomy. Status post laryngectomy (02/04/16) PREVIOUS FUNCTIONAL STATUS/SOCIAL/FAMILY SUPPORTS:: Hussein lives in [place], alone in a home that he owns. He is independent at baseline and does not use any assistive device. His Daughter Christine helps with grocery shopping and transportation when needed. CURRENT FUNCTIONAL STATUS:: Hussein remains on covid precautions in the ICU. He is being treated for Covid and getting steroids, IV abx and nebulizer treatments. He has a tracheostomy. He worked with PT today and would benefit from [facility] PT to improve current mobility level. ADVANCE DIRECTIVES:: On File, [facility] is daughter Zoë Nelson Has patient been provided with info about the portal/API?: Yes Did the patient sign up for the portal?: No CODE STATUS:: Full Code INSURANCE COVERAGE / FINANCIAL ISSUES:: Medicare. Medicaid CURRENT HOME/COMMUNITY SERVICES/EQUIPMENT:: None PRIMARY CARE PHYSICIAN:: Van Xie POTENTIAL DISCHARGE NEEDS:: Follow up appointments, New [facility] PT PATIENT/FAMILY EDUCATION NEEDS:: Review discharge instructions, limitations, medications and plan to follow up with community providers. ask me three. TRANSPORTATION:: Via private vehicle with family. PLAN:: Anticipate, Hussein will be discharged home with New [facility] RN/PT when medically ready per provider. He will follow up with his community providers and discharge plan of care as prescribed.
--- NOTE | 2021-10-12 10:39 | PT.INIE ---
Date of service: 10/12/21 Time of Service: 10:39 PT Notes Visit Reasons: Exacerbation of COPD, COVID-19 Infection Physical Therapy Inpatient Initial Evaluation Date: 10/12/2021 Referring Doctor: Onel Melo MD PT Orders: PT CONSULT: Limited ability Precautions: Fall. Standard. Activity as tolerated. COVID 19 infection precautions. Tracheostomy dependent. Patient Profile/Admitting Diagnosis: Hussein is a six 65-year-old male with a tracheostomy in place who presented to the ED with physical Therapy Inpatient Discharge Summary Complaint of increasing shortness of breath that limited him for the past 2 weeks. Patient is diagnosed with COPD exacerbation, COVID-19 infection, and pulmonary hypertension. PMHX: All Active Problems?(Updated 10/11/21 @ 22:09 by Onel Melo) COVID-19 (Acute) COPD with exacerbation (Acute) Hemoptysis (Acute) Pneumonia (Acute) Foreign body in airway (Acute) Elevated TSH (Acute) Actinic keratosis (Acute) Tracheostomy dependence (Acute) Hypertension (Chronic) Pulmonary hypertension (Chronic) [place] [facility] [place], reduced RV global function, PAP 67 mm, normal LV systolic function with EF of 60%, 4+ tricuspid insufficiency. PAD (peripheral artery disease) (Chronic) Complete R iliac artery occlusion AAA (abdominal aortic aneurysm) (Chronic) Nocturnal leg cramps (Chronic 11/10/16) Edema (Chronic) GERD (gastroesophageal reflux disease) (Chronic) COPD (chronic obstructive pulmonary disease) (Chronic) Polycythemia (Chronic) Likely due to chronic hypoxemia. Active Problem List? Hemoptysis (Acute) Pneumonia (Acute) Foreign body in airway (Acute) Elevated TSH (Acute) Actinic keratosis (Acute) Tracheostomy dependence (Acute) Hypertension (Chronic) Pulmonary hypertension (Chronic) PAD (peripheral artery disease) (Chronic) AAA (abdominal aortic aneurysm) (Chronic) Nocturnal leg cramps (Chronic 11/10/16) Edema (Chronic) GERD (gastroesophageal reflux disease) (Chronic) COPD (chronic obstructive pulmonary disease) (Chronic) Polycythemia (Chronic) Medical History Acute respiratory failure (07/01/13) With hopoxia, chronic Co2 retention, bilateral infiltrates. 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 Colonoscopy - MAC 08/30/13; AWAITING PATH REPORT History of esophageal surgery Status post laryngectomy Status post laryngectomy (02/04/16) Social History/Home Situation: Lives alone in a private home with 14 steps to enter, rails on both sides. Independent with all aspects as prior to admission. Does not use any assistive device. Daughter helps with grocery shopping. Drives from time to time. Has about 40-50 feet from bedroom to the kitchen, 20 feet from bedroom to the bathroom. Equipment Owned/DME: Tracheostomy Subjective: Agreeable to PT consult. Denies chest pain, headache, dizziness throughout session. Objective: General Observation: Tracheostomy in place. Telemetry monitoring in place. Mental Status: Alert and oriented as to person, place, time, and purpose. Able to pay attention, focus, and respond appropriately. Pain: Denies Vital Signs: Oxygen saturation stayed above 92% on 3 L of oxygen supplementation ROM: Right Upper Extremity: Shoulder Flexion WFL. Shoulder abduction WFL. Elbow flexion WFL. Wrist flexion WFL. Functional opening and closing of hand WFL. Left Upper Extremity: Shoulder Flexion WFL. Shoulder abduction WFL. Elbow flexion WFL. Wrist flexion WFL. Functional opening and closing of hand WFL. Right Lower Extremity: Hip flexion WFL. Hip abduction WFL. Knee flexion WFL. Ankle dorsiflexion WFL. Ankle plantarflexion WFL. Left Lower Extremity: Hip flexion WFL. Hip abduction WFL. Knee flexion WFL. Ankle dorsiflexion WFL. Ankle plantarflexion WFL. Strength: Right Upper Extremity: Shoulder flexors 4/5. Shoulder abductors 4/5. Elbow flexors 5/5. Elbow extensors 5/5. Political Reporter strong. Left Upper Extremity: Shoulder flexors 4/5. Shoulder abductors 4/5. Elbow flexors 5/5. Elbow extensors 5/5. Political Reporter strong. Right Lower Extremity: Hip flexors 4/5. Hip abductors 4/5. Knee flexors 5/5. Knee extensors 4/5. Ankle dorsiflexors 4-/5. Ankle plantarflexors 5/5. Left Lower Extremity: Hip flexors 4/5. Hip abductors 4/5. Knee flexors 5/5. Knee extensors 4/5. Ankle dorsiflexors 4-/5. Ankle plantarflexors 5/5. Bed Mobility/Transfers: Rolling independent Supine to sit independent Sit to supine independent Sit to stand independent Stand to sit independent Bed to reclining chair independent Reclining chair to bed independent Gait: Instructed patient with level surface ambulation of 15 feet x 2 requiring stand by assist. Justina decreased. Was able to tolerate short distance in-room ambulation but needed to hold onto bed rail for minimal support x 2 but no loss of balance. Oxygen saturation stayed above 92% on oxygen supplementation. Balance: Static Sitting: Normal Dynamic Sitting: Normal Static Standing: Good Dynamic Standing: Fair Special Tests: Mobility Limitations Standardized Measure [facility] AM-PAC 6 clicks Basic Mobility Inpatient Short Form: Raw Score: 22 CMS Score: 21% deficit Informed Consent/Education: Patient was instructed in purpose of PT consult and plan of care. Agreeable to proceed with established PT POC to achieve personal goals. Assessment: Patient demonstrates limitation of mobility performance but no desaturation. Has 14 steps to enter and may require HH PT to ensure that homes safety check and training is done with patient to increase efficiency and conserve energy at home. Patient presents with clinical signs and symptoms consistent with current/admitting diagnoses that have resulted to mobility limitations, gait instability, generalized weakness, and overall ADL decline as demonstrated by the following impairment level findings: 1. Impaired activity tolerance 2. Shortness of breath 3. Fatigue Impairments are contributing to the following functional limitations: 1. Difficulty with ambulation due to shortness of breath 2. Increased completion time for mobility ADL performance 3. Need for training in steps at home to maximize safety Patient is assessed as a 2 complexity based on the following: History: 65-year-old female with past medical history as indicated above Examination: Demonstrable impairment in strength, balance, and mobility level with underlying impairments and functional limitations as exhibited above as well as deficit score of 21% utilizing the [facility] Mobility Inpatient Short Form Presentation: Evolving Decision Makin moderate complexity Goals: Goals X1 week 1. Supine-Sit independent 2. Sit-Supine independent 3. Sit-Stand independent 4. Stand-Sit independent with no AD 5. Bed-Chair independent with no AD 6. Chair-Bed independent with no AD 7. Independent gait on level surface with use of no AD for at least 100 feet without report of pain nor dyspnea 8. Independent stair negotiation while holding onto B rails for at least 15 steps without report of pain nor dyspnea Plan of Care/Treatment Plan: 1-2x/day, 7 days/week x 1 week. Plan of care has been reviewed with the CREW TEAM MEMBER providing the service under Physical Therapy direction. Initiate Physical Therapy intervention for pain management as needed, strengthening, bed mobility, transfers, gait, stairs, balance training, and use of assistive device. DISCHARGE RECOMMENDATIONS: [] Home with no services [] [X] Home with services. Home when medically cleared by hospitalist. Patient will benefit from home health PT services in order to progress mobility level using least restrictive assistive ambulatory device, assess home safety, identify additional equipment needs, and establish a functional maintenance program that will increase ability of patient to remain at home. [] Home with outpatient PT [] [] SNF for continued rehabilitation [] [] Snf Care [] [] SNF versus LTC based on ability to participate and progress [] TREATMENT CODE/TIME: 47162 x 23 minutes beginning at 10:39 AM. Thank you for the opportunity to participate in the care of this patient. Felicity Slaughter PT, DPT, CLT [facility] [place], [place]
[2021-10-12 10:55] LABS: D-Dimer 952 ng/mlFEU (<500)
[2021-10-12 12:03] LABS: C-Reactive Protein 17.66 mg/dL (0.0-0.3)
--- NOTE | 2021-10-12 20:23 | W.PM.PROGNOT ---
Date of Service Date of service: 10/12/21 Time of Service: 17:25 Assessment and Plan Assessment and plan (1) COPD with exacerbation: Start date: 10/11/21 Status: Acute Assessment and plan: This is a 65-year-old gentleman who has had 2-week history of progressive respiratory symptoms presenting with severe respiratory distress responding well to nebulizers and IV Solu-Medrol. 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 He is doing well with O2 supplementation; now back his baseline of 25% FiO2. Since admission he has been sleeping comfortably without tachypnea. He does have positive test for COVID-19 and most likely was infected with his testing +2 weeks ago. Cont nebs and dexamethasone. Estela d/c tomorrow (2) COVID-19: Start date: 10/11/21 Status: Acute Assessment and plan: Patient will be started on remdesivir and dexamethasone; given Solu-Medrol in the ED. COVID-19 protocol for other medical therapy with labs as appropriate (monitor inflammatory markers). Place in isolation. Patient will be placed on Zithromax daily having treatment on Zithromax 3 times a week chronically. (3) Tracheostomy dependence: Status: Chronic Assessment and plan: Tracheostomy care. (4) Pulmonary hypertension: Status: Chronic Assessment and plan: Patient does have a history of pulmonary hypertension and may go into flash edema. Watch closely for need for diuresis. Subjective Subjective Patient reports: no new complaints, feels better, tolerating a regular diet and afebrile; denies nausea, vomiting or shortness of breath Exam Narrative Exam Narrative: General: Patient appears older than stated age, speaks in a whispher secondary to tracheostomy. He is in no acute distress lying in bed HEENT: Normocephalic,sclera anicteric. Oropharynx with moist mucosa. Neck: Supple without JVD. Tracheostomy intact. Back: Stooped posture without CVA tenderness. Lungs: Breath sounds diffusely with no focalizing rales or rhonchi. Diminished breath sounds Heart: Regular rate and rhythm with no appreciable murmur. Heart sounds are distant. Abdomen: Mildly obese contour, soft nontender Genitalia/rectal: Exam deferred. Extremities: No edema, cyanosis Skin: Pale, warm and dry w/o rash. Neuro: Cranial nerves II through XII gross intact, no focalizing motor deficits. Psych: Patient appears to have normal mood and affect. A&O x 3 Objective Last Vital Signs Temp 36.3 C L 10/12/21 17:29 Pulse 104 H 10/12/21 19:34 Resp 30 H 10/12/21 09:20 BP 123/70 10/12/21 09:14 Pulse Ox 95 10/12/21 09:30 Laboratory Results - last 24 hr 10/11/21 10/11/21 10/11/21 19:34 19:34 22:16 WBC RBC Hgb Hct MCV MCH MCHC RDW Plt Count MPV Immature Gran % Neutrophils % Lymphocytes % Monocytes % Eosinophils % Basophils % Nucleated RBC % Absolute Neutrophils Absolute Lymphocytes Absolute Monocytes Absolute Eosinophils Absolute Basophils RBC Morphology D-Dimer Sodium Potassium Chloride Carbon Dioxide Anion Gap BUN Creatinine Estimated GFR/1.73 m2 Glucose Calcium Total Bilirubin AST ALT Alkaline Phosphatase Troponin I < 50 C-Reactive Protein NT-Pro-B Natriuret Pep 242 Total Protein Albumin SARS-CoV-2 (PCR) POSITIVE A* Add-On Test Request 10/12/21 10/12/21 10/12/21 05:58 05:58 07:53 WBC 3.80 L RBC 3.80 L Hgb 11.8 L D Hct 34.5 L MCV 91 MCH 31.1 MCHC 34.2 RDW 12.3 Plt Count 289 MPV 9.2 Immature Gran % 0.5 Neutrophils % 83.4 Lymphocytes % 12.4 Monocytes % 3.4 Eosinophils % 0.0 Basophils % 0.3 Nucleated RBC % 0.0 Absolute Neutrophils 3.17 Absolute Lymphocytes 0.47 L Absolute Monocytes 0.13 Absolute Eosinophils 0.00 Absolute Basophils 0.01 RBC Morphology Normal D-Dimer Sodium 138 Potassium 3.8 Chloride 101 Carbon Dioxide 29.9 Anion Gap 7.1 BUN 15 Creatinine 0.7 Estimated GFR/1.73 m2 >= 60.00 Glucose 170 H Calcium 7.7 L Total Bilirubin 0.8 AST 24 ALT 40 Alkaline Phosphatase 113 Troponin I C-Reactive Protein NT-Pro-B Natriuret Pep Total Protein 7.3 Albumin 2.4 L SARS-CoV-2 (PCR) Add-On Test Request TP 10/12/21 10/12/21 10/12/21 10:10 10:10 Unknown WBC RBC Hgb Hct MCV MCH MCHC RDW Plt Count MPV Immature Gran % Neutrophils % Lymphocytes % Monocytes % Eosinophils % Basophils % Nucleated RBC % Absolute Neutrophils Absolute Lymphocytes Absolute Monocytes Absolute Eosinophils Absolute Basophils RBC Morphology D-Dimer 952 H Sodium Potassium Chloride Carbon Dioxide Anion Gap BUN Creatinine Estimated GFR/1.73 m2 Glucose Calcium Total Bilirubin AST ALT Alkaline Phosphatase Troponin I C-Reactive Protein 17.66 H NT-Pro-B Natriuret Pep Total Protein Albumin SARS-CoV-2 (PCR) Add-On Test Request Cancelled
[2021-10-13] VITALS (53 sets, daily range): BP systolic 143; BP diastolic 61; PULSE 56–108; RESP 8–36; TEMP 36.3–36.6; O2SAT 83–93
[2021-10-13] MEDS: AZITHROMYCIN 500 MG in Normal Saline 250 ML 250 MG IVPB (00:10)
[2021-10-13] MEDS: REMDESIVIR 100 MG in Normal Saline 250 ML 250 MG IVPB (00:11)
[2021-10-13] MEDS: Dexamethasone 10 MG/ML VIAL 6 MG IVP (08:23)
[2021-10-13] MEDS: Normal Saline Flush 10 ML SYR IVP (08:23)
[2021-10-13] MEDS: Aspirin E.C. 81 MG TABEC PO (08:24)
[2021-10-13] MEDS: Omeprazole 20 MG CAPCR 40 MG PO (08:24)
[2021-10-13] MEDS: NIFEdipine-CR 30 MG TABCR 60 MG PO (08:24)
[2021-10-13] MEDS: Cholecalciferol (Vitamin D3) 1,000 UNIT TAB 2000 UNITS PO (08:25)
[2021-10-13] MEDS: Zinc Sulfate 220 MG TAB PO (08:27)
[2021-10-13] MEDS: Ascorbic Acid 500 MG TAB 1000 MG PO (08:27)
--- NOTE | 2021-10-13 08:27 | W.PM.DS.N ---
Date of service: 10/13/21 Time of Service: 07:28 DS: Diagnosis Discharge Diagnosis (1) COPD with exacerbation: Status: Acute (2) COVID-19: Status: Acute (3) Tracheostomy dependence: Status: Chronic (4) Pulmonary hypertension: Status: Chronic Discharge Plan Disposition Patient Disposition: HOME Condition: Improving Discharge Details Reason For Visit: Exacerbation of COPD, COVID-19 Infection Admit Date/Time: 10/11/21 21:55 Admit Provider: Onel Melo Attending Provider: Onel Melo Primary Care Provider: [facility] Hospital Course Hospital Course: This is a 55-year-old male patient status post tracheostomy for laryngeal cancer who had been sick for 2 weeks at home with his tested positive for COVID-19 2 weeks ago and the patient having progressive respiratory symptoms presented to the ED for evaluation.? He was found to have COVID-19 testing and what appeared to be COPD exacerbation.? He responded well to Medrol and nebulizer treatments and was in much less distress.? At one point he was going to be placed on BiPAP but this was not necessary.? He is a full code.? This hospitalization he was much more comfortable and has been sleeping.? He was nonverbal but whispering and offered no further history.? See ED report for full review of history.? He denies any hemoptysis or productive sputum.? He denies any chest pain but was feeling chest pressure with shortness of breath. IV azithromycin initiated. Covid-19 treatment with remdesivir, dexamethasone initiated. He readily returned to his baseline supplemental O2 needs. He will discharge on prednisone 40mg po daily for 3 more days. He will resume his 3x/week azithromycin. Follow up with PCP in 1-2 weeks. Home Meds and New Rx's Prescriptions: New cholecalciferol (vitamin D3) 25 mcg (1,000 unit) Tablet 2,000 units PO DAILY Qty: 0 0RF prednisone 20 mg tablet 40 mg PO DAILY Qty: 6 0RF Continued nifedipine 60 mg tablet extended release 60 mg PO DAILY Qty: 90 3RF Oxygen EACH Inhalation IN THE DAYTIME Qty: 0.5 Label Comments: 11/10/16 uses 2L. DL Rx Instructions: O.5 LITER IN THE DAYTIME magnesium oxide 400 mg (241.3 mg magnesium) tablet 400 mg PO HS Qty: 90 4RF albuterol sulfate [Ventolin HFA] 90 mcg/actuation HFA aerosol inhaler 2 puff IH Q6H PRN (Reason: shortness of breath or wheezing) Qty: 18 11RF albuterol sulfate 2.5 mg /3 mL (0.083 %) solution for nebulization 2.5 mg inhalation Q2H PRN (Reason: shortness of breath or wheezing) Qty: 180 3RF ipratropium-albuterol 0.5 mg-3 mg(2.5 mg base)/3 mL solution for nebulization 3 ml inhalation QID PRN (Reason: wheezing) Qty: 180 4RF omeprazole 40 mg capsule,delayed release(DR/EC) 40 mg PO DAILY Qty: 90 3RF Atrovent HFA 17 mcg/actuation HFA aerosol inhaler 1 puff IH QID Qty: 12.9 5RF azithromycin 500 mg tablet 500 mg PO QMWF Qty: 18 3RF budesonide-formoterol [Symbicort] 80-4.5 mcg/actuation HFA aerosol inhaler 2 puff IH BID Qty: 10.2 4RF acetaminophen [Tylenol] 325 mg Tablet 650 mg PO Q4H PRN PRNQty: 0 0RF aspirin 81 mg Tablet,Delayed Release (Dr/Ec) 81 mg PO DAILY Discontinued Atrovent HFA 17 mcg/actuation HFA aerosol inhaler 1 puff IH QID PRN (Reason: shortness of breath or wheezing) Qty: 12.9 4RF No Action (DME) oxygen-air delivery systems Device Inhalation NIGHTLY Qty: 1 Rx Instructions: 2.5 LPM Discharge Instructions Instructions: COVID-19 (Coronavirus Disease 2019) (DC) Activity:: Activity as Tolerated Equipment/Supplies:: No Equipment Needed Diet:: Resume usual home diet Discharge Orders Discharge Orders: Discharge Order (Routine); Ordered 10/13/21 Ordered By: Miguel Forman DS: Summary Time Spent with Patient providing and/or coordinating discharge services: Greater than 30 minutes Status at Discharge Functional status at discharge: independent ambulation Overall status at discharge: patient is progressing back to baseline Mental Status: mental status grossly normal Speech and Movement: speech and movement normal Mood: congruent mood Affect: normal affect Exam Psych Mental Status: mental status grossly normal Speech and Movement: speech and movement normal Mood: congruent mood Affect: normal affect DS: Data Vitals/I&O Vitals and I&O: Vital Signs Temperature 36.3 C L 10/13/21 01:38 Temperature Source Temporal Artery Scan 10/13/21 01:38 Pulse 70 10/13/21 01:38 Pulse Rhythm Regular 10/13/21 01:22 Pulse 100 H 10/13/21 07:40 Respiratory Rate 18 10/13/21 04:50 Respiratory Effort 10/13/21 01:22 Respiratory Depth Normal 10/13/21 01:22 Respiratory Pattern Tachypnea 10/13/21 01:22 Blood Pressure 143/61 H 10/13/21 01:38 Blood Pressure Mean 75 10/13/21 00:33 Blood Pressure Position Sitting 10/11/21 23:48 Pulse Oximetry 90 L 10/13/21 07:40 Oxygen Delivery Method Trach Collar 10/13/21 01:38 Oxygen Flow Rate 2.26 10/13/21 01:38 Pain Level 0 10/13/21 01:38 Comment 10/12/21 22:22 Intake & Output 10/12/21 10/12/21 10/13/21 11:59 23:59 11:59 Intake Total 1436 / 2336 900 / 2336 620 / 620 Output Total 1250 / 1875 625 / 1875 825 / 825 Balance 186 / 461 275 / 461 -205 / -205 Weight 97.5 kg Intake: IV 586 / 586 500 / 500 Oral 850 / 1750 900 / 1750 120 / 120 Output: Urine 850 / 1475 625 / 1475 825 / 825 Stool 400 / 400 Other: Urine Color [place] Light Twila Dark Twila Urine Appearance Cloudy Clear Clear Urine Odor Normal Normal None Comment mixed in stool Stool Size Moderate Stool Characteristics Liquid Voiding Methods Urinal Urinal Urinal Data Completed and Pending Labs on day of discharge: Labs from last 24 hours 10/12/21 10/12/21 10:10 10:10 D-Dimer 952 H C-Reactive Protein 17.66 H PFSH All Active Problems COVID-19 (Acute) COPD with exacerbation (Acute) Hemoptysis (Acute) Pneumonia (Acute) Foreign body in airway (Acute) Elevated TSH (Acute) Actinic keratosis (Acute) Tracheostomy dependence (Chronic) Hypertension (Chronic) Pulmonary hypertension (Chronic) Echocardiogram [facility] [place] 2010, reduced RV global function, PAP 67 mm, normal LV systolic function with EF of 60%, 4+ tricuspid insufficiency. PAD (peripheral artery disease) (Chronic) Complete R iliac artery occlusion AAA (abdominal aortic aneurysm) (Chronic) Nocturnal leg cramps (Chronic 11/10/16) Edema (Chronic) GERD (gastroesophageal reflux disease) (Chronic) COPD (chronic obstructive pulmonary disease) (Chronic) Polycythemia (Chronic) Likely due to chronic hypoxemia. Medical History Acute respiratory failure (07/01/13) With hopoxia, chronic Co2 retention, bilateral infiltrates. 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 Paternal Grandfather No problems noted. Maternal Grandmother Neoplasm Paternal Grandmother No problems noted. Sister No problems noted. Sister , 50? No problems noted. Son No problems noted. Daughter No problems noted. Brother No problems noted. Social History Smoking/Tobacco Use Status: Former Tobacco Use tobacco type: cigarettes Quit Date: 05/15/13 Tobacco: How many years used: 35 Second Hand Exposure: Yes Smoking risk assessment performed?: Yes Alcohol Intake: former Drug use: Never Substance use type: does not use Counseling given: No Counseling provided: none Caregiver/Support person: No Housing: house Communication Needs: None Do you need help understanding health information?: Rarely Pets and animals: Yes Pets and animals: dog(s) Sexually active: No Do you think of yourself as: straight/heterosexual Current gender identity: male What is your relationship status?: How often do you talk on the phone with friends or family?: never How often do you get together with friends or relatives?: three or more times per week How often do you attend baptist or protestant services?: decline to answer Do you belong to any clubs or organized social groups?: no Panel score (0-1 are the most socially isolated patients): 1 What type of physical activity do you participate in: decline to answer Duration: decline to answer Frequency: decline to answer Irene/Anglican: No preference Special irene needs: No Seatbelt use: always Helmet use: No Drive intox 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
[2021-10-13] MEDS: Albuterol/Ipratropium 3 ML UPD VIAL IH (08:50)
--- NOTE | 2021-10-13 08:52 | CMDISCH_ITS ---
- If Service Date Differs Date of service: 10/13/21 Time of Service: 08:52 LACE Index Scoring Tool - Questions: Length of Stay (in days): 2 Acuity (Admit via E.D.?): Yes Comorbidities: Chronic Pulmonary Disease, Metastatic Solid Tumor E.D. Visits: 2 - Answers: Total Score: 12 Risk of Readmission: High Risk Care Management Discharge Reason for Hospitalization: Covid, COPD exacerbation Discharge Plan: Hussein is discharged home with New [facility] services. He will transport via private vehicle with family. He will follow up with his community provider's and discharge plan of care as prescribed. Patient/Family Education Needs: Review discharge instructions, limitations, medications and plan to follow up with [facility] and community providers. ask me three. Services Needed at Discharge: Home Health Care Services ([facility], CM left message for [facility] and faxed face to face)
--- NOTE | 2021-10-13 10:57 | PDOC.HHF2F_ITS ---
Home Health Certification Home Health Certification: 1. Encounter Date and Reason I certify that Hussein Barbosa was seen by Miguel Forman MD on 10/13/21 and that I had a [id number] encounter with this patient that meets the physician face to face encounter requirements. 2. Clinical Findings Supporting Skilled Need and Homebound Status I certify that home health services are medically necessary, include either intermittent group home and/or physical/speech therapy, and that this patient is homebound in that absences from the home require considerable and taxing effort and are infrequent or of short duration, or are attributable to the need to receive medical care. [X] (a) Attached documentation from encounter provides clinical findings supporting skilled need and homebound status (including what assistance patient requires to leave the home). The encounter with the patient was in whole, or in part, for the following medical condition, which is the primary reason for home health care: Exacerbation of COPD, COVID-19 Infection Prison: Physical Therapy:Evaluate and treat for endurance, balance, safety. Speech Therapy: Homebound:Need assistance by another person out of the home due to decreased endurance. 3. Certification and Authentication I certify that I composed the above information based on my clinical judgement relating to this patient's medical condition and, if applicable, clinical findings communicated to me by the NPP or inpatient physician who performed the Home Health Referral. All further orders will be obtained through [facility] (Community Based Physician - PCP)
--- NOTE | 2021-10-13 18:00 | PT.INDS ---
Date of service: 10/13/21 PT Notes Visit Reasons: Exacerbation of COPD, COVID-19 Infection Physical Therapy Inpatient Discharge Summary Date: 10/13/2021 Dates of Service: 10/12/2021 only This is a clinical summary of care provided for the duration of dates listed above. No charge was made in the completion of this documentation. Referring Doctor: Onel Melo MD PT Orders: PT CONSULT: Limited ability Precautions: Fall. Standard. Activity as tolerated. COVID 19 infection precautions.? Tracheostomy dependent. Patient Profile/Admitting Diagnosis:? Hussein is a six 65-year-old male with a tracheostomy in place who presented to the ED with physical Therapy Inpatient Discharge Summary Complaint of increasing shortness of breath that limited him for the past 2 weeks.? Patient is diagnosed with COPD exacerbation, COVID-19 infection, and pulmonary hypertension. PMHX: All Active Problems?(Updated 10/11/21 @ 22:09 by Onel Melo) COVID-19 (Acute) COPD with exacerbation (Acute) Hemoptysis (Acute) Pneumonia (Acute) Foreign body in airway (Acute) Elevated TSH (Acute) Actinic keratosis (Acute) Tracheostomy dependence (Acute) Hypertension (Chronic) Pulmonary hypertension (Chronic) Echocardiogram [facility] [place] 2010, reduced RV global function, PAP 67 mm, normal LV systolic function with EF of 60%, 4+ tricuspid insufficiency. PAD (peripheral artery disease) (Chronic) Complete R iliac artery occlusion AAA (abdominal aortic aneurysm) (Chronic) Nocturnal leg cramps (Chronic 11/10/16) Edema (Chronic) GERD (gastroesophageal reflux disease) (Chronic) COPD (chronic obstructive pulmonary disease) (Chronic) Polycythemia (Chronic) Likely due to chronic hypoxemia. Active Problem List? Hemoptysis (Acute) Pneumonia (Acute) Foreign body in airway (Acute) Elevated TSH (Acute) Actinic keratosis (Acute) Tracheostomy dependence (Acute) Hypertension (Chronic) Pulmonary hypertension (Chronic) PAD (peripheral artery disease) (Chronic) AAA (abdominal aortic aneurysm) (Chronic) Nocturnal leg cramps (Chronic 11/10/16) Edema (Chronic) GERD (gastroesophageal reflux disease) (Chronic) COPD (chronic obstructive pulmonary disease) (Chronic) Polycythemia (Chronic) Medical History Acute respiratory failure (07/01/13) With hopoxia, chronic Co2 retention, bilateral infiltrates. 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 Colonoscopy - MAC 08/30/13; AWAITING PATH REPORT History of esophageal surgery Status post laryngectomy Status post laryngectomy (02/04/16) Social History/Home Situation: Lives alone in a private home with 14 steps to enter, rails on both sides.? Independent with all aspects as prior to admission.? Does not use any assistive device.? Daughter helps with grocery shopping.? Drives from time to time.? Has about 40-50 feet from bedroom to the kitchen,? 20 feet from bedroom to the bathroom. Equipment Owned/DME: Tracheostomy Subjective: NT. See most recent QUILTING SUPERVISOR notes. Objective: General Observation:? NT. See most recent QUILTING SUPERVISOR notes. Mental Status: NT. See most recent QUILTING SUPERVISOR notes. Pain: NT. See most recent QUILTING SUPERVISOR notes. Vital Signs: NT. See most recent QUILTING SUPERVISOR notes. ROM: Right Upper Extremity: ? Shoulder Flexion WFL. Shoulder abduction WFL. Elbow flexion WFL. Wrist flexion WFL. Functional opening and closing of hand WFL. Left Upper Extremity:? Shoulder Flexion WFL. Shoulder abduction WFL. Elbow flexion WFL. Wrist flexion WFL. Functional opening and closing of hand WFL. Right Lower Extremity: Hip flexion WFL. Hip abduction WFL. Knee flexion WFL. Ankle dorsiflexion WFL. Ankle plantarflexion WFL. Left Lower Extremity: Hip flexion WFL. Hip abduction WFL. Knee flexion WFL. Ankle dorsiflexion WFL. Ankle plantarflexion WFL. Strength: Right Upper Extremity: Shoulder flexors 4/5. Shoulder abductors 4/5. Elbow flexors 5/5. Elbow extensors 5/5. Manager Primary strong. Left Upper Extremity: Shoulder flexors 4/5. Shoulder abductors 4/5. Elbow flexors 5/5. Elbow extensors 5/5. Manager Primary strong. Right Lower Extremity: Hip flexors 4/5. Hip abductors 4/5. Knee flexors 5/5. Knee extensors 4/5. Ankle dorsiflexors 4-/5. Ankle plantarflexors 5/5. Left Lower Extremity: Hip flexors 4/5. Hip abductors 4/5. Knee flexors 5/5. Knee extensors 4/5. Ankle dorsiflexors 4-/5. Ankle plantarflexors 5/5. Bed Mobility/Transfers: Rolling independent Supine to sit independent Sit to supine independent Sit to stand independent Stand to sit independent Bed to reclining chair independent Reclining chair to bed independent Gait: Instructed patient with level surface ambulation of 15 feet x 2 requiring stand by assist. Justina decreased.? Was able to tolerate short distance in-room ambulation but needed to hold onto bed rail for minimal support x 2 but no loss of balance.? Oxygen saturation stayed above 92% on oxygen supplementation. Balance: Static Sitting: Normal Dynamic Sitting: Normal Static Standing: Good Dynamic Standing:? Fair Assessment:? Patient demonstrates limitation of mobility performance but no desaturation.? Has 14 steps to enter and may require HH PT to ensure that home safety check and training is done with patient to increase efficiency and conserve energy at home. Patient presents with clinical signs and symptoms consistent with current/admitting diagnoses that have resulted to mobility limitations, gait instability, generalized weakness, and overall ADL decline as demonstrated by the following impairment level findings: 1.? Impaired activity tolerance 2.? Shortness of breath 3.? Fatigue Impairments are contributing to the following functional limitations: 1.? Difficulty with ambulation due to shortness of breath 2.? Increased completion time for mobility ADL performance 3.? Need for training in steps at home to maximize safety Goals: Goals X1 week 1. Supine-Sit independent MET 2. Sit-Supine independent MET 3. Sit-Stand independent MET 4. Stand-Sit independent with no AD MET 5. Bed-Chair independent with no AD MET 6. Chair-Bed independent with no AD MET 7. Independent gait on level surface with use of no AD for at least 100 feet without report of pain nor dyspnea NOT MET 8. Independent stair negotiation while holding onto B rails for at least 15 steps without report of pain nor dyspnea NOT MET DISCHARGE RECOMMENDATIONS: [] ? Home with no services [] [X] ? Home with services.? Home when medically cleared by hospitalist.? Patient will benefit from home health PT services in order to progress mobility level using least restrictive assistive ambulatory device, assess home safety, identify additional equipment needs, and establish a functional maintenance program that will increase ability of patient to remain at home. [] ? Home with outpatient PT [] [] ? SNF for continued rehabilitation [] [] ? Prison Care [] [] ? SNF versus LTC based on ability to participate and progress [] TREATMENT CODE/TIME: NC Thank you for the opportunity to participate in the care of this patient. Felicity Slaughter PT, DPT, CLT [facility] [place], [place]
== END 2021-10-13 10:00 | disposition home or self-care (01) | DRG 178 ==
LOC: ER 18:29 → ICU 10-12 00:12
PROVIDERS: Family Medicine; Admitting Provider Family Medicine; Emergency Provider Emergency Medicine; PCP Nurse Practitioner Family; Visit Provider Family Medicine
DX: U07.1 COVID-19 (principal); J44.1 Chronic obstructive pulmonary disease with (acute) exacerbation; Z99.81 Dependence on supplemental oxygen; Z93.0 Tracheostomy status; I07.1 Rheumatic tricuspid insufficiency; I73.9 Peripheral vascular disease, unspecified; I71.4 Abdominal aortic aneurysm, without rupture; G47.62 Sleep related leg cramps; K21.9 Gastro-esophageal reflux disease without esophagitis; R60.0 Localized edema; D75.1 Secondary polycythemia; I27.20 Pulmonary hypertension, unspecified; Z85.818 Personal history of malignant neoplasm of other sites of lip, oral cavity, and pharynx; Z87.891 Personal history of nicotine dependence; Z90.02 Acquired absence of larynx
CPT/HCPCS: 36415; 80053; 87635; 93005; 94640; 96361; 96365; 96366; 96375; 97162; 99285; J1650; 71045; 83735; 83880; 84484; 85025; 85379; 86140; 93010; 99223; 99232; 99239; J0248; J0456; J1100; J2930; J7613; J7620

== ENCOUNTER 2022-03-11 01:41 | Outpatient (CLI) | payer MEDICARE, MEDICAID, SELFPAY ==
[2022-03-11 12:47] LABS: HCT 45.1 % (40.0-50.0); HGB 14.9 g/dL (13.5-17.5); MCH 31.8 pg (27.0-33.0); MCV 96 fL (80-95); MPV 9.4 fL (8.0-11.0); Platelet Count 249 10^3/uL (130-400); RBC 4.69 10^6/uL (4.36-5.78); RDW 12.6 % (11.8-14.1); RDW-SD 44.2 fL; WBC 8.52 10^3/uL (4.4-10.8)
[2022-03-11 12:59] LABS: Hemoglobin A1C 5.6 % (<5.7)
[2022-03-11 13:05] LABS: TSH (W/Ref FT4) 4.48 uIU/mL (0.36-3.74)
[2022-03-11 13:40] LABS: FREE T4 0.87 ng/dL (0.76-1.46)
== END 2022-03-11 01:42 | disposition home or self-care (01) ==
LOC: LOS 01:41
PROVIDERS: PCP Nurse Practitioner Family; Visit Provider Nurse Practitioner Family
DX: R60.9 Edema, unspecified (principal); R79.89 Other specified abnormal findings of blood chemistry; D75.1 Secondary polycythemia; R73.03 Prediabetes
CPT/HCPCS: 36415; 85027; 83036; 84439; 84443

== ENCOUNTER → 2022-04-08 00:40 | Outpatient (CLI) | payer MEDICARE, MEDICAID, SELFPAY ==
--- NOTE | 2022-04-08 07:45 | DI.CTLCSR_ITS ---
Exam(s) CT CHEST LUNG CANCER SCREEN EXAM: CT CHEST LUNG CANCER SCREEN CLINICAL HISTORY: Screening for lung cancer Z87.891 FORMER SMOKER TECHNIQUE: CT examination of the chest was performed utilizing low-dose lung cancer screening protoc ol. COMPARISON: CT CT CHEST WO from 04/12/2021 FINDINGS: Images obtained through the upper abdomen show unremarkable appearance of visualized portions of the liver and spleen. Prior cholecystectomy noted. Unremarkable appearance of visualized portions panc reas, adrenals, and kidneys. Note is made of coronary artery calcification. There is no mediastinal or hilar adenopathy. Mediastinal vascular structures appear intact by noncon trast criteria. Tracheobronchial tree appears intact. No pleural effusion or pleural-based mass. There are severe central lobular pulmonary emphysematous changes. A previously described 7 millimete r mean diameter noncalcified intrapulmonary nodule of the medial left lower lobe is unchanged on toda y's examination. No new nodule identified.. IMPRESSION: Lung RADS Cat 2 - Benign Appearance / Behavior: Nodules with a very low likelihood of becoming a cli nically active cancer due to size or lack of growth Continue annual screening with LDCT in 12 months. Lung-RADS 1.0 CATEGORIES: Category 0 - Prior chest CT exam(s) being located for comparison. Category 1 - Annual screening in 12 months. No nodules or definitely benign nodules. Category 2 - Annual screening in 12 months. Benign appearance. Nodules with low likelihood of becomin g active cancer. Category 3 - 6-month follow-up. Probably benign. Short-term follow-up suggested. Nodules with low lik elihood of becoming active cancer. Category 4A - 3-month follow-up and CT/PET if >8 mm in size. Suspicious finding. Findings which requi re additional testing. Category 4B - Findings which require additional testing and tissue sampling. Suspicious finding. Category 4X - Category 3 or 4 nodules with additional features or imaging findings that increases the suspicion of malignancy. Modifier S- Potentially clinically significant finding. (Non lung cancer) RADIATION DOSE DELIVERED: Total DLP !Error CTDIvol Total DLP DATA REPOSITORY: All CT scans at this facility are submitted to the National Radiology Data Registry (NRDR) Dose Index Registry (DIR) with the [employer] (ACR). RADIATION OPTIMIZATION: All CT scans at this facility use at least one of these dose optimization te chniques: automated exposure control; mA and/or kV adjustment per patient size (includes targeted exa ms where dose is matched to clinical indication); or iterative reconstruction.
== END ==
PROVIDERS: PCP Nurse Practitioner Family; Visit Provider Student in an Organized Health Care Education/Training Program
DX: Z87.891 Personal history of nicotine dependence (principal); Z12.2 Encounter for screening for malignant neoplasm of respiratory organs; R91.1 Solitary pulmonary nodule
CPT/HCPCS: 71271

== ENCOUNTER → 2022-12-28 01:43 | Outpatient (CLI) | payer MEDICARE, MEDICAID, SELFPAY ==
--- NOTE | 2022-12-28 08:15 | DI.CT_ITS ---
Exam(s) CT CHEST PE CTA EXAM: CT CHEST PE CTA CLINICAL HISTORY: continued dyspnea and cough after COPD treatment,HEMOPTYSIS,R04.2,R06.00. TECHNIQUE: Imaging Protocol: Axial CT angiography was performed with multi-slice acquisition and mu lti-planar reconstructions as well as axial, coronal and sagittal MIP reconstructions. CONTRAST MATERIAL: Intravenous: Omnipaque 350 Contrast volume:100 ml COMPARISON: CT CT CHEST/ABD W from 05/20/[address] CHEST LUNG CANCER SCREEN from 04/08/2022 FINDINGS: Pulmonary Arteries: No evidence of filling defect to suggest pulmonary emboli. Tracheobronchial tree: Patent where visualized. Mediastinum and Zohra: No dominant adenopathy or fluid collection. Pulmonary parenchyma: Evaluation is somewhat limited due to respiratory motion and dependent changes. No consolidation or dominant measurable mass. [id number] emphysematous changes. Pleura: No effusion or pneumothorax. Heart: The heart is not dilated. Minimal coronary artery calcifications are seen. Aorta: Thoracic aorta non-dilated. No aneurysm. No dissection. Upper abdomen: Unremarkable. Bones: Unremarkable for age. Tubes, Catheters, and Lines: None IMPRESSION: No evidence of pulmonary embolism or other acute abnormality.. RADIATION DOSE DELIVERED: 407.55mGy.cm Total DLP DATA REPOSITORY: All CT scans at this facility are submitted to the National Radiology Data Registry (NRDR) Dose Index Registry (DIR) with the [employer] ([employer]CR). RADIATION OPTIMIZATION: All CT scans at this facility use at least one of these dose optimization te chniques: automated exposure control; mA and/or kV adjustment per patient size (includes targeted exa ms where dose is matched to clinical indication); or iterative reconstruction.
[2022-12-28 15:32] LABS: CREATININE 0.9 mg/dL (0.70-1.30); Estimated GFR 92.45 (mL/min/1.73m2)
[2022-12-28] MEDS: Normal Saline - Diluent 50 ML VIAL IJ (15:40)
[2022-12-28] MEDS: Normal Saline Flush 10 ML SYR IVP (15:40)
[2022-12-28] MEDS: Omnipaque 350 MG/ML 100 ML BTL IJ (15:41)
== END ==
PROVIDERS: PCP Nurse Practitioner Family; Visit Provider Student in an Organized Health Care Education/Training Program
DX: J44.1 Chronic obstructive pulmonary disease with (acute) exacerbation (principal); R04.2 Hemoptysis; R06.00 Dyspnea, unspecified
CPT/HCPCS: 71275; 82565; J3490

== ENCOUNTER 2023-01-02 16:04 | Outpatient (REF) | payer MEDICARE, MEDICAID, SELFPAY | END 2023-01-02 16:05 | disposition home or self-care (01) | LOC: LBN 16:04 | PROVIDERS: PCP Nurse Practitioner Family; Visit Provider Student in an Organized Health Care Education/Training Program | DX: J43.1 Panlobular emphysema (principal); R09.3 Abnormal sputum | CPT/HCPCS: 87070; 87205 ==

== ENCOUNTER → 2023-04-05 12:46 | Outpatient (BNVA) | payer MEDICARE, MEDICAID, SELFPAY | PROVIDERS: PCP Nurse Practitioner Family; Referring Provider Nurse Practitioner Family; Visit Provider Physician Assistant Surgical | DX: J43.1 Panlobular emphysema (principal); Z79.899 Other long term (current) drug therapy; Z87.891 Personal history of nicotine dependence; J39.8 Other specified diseases of upper respiratory tract; I27.20 Pulmonary hypertension, unspecified; I10 Essential (primary) hypertension | CPT/HCPCS: 99214 ==

== ENCOUNTER → 2023-04-14 00:27 | Outpatient (CLI) | payer MEDICARE, MEDICAID, SELFPAY ==
--- NOTE | 2023-04-14 08:00 | DI.CTLCSR_ITS ---
Exam(s) CT CHEST LUNG CANCER SCREEN EXAM: CT CHEST LUNG CANCER SCREEN CLINICAL HISTORY: Screening for lung cancer,former smoker, z87.891 TECHNIQUE: Imaging Protocol: Axial computed tomography images with coronal and sagittal reformatted images were created and reviewed COMPARISON: CT CT CHEST LUNG CANCER SCREEN from 04/08/[address] CHEST PE CTA from 12/28/2022 FINDINGS: The examination is limited due to patient motion artifact. Tracheobronchial tree: Patent where visualized. Pulmonary parenchyma: Emphysematous changes are seen in the lungs. No architectural distortion. No f ocal infiltrates. Lung Nodules: There has been no change in the 7 mm nodule in the left lower lobe medially. Mediastinum and Zohra: No dominant adenopathy or fluid collection. The esophagus is unremarkable. Lymph nodes: Unremarkable. Pleura: No effusion or pneumothorax. Heart: The heart is not dilated. Coronary artery calcifications are present. No pericardial effusion. Aorta: Thoracic aorta non-dilated.Atherosclerosis is present. Upper abdomen: Status post cholecystectomy. Soft Tissues: Unremarkable. Bones: Within normal limits. IMPRESSION: Stable 7 mm nodule. Lung RADS Cat 2 - Benign Appearance / Behavior: Nodules with a very low likelihood of becoming a clin ically active cancer due to size or lack of growth Lung-RADS 1.0 CATEGORIES: Category 0 - Prior chest CT exam(s) being located for comparison. Category 1 - Annual screening in 12 months. No nodules or definitely benign nodules. Category 2 - Annual screening in 12 months. Benign appearance. Nodules with low likelihood of becomin g active cancer. Category 3 - 6-month follow-up. Probably benign. Short-term follow-up suggested. Nodules with low lik elihood of becoming active cancer. Category 4A - 3-month follow-up and CT/PET if >8 mm in size. Suspicious finding. Findings which requi re additional testing. Category 4B - Findings which require additional testing and tissue sampling. Suspicious finding. Category 4X - Category 3 or 4 nodules with additional features or imaging findings that increases the suspicion of malignancy. Modifier S- Potentially clinically significant finding. (Non lung cancer) RADIATION DOSE DELIVERED: Total DLP Total DLP DATA REPOSITORY: All CT scans at this facility are submitted to the National Radiology Data Registry (NRDR) Dose Index Registry (DIR) with the [employer] (ACR). RADIATION OPTIMIZATION: All CT scans at this facility use at least one of these dose optimization te chniques: automated exposure control; mA and/or kV adjustment per patient size (includes targeted exa ms where dose is matched to clinical indication); or iterative reconstruction.
== END ==
PROVIDERS: PCP Nurse Practitioner Family; Visit Provider Student in an Organized Health Care Education/Training Program
DX: Z87.891 Personal history of nicotine dependence (principal); Z12.2 Encounter for screening for malignant neoplasm of respiratory organs; R91.1 Solitary pulmonary nodule
CPT/HCPCS: 71271

== ENCOUNTER → 2023-05-17 13:58 | Outpatient (BNVA) | payer MEDICARE, MEDICAID, SELFPAY | PROVIDERS: PCP Nurse Practitioner Family; Referring Provider Nurse Practitioner Family; Visit Provider Student in an Organized Health Care Education/Training Program | DX: J43.1 Panlobular emphysema (principal); I27.20 Pulmonary hypertension, unspecified; Z87.891 Personal history of nicotine dependence | CPT/HCPCS: 99214 ==

== ENCOUNTER → 2023-11-13 14:26 | Outpatient (BNVA) | payer MEDICARE, MEDICAID, SELFPAY | PROVIDERS: PCP Nurse Practitioner Family; Referring Provider Nurse Practitioner Family; Visit Provider Physician Assistant Surgical | DX: J43.1 Panlobular emphysema (principal); I27.20 Pulmonary hypertension, unspecified; Z87.891 Personal history of nicotine dependence | CPT/HCPCS: 99214 ==

== ENCOUNTER → 2024-05-13 13:10 | Outpatient (BNVA) | payer MEDICARE, MEDICAID, SELFPAY | PROVIDERS: PCP Nurse Practitioner Family; Referring Provider Nurse Practitioner Family; Visit Provider Physician Assistant Surgical | DX: J43.1 Panlobular emphysema (principal); Z87.891 Personal history of nicotine dependence; R91.1 Solitary pulmonary nodule; R06.2 Wheezing | CPT/HCPCS: 94640; 99214; J7620 ==

== ENCOUNTER 2024-05-14 01:25 | Outpatient (CLI) | payer MEDICARE, MEDICAID, SELFPAY ==
--- NOTE | 2024-05-14 08:00 | DI.CTLCSR_ITS ---
Exam(s) CT CHEST LUNG CANCER SCREEN EXAM: CT CHEST LUNG CANCER SCREEN CLINICAL HISTORY: Screening for lung cancer,former smoker, z87.891 TECHNIQUE: Imaging Protocol: Axial computed tomography images with coronal and sagittal reformatted images were created and reviewed. Low dose screening protocol. COMPARISON: CT CT CHEST WO from 04/12/[address] CHEST LUNG CANCER SCREEN from 04/14/2023 FINDINGS: Exam is limited by respiratory motion. Tracheobronchial tree: No bronchiectasis or mucus plugging. Mediastinum and Zohra: No dominant adenopathy or fluid collection. Pulmonary parenchyma: Evaluation somewhat limited due to respiratory motion. Atelectasis in right mi ddle lobe. No consolidation or dominant measurable mass. Moderate emphysematous changes. Mild inters titial changes. Lung Nodules: New 4 millimeter nodule left upper lobe. Stable 5 x 7 millimeter nodule medial left lo wer lobe. Pleura: No effusion. No pneumothorax. Heart: The heart is mildly dilated. Moderate coronary artery calcifications are seen. No pericardial effusion. Aorta: Thoracic aorta non-dilated. Upper abdomen: Cholecystectomy. Dilatation of abdominal aorta to 4 cm. Bones: Unremarkable for age. Soft Tissues: Unremarkable. IMPRESSION: Limited exam due to respiratory motion. New 4 millimeter nodule left upper lobe. Stable stable nodu le left lower lobe. Lung RADS Cat 3 - Probably Benign: Probably benign finding(s) - short term follow-up suggested; inclu de nodules with a low likelihood of becoming a clinically active cancer. Lung-RADS 1.0 CATEGORIES: Category 0 - Prior chest CT exam(s) being located for comparison. Category 1 - Annual screening in 12 months. No nodules or definitely benign nodules. Category 2 - Annual screening in 12 months. Benign appearance. Nodules with low likelihood of becomin g active cancer. Category 3 - 6-month follow-up. Probably benign. Short-term follow-up suggested. Nodules with low lik elihood of becoming active cancer. Category 4A - 3-month follow-up and CT/PET if >8 mm in size. Suspicious finding. Findings which requi re additional testing. Category 4B - Findings which require additional testing and tissue sampling. Category 4X - Category 3 or 4 nodules with additional features or imaging findings that increases the suspicion of malignancy. Modifier S- Potentially clinically significant findings (non lung cancer) RADIATION DOSE DELIVERED: !Error Total DLP DATA REPOSITORY: All CT scans at this facility are submitted to the National Radiology Data Registry (NRDR) Dose Index Registry (DIR) with the [employer] (ACR). RADIATION OPTIMIZATION: All CT scans at this facility use at least one of these dose optimization te chniques: automated exposure control; mA and/or kV adjustment per patient size (includes targeted exa ms where dose is matched to clinical indication); or iterative reconstruction.
== END 2024-05-14 01:45 ==
LOC: DI 01:25
PROVIDERS: PCP Nurse Practitioner Family; Visit Provider Physician Assistant Surgical
DX: Z87.891 Personal history of nicotine dependence (principal); Z12.2 Encounter for screening for malignant neoplasm of respiratory organs
CPT/HCPCS: 71271

== ENCOUNTER 2024-05-17 01:23 | Outpatient (CLI) | payer MEDICARE, MEDICAID, SELFPAY ==
[2024-05-17 15:16] LABS: HCT 45.9 % (40.0-50.0); HGB 15.7 g/dL (13.5-17.5); MCH 31.9 pg (27.0-33.0); MCHC 34.2 % (32.0-36.0); MCV 93 fL (80-95); Platelet Count 237 10^3/uL (130-400); RBC 4.92 10^6/uL (4.36-5.78); RDW 12.5 % (11.8-14.1); RDW-SD 42.6 fL
[2024-05-17 16:43] LABS: Anion Gap 7.9 mmol/L (3-11); BUN 13 mg/dL (7-18); CO2 30.1 mmol/L (21.0-32.0); Calculated LDL 83 mg/dL (<100); Chloride 102 mmol/L (98-107); Cholesterol 184 mg/dL (<200); Estimated GFR 80.97 (mL/min/1.73m2); Glucose 175 mg/dL (74-106); HDL Cholesterol 35 mg/dL (40-60); Potassium 3.6 mmol/L (3.5-5.1); Sodium 140 mmol/L (136-145); Triglyceride 331 mg/dL (<150)
== END 2024-05-17 01:24 | disposition home or self-care (01) ==
LOC: LBO 01:23
PROVIDERS: PCP Nurse Practitioner Family; Visit Provider Nurse Practitioner Family
DX: Z13.6 Encounter for screening for cardiovascular disorders (principal); D75.1 Secondary polycythemia; Z12.5 Encounter for screening for malignant neoplasm of prostate; Z13.1 Encounter for screening for diabetes mellitus
CPT/HCPCS: 36415; 80048; 80061; 84153; 85027

== ENCOUNTER → 2024-08-12 14:45 | Outpatient (BNVA) | payer MEDICARE, MEDICAID, SELFPAY | PROVIDERS: PCP Nurse Practitioner Family; Referring Provider Nurse Practitioner Family; Visit Provider Physician Assistant Surgical | DX: J43.1 Panlobular emphysema (principal); I27.20 Pulmonary hypertension, unspecified; R91.1 Solitary pulmonary nodule; Z87.891 Personal history of nicotine dependence; Z85.21 Personal history of malignant neoplasm of larynx | CPT/HCPCS: 99214 ==

== ENCOUNTER 2024-10-31 00:44 | Outpatient (CLI) | payer MEDICARE, MEDICAID, SELFPAY ==
--- NOTE | 2024-10-31 15:22 | DI.CT_ITS ---
Exam(s) CT CHEST WO EXAM: CT CHEST WO CLINICAL HISTORY: new 4mm ROLANDO nodule follow up, SOLITARY PULMONARY NODULE, R91.1 TECHNIQUE: Imaging Protocol: Axial computed tomography images with coronal and sagittal reformatted images were created and reviewed. Low dose screening protocol. COMPARISON: CT CT CHEST LUNG CANCER SCREEN from 05/14/2024 FINDINGS: Mediastinum and Zohra: No dominant adenopathy or fluid collection. Pulmonary parenchyma: No consolidation or dominant measurable mass. Moderate emphysematous changes. No significant interstitial changes. Lung Nodules: Stable 4 millimeter circumscribed nodule in left upper lobe. Stable 5 x 7 millimeter nodule medial left lower lobe. Pleura: No effusion. No pneumothorax. Aorta: Thoracic aorta non-dilated. Upper abdomen: Unremarkable. Bones: Unremarkable for age. Soft Tissues: Unremarkable. Tracheobronchial tree: No bronchiectasis. Mild peribronchial thickening in the right middle and right lower lobes. A tracheotomy is noted at the upper border of the images, not fully included on the scan. Mediastinum and Zohra: No dominant adenopathy or fluid collection. Pleura: No effusion. No pneumothorax. Heart: The heart is mildly dilated. Moderate coronary artery calcifications are seen. IMPRESSION: Stable left upper and left lower no lobe nodules. Lung RADS Cat 2 - Benign Appearance / Behavior: Nodules with a very low likelihood of becoming a clinically active cancer due to size or lack of growth Lung-RADS 1.0 CATEGORIES: Category 0 - Prior chest CT exam(s) being located for comparison. Category 1 - Annual screening in 12 months. No nodules or definitely benign nodules. Category 2 - Annual screening in 12 months. Benign appearance. Nodules with low likelihood of becoming active cancer. Category 3 - 6-month follow-up. Probably benign. Short-term follow-up suggested. Nodules with low likelihood of becoming active cancer. Category 4A - 3-month follow-up and CT/PET if >8 mm in size. Suspicious finding. Findings which require additional testing. Category 4B - Findings which require additional testing and tissue sampling. Category 4X - Category 3 or 4 nodules with additional features or imaging findings that increases the suspicion of malignancy. Modifier S- Potentially clinically significant findings (non lung cancer) RADIATION DOSE DELIVERED: !Error Total DLP Total DLP DATA REPOSITORY: All CT scans at this facility are submitted to the National Radiology Data Registry (NRDR) Dose Index Registry (DIR) with the [employer] ([employer]). RADIATION OPTIMIZATION: All CT scans at this facility use at least one of these dose optimization techniques: automated exposure control; mA and/or kV adjustment per patient size (includes targeted exams where dose is matched to clinical indication); or iterative reconstruction.
== END 2024-10-31 01:04 ==
LOC: DI 00:44
PROVIDERS: PCP Nurse Practitioner Family; Visit Provider Physician Assistant Surgical
DX: R91.1 Solitary pulmonary nodule (principal)
CPT/HCPCS: 71250

== ENCOUNTER → 2024-11-13 14:42 | Outpatient (BNVA) | payer MEDICARE, MEDICAID, SELFPAY | PROVIDERS: PCP Nurse Practitioner Family; Referring Provider Nurse Practitioner Family; Visit Provider Physician Assistant Surgical | DX: I27.20 Pulmonary hypertension, unspecified (principal); J43.1 Panlobular emphysema; Z87.891 Personal history of nicotine dependence | CPT/HCPCS: 99214 ==

== ENCOUNTER → 2025-02-12 14:29 | Outpatient (BNVA) | payer MEDICARE, MEDICAID, SELFPAY | PROVIDERS: PCP Nurse Practitioner Family; Referring Provider Nurse Practitioner Family; Visit Provider Physician Assistant Surgical | DX: I27.20 Pulmonary hypertension, unspecified (principal); J43.1 Panlobular emphysema; Z87.891 Personal history of nicotine dependence | CPT/HCPCS: 99214 ==

== ENCOUNTER → 2025-05-14 14:24 | Outpatient (BNVA) | payer MEDICARE, MEDICAID, SELFPAY | PROVIDERS: PCP Nurse Practitioner Family; Referring Provider Nurse Practitioner Family; Visit Provider Internal Medicine Pulmonary Disease | DX: J44.1 Chronic obstructive pulmonary disease with (acute) exacerbation (principal); J43.1 Panlobular emphysema; R91.1 Solitary pulmonary nodule; I27.20 Pulmonary hypertension, unspecified; Z87.891 Personal history of nicotine dependence; C32.9 Malignant neoplasm of larynx, unspecified | CPT/HCPCS: 99214 ==